=== PATIENT | female | born 1950 | race Caucasian/White ===

== ENCOUNTER 2022-11-28 10:07 | Outpatient (OUT) | payer MEDICARE, SELFPAY ==
--- NOTE | 2022-11-28 10:19 | US_ITS ---
The [address] [address] Patient Name: MAXINE MONTANO MRN: [id number] date: 1950 Sex: F Assigned Patient Location: Current Patient Location: Accession/Order Number: [id number] Exam Date: 11/28/2022 10:40 Report Date: 11/28/2022 11:40 At the request of: SHARLENE VAIL Procedure: US abdomen complete EXAM: US abdomen complete HISTORY: Abdominal Pain, Nausea COMPARISON: None. TECHNIQUE: Real-time complete abdomen ultrasound. Findings: The visualized portions of the aorta and IVC are unremarkable. Evaluation of the pancreas is limited due to overlying bowel gas. The visualized portions are unremarkable. Echogenic and coarsened hepatic parenchymal echotexture. Small geographic regions of hypoechogenicity adjacent to the gallbladder fossa. The main portal vein is patent and demonstrates hepatopedal flow. The gallbladder is fluid-filled and unremarkable without evidence of stones, wall thickening or pericholecystic fluid. No biliary ductal dilatation. The common bile duct measures 0.2 cm. The right and left kidneys measure 10.7 and 10.2 cm. Good corticomedullary differentiation bilaterally. No renal stones or collecting system dilatation. No focal mass or perinephric fluid collection. The spleen is nonenlarged measuring 9.9 cm and unremarkable. No free abdominal fluid. US/US abdomen complete IMPRESSION: 1. Fatty infiltration of the liver with regions of focal fatty sparing adjacent to the gallbladder fossa. Electronically authenticated by: ROYER RALPH Date: 11/28/2022 11:40
== END 2022-11-28 10:08 | disposition home or self-care (01) ==
LOC: US 10:13
PROVIDERS: PCP Nurse Practitioner; Visit Provider Nurse Practitioner
DX: R10.32 Left lower quadrant pain (principal); R11.2 Nausea with vomiting, unspecified; K76.0 Fatty (change of) liver, not elsewhere classified
CPT/HCPCS: 76700

== ENCOUNTER 2023-06-15 00:55 | Emergency (ER) | payer MEDICARE, SELFPAY ==
[2023-06-15] VITALS (39 sets, daily range): BP systolic 94–165; BP diastolic 60–100; PULSE 71–76; RESP 16–18; TEMP 36.6; O2SAT 90–96
--- NOTE | 2023-06-15 01:35 | ED.ABDPAIN1 ---
HPI - Abdominal Pain General Chief Complaint: Abdominal Pain Stated Complaint: abd pain Time Seen by Provider: 06/15/23 01:30 Source: patient Mode of arrival: Wheelchair Limitations: no limitations History of Present Illness HPI narrative: presents complaining of abdominal pain and nausea. LBM 8pm. pain started around 10:30AM. emesis x 4. Past abdominal hernia repair x 2 and past bowel obstruction . surgery at [facility] in [place]. Related Data Home Medications Medication Instructions Recorded Confirmed levothyroxine 100 mcg tablet mcg 06/15/23 Allergies Allergy/AdvReac Type Severity Reaction Status Date / Time codeine Allergy Verified 06/15/23 01:06 eszopiclone [From Lunesta] Allergy Verified 06/15/23 01:06 zolpidem [From Ambien] Allergy Verified 06/15/23 01:06 Review of Systems ROS Status of ROS 10 or more systems reviewed and unremarkable except as noted in history and below PFSH PFSH Social History Smoking status: Never smoker Exam Constitutional Vital Signs, click to edit/add: Last Vital Signs Temp 97.8 F 06/15/23 01:02 Pulse 71 06/15/23 04:32 Resp 16 06/15/23 04:32 BP 157/81 H 06/15/23 04:32 Pulse Ox 96 06/15/23 04:32 O2 Del Method Room Air 06/15/23 04:32 Common normals: no apparent distress, average body habitus, oriented x3, no limitations, healthy appearing, alert and well nourished [facility] Common normals: normocephalic and head/scalp atraumatic Eye Common normals: PERRL, EOMs intact bilaterally and conjunctivae normal Respiratory Common normals: normal respiratory effort, no retractions, no use of accessory muscles and clear to auscultation bilaterally Cardio Common normals: regular rate, regular rhythm, S1 normal heart sound and S2 normal heart sound GI Other: mild LLQ tenderness. No guarding or rebound Extremity Common normals: normal to inspection and full ROM Neuro Common normals: oriented x3, CN's II-XII intact bilaterally, moves all extremities, no focal motor deficits and no sensory deficits noted Psych Appearance: grossly normal Course Vital Signs Vital signs: Vital Signs Temperature 97.8 F 06/15/23 01:02 Pulse Rate 76 06/15/23 01:02 Respiratory Rate 18 02/23/24 01:02 Blood Pressure 165/67 H 06/15/23 01:02 Pulse Oximetry 96 06/15/23 01:02 Oxygen Delivery Method Room Air 06/15/23 01:02 Temperature 97.8 F 06/15/23 01:02 Pulse Rate 71 06/15/23 04:32 Respiratory Rate 16 06/15/23 04:32 Blood Pressure 157/81 H 06/15/23 04:32 Pulse Oximetry 96 06/15/23 04:32 Oxygen Delivery Method Room Air 06/15/23 04:32 MDM - Abdominal Pain MDM Narrative Medical decision making narrative: patient presents with acute onset of abdominal pain and emesis x 4. Started around 10PM. LBM normal around 8pm. Prior abdominal hernia repair x 2 and also past bowel obstruction about 10 years ago requiring placement of colostomy bag . States bag was reversed around 10 years ago also. No problem until now. Exam with mild tenderness. Pain had improved by the time she arrived here. has not required any pain medication. Nausea controlled with one dose of zofran. CT with findings of suspected low grade SBO. Discussed with surveillance monitor Surgeon Dr Mayo. Dr Mayo felt the patient should receive care at a larger facility[facility] Lab Data Labs: Lab Results 06/15/23 06/15/23 06/15/23 Range/Units 01:15 04:20 05:19 WBC 11.0 (4.0-11.0) 10^3/uL RBC 4.88 (4.20-5.40) 10^6/uL Hgb 14.3 (12.0-16.0) g/dL Hct 42.7 (36.0-48.0) % MCV 87.5 (81.0-99.0) fL MCH 29.3 (26.7-34.0) pg MCHC 33.5 (29.9-35.2) g/dL RDW 12.3 (11.0-15.0) % Plt Count 286 (150-450) 10^3/uL MPV 9.8 (9.5-13.5) fL Neut % (Auto) 75.6 H (43.0-75.0) % Lymph % (Auto) 16.8 L (20.5-60.0) % Smith % (Auto) 5.8 (1.7-12.0) % Eos % (Auto) 0.7 L (0.9-7.0) % Baso % (Auto) 0.5 (0.2-2.0) % Neut # (Auto) 8.3 H (1.4-6.5) 10^3/uL Lymph # (Auto) 1.9 (1.2-3.8) 10^3/uL Smith # (Auto) 0.6 (0.3-0.8) 10^3/uL Eos # (Auto) 0.1 (0.0-0.7) 10^3/uL Baso # (Auto) 0.1 (0.0-0.1) 10^3/uL Abs Immat Gran (auto) 0.07 H (0.00-0.03) 10^3/uL Imm/Tot Granulo (auto) 0.6 H (0.0-0.5) % Sodium 144 (136-145) mmol/L Potassium 3.7 (3.5-5.1) mmol/L Chloride 103 (98-107) mmol/L Carbon Dioxide 28.7 (21.0-32.0) mmol/L Anion Gap 16.0 BUN 14.0 (7.0-18.0) mg/dL Creatinine 0.88 (0.55-1.02) mg/dL Est GFR ( Amer) >60 (>=60) Est GFR (Non-Af Amer) >60 (>=60) BUN/Creatinine Ratio 15.9 Glucose 150 H (74-106) mg/dL Lactate 3.1 H* 3.5 H* (0.4-2.0) mmol/L Calcium 9.5 (8.5-10.1) mg/dL Total Bilirubin 0.3 (0.2-1.0) mg/dL AST 21 (15-37) U/L ALT 37 (14-59) U/L Alkaline Phosphatase 84 (46-116) U/L Troponin I High Sens 5.4 (4.0-51.3) pg/mL Total Protein 8.2 (6.4-8.2) g/dL Albumin 4.1 (3.4-5.0) g/dL Globulin 4.1 g/dL Albumin/Globulin Ratio 1.0 Lipase 56.0 (16.0-77.0) U/L Urine Color Lt. yellow (YELLOW) Urine Clarity Clear (CLEAR) Urine pH 7.0 (5.0-9.0) Ur Specific [place] 1.010 (1.005-1.025) Urine Protein Negative (NEG/TRACE) mg/dL Urine Glucose (UA) Negative (NEGATIVE) mg/dL Urine Ketones Negative (NEGATIVE) mg/dL Urine Occult Blood Negative (NEGATIVE) Urine Nitrite Negative (NEGATIVE) Urine Bilirubin Negative (NEGATIVE) Urine Urobilinogen 0.2 (0.2-1.0) EU/dL Ur Leukocyte Esterase Negative (NEGATIVE) Imaging Data Abdominal x-ray: Radiologist's impression: ITS Impressions Abdomen/Pelvis CT 06/15/23 01:36 IMPRESSION: Bowel gas pattern favoring fairly low-grade partial small bowel obstruction with a suspected point of transition in the left lower quadrant. Mild surrounding free fluid is reactive. No free air is seen. Additional nonacute findings are described above. Electronically authenticated by: BÁRBARA SHARMA Date: 06/15/2023 02:57 Discharge Plan Discharge Chief Complaint: Abdominal Pain Clinical Impression: Small bowel obstruction Patient Disposition: [facility] Discharge Location: [facility]
--- NOTE | 2023-06-15 01:36 | CT_ITS ---
The [facility] [address] [place], [place] [address] Patient Name: MAXINE MONTANO MRN: [id number] date: 1950 Sex: F Assigned Patient Location: ER Current Patient Location: .MAIN Accession/Order Number: [id number] Exam Date: 06/15/2023 02:16 Report Date: 06/15/2023 02:57 At the request of: ELMA COLEMAN Procedure: CT abdomen pelvis w con EXAM: CT abdomen pelvis w con HISTORY: abdominal pain . Prior appendectomy, hysterectomy and hernia repair. COMPARISON: Abdominal ultrasound, 11/28/2022. TECHNIQUE: IV contrast enhanced CT imaging the abdomen and pelvis was performed using 100 mL of Omnipaque 300 intravenous contrast. Sagittal and coronal reconstructions are provided. Dose reduction techniques were achieved by using automated exposure control and/or adjustment of mA and/or kV according to patient size and/or use of iterative reconstruction technique. FINDINGS: CT ABDOMEN: There is mild dependent atelectasis in the posterior lower lobes. The lung bases are otherwise clear. The imaged heart is unremarkable. The liver is enlarged but otherwise unremarkable. The gallbladder, pancreas, spleen, adrenal glands, and left kidney are unremarkable. Small right renal cortical cysts are noted. The right kidney is otherwise unremarkable. There are fairly mild aortic calcifications without aneurysm or dissection. The IVC appears normal. There is a small hiatal hernia. The stomach is otherwise normal. There are multiple fluid-filled mildly distended lower abdominal and pelvic small bowel loops with a suggested point of transition in the left lower quadrant. Mild surrounding is enteric fluid and fat stranding are present. There is no pneumatosis or free air. The distal small bowel is decompressed and unremarkable. CT PELVIS: Prior appendectomy, hysterectomy and partial sigmoidectomy are noted. There is mild colonic diverticulosis. The urinary bladder appears unremarkable. There is rectus diastasis with anterior bulging of the midline anterior abdominal wall. No loculated fluid, free air or soft tissue gas is seen in the abdomen or pelvis. A mild lumbar levoscoliosis is noted. There is advanced degenerative disc disease at L5-S1 with bilateral neural foraminal stenosis, left greater than right. No acute osseous abnormality or suspicious bony lesion is seen. CT/CT abdomen pelvis w con IMPRESSION: Bowel gas pattern favoring fairly low-grade partial small bowel obstruction with a suspected point of transition in the left lower quadrant. Mild surrounding free fluid is reactive. No free air is seen. Additional nonacute findings are described above. Electronically authenticated by: BÁRBARA SHARMA Date: 06/15/2023 02:57
[2023-06-15 01:49] LABS: Basophils Absolute Auto 0.1 10^3/uL (0.0-0.1); Basophils Percent Auto 0.5 % (0.2-2.0); Eosinophils Absolute Auto 0.1 10^3/uL (0.0-0.7); Eosinophils Percent Auto 0.7 % (0.9-7.0); Hematocrit 42.7 % (36.0-48.0); Hemoglobin 14.3 g/dL (12.0-16.0); Immature Granulocytes Abs Auto 0.07 10^3/uL (0.00-0.03); Immature Granulocytes Pct Auto 0.6 % (0.0-0.5); Lymphocytes Absolute Auto 1.9 10^3/uL (1.2-3.8); Lymphocytes Percent Auto 16.8 % (20.5-60.0); Mean Corpuscular HGB Conc 33.5 g/dL (29.9-35.2); Mean Corpuscular Hemoglobin 29.3 pg (26.7-34.0); Mean Corpuscular Volume 87.5 fL (81.0-99.0); Mean Platelet Volume 9.8 fL (9.5-13.5); Monocytes Absolute Auto 0.6 10^3/uL (0.3-0.8); Monocytes Percent Auto 5.8 % (1.7-12.0); Neutrophils Absolute Auto 8.3 10^3/uL (1.4-6.5); Neutrophils Percent Auto 75.6 % (43.0-75.0); Platelet Count 286 10^3/uL (150-450); Red Blood Count 4.88 10^6/uL (4.20-5.40); Red Cell Distribution Width 12.3 % (11.0-15.0)
[2023-06-15 02:00] LABS: Alanine Aminotransferase 37 U/L (14-59); Albumin Level 4.1 g/dL (3.4-5.0); Alkaline Phosphatase 84 U/L (46-116); Aspartate Amino Transferase 21 U/L (15-37); BUN Creatinine Ratio 15.9; Bilirubin Total 0.3 mg/dL (0.2-1.0); Calcium 9.5 mg/dL (8.5-10.1); Carbon Dioxide 28.7 mmol/L (21.0-32.0); Chloride 103 mmol/L (98-107); Estimated GFR (African America >60 (>=60); Estimated GFR (Non-African Ame >60 (>=60); Globulin 4.1 g/dL; Glucose 150 mg/dL (74-106); Potassium 3.7 mmol/L (3.5-5.1); Sodium 144 mmol/L (136-145); Total Protein 8.2 g/dL (6.4-8.2)
[2023-06-15] MEDS: 0.9 % SODIUM CHLORIDE 1,000 ML 999 ML IV (02:00)
[2023-06-15] MEDS: ONDANSETRON PF 4 MG/2 ML VIAL IV ×3 (02:00→10:52)
[2023-06-15 02:03] LABS: Troponin I High Sensitivity 5.4 pg/mL (4.0-51.3)
[2023-06-15 02:10] LABS: Lactate/Lactic Acid 3.1 mmol/L (0.4-2.0)
[2023-06-15 04:36] LABS: Bilirubin Urine NEGATIVE (NEGATIVE); Blood Urine NEGATIVE (NEGATIVE); Clarity Urine CLEAR (CLEAR); Color Urine LT. YELLOW (YELLOW); Glucose Urine UA NEGATIVE (NEGATIVE); Ketones Urine NEGATIVE (NEGATIVE); Leukocyte Esterase Urine NEGATIVE (NEGATIVE); Nitrite Urine NEGATIVE (NEGATIVE); Protein Urine NEGATIVE (NEG/TRACE); Urobilinogen Urine 0.2 EU/dL (0.2-1.0)
[2023-06-15 04:42] LABS: Urine Microscopic Indicated NO
[2023-06-15] MEDS: FENTANYL CITRATE/PF 100 MCG/2 ML VIAL 50 MCG IV (05:25)
[2023-06-15 05:49] LABS: Lactate/Lactic Acid 3.5 mmol/L (0.4-2.0)
[2023-06-15] MEDS: HYDROMORPHONE HCL 1 MG/ML CARTRIDGE 0.5 MG IVP (06:35)
--- NOTE | 2023-06-15 06:48 | XR_ITS ---
The [address] [address] Patient Name: MAXINE MONTANO MRN: [id number] date: 1950 Sex: F Assigned Patient Location: ER Current Patient Location: ER Accession/Order Number: [id number] Exam Date: 06/15/2023 06:57 Report Date: 06/15/2023 07:15 At the request of: ELMA COLEMAN Procedure: XR abdomen 1V EXAM: XR abdomen 1V HISTORY: Nasogastric tube placement. COMPARISON: CT abdomen/pelvis dated 06/15/2023. TECHNIQUE: AP erect portable view of the upper abdomen for evaluation of the esophageal tube placement. FINDINGS: The esophageal tube extends into the gastric fundus with the proximal sidehole near the GE junction. Consider advancing the esophageal tube. Please refer to the antecedent CT examination of the abdomen and pelvis for more detailed evaluation of the abdomen and pelvis. XR/XR abdomen 1V IMPRESSION: The esophageal tube extends into the gastric fundus with the proximal sidehole near the GE junction. Consider advancing the esophageal tube. Electronically authenticated by: ALEJANDRA KHAN Date: 06/15/2023 07:15
[2023-06-15] MEDS: 0.9 % SODIUM CHLORIDE 1,000 ML 75 ML IV (07:46)
[2023-06-15 08:53] LABS: Lactate/Lactic Acid 3.7 mmol/L (0.4-2.0)
[2023-06-15] MEDS: LACTATED RINGER'S SOLUTION 1,000 ML 1000 ML IV (09:25)
[2023-06-15] MEDS: HYDROMORPHONE HCL 0.5 MG/0.5 ML SYRINGE IV (10:52)
== END 2023-06-15 11:15 | disposition short-term general hospital (02) ==
PROVIDERS: Emergency Provider Internal Medicine; PCP Nurse Practitioner
DX: K56.600 Partial intestinal obstruction, unspecified as to cause (principal); Z90.710 Acquired absence of both cervix and uterus; Z90.49 Acquired absence of other specified parts of digestive tract
CPT/HCPCS: 36415; 74018; 74177; 80053; 81003; 83605; 83690; 84484; 85025; 96361; 96374; 96375; 96376; 99285; J1170; J2405; J3010; Q9967

== ENCOUNTER 2023-08-08 09:35 | Outpatient (OUT) | payer MEDICARE, SELFPAY ==
--- NOTE | 2023-08-08 09:41 | MM_ITS ---
Patient Name: MAXINE MONTANO MR#: [id number] : 1950 Exam Date: 08/08/2023 Ordering Doctor: SHARLENE VAIL . RADIOLOGY REPORT PROCEDURE: MM TOMOSYNTHESIS SCREENING BI COMPARISON: MG MAMM SCREEN ALFIE W CAD, 05/10/2017. MG MAMM SCREEN ALFIE W CAD, 04/18/2019. INDICATIONS: screening Calculator Name NCI Breast Cancer Risk Assessment Tool 5 Year Breast Cancer Risk 4.30% Lifetime Breast Cancer Risk 11.00% Personal Breast Cancer No Personal Ovarian Cancer No Treatments None Family Cancers Mother with breast cancer at age ~40; Grandmother-maternal with breast cancer at age ~82. LOCATION: [facility] BREAST COMPOSITION: There are scattered areas of fibroglandular density. FINDINGS: DIAGNOSTIC CATEGORY 2--BENIGN FINDING. NO CHANGE FROM COMPARISON. Extensive right and moderate left linear and microcalcifications, progressed from the prior exam likely representing secretory calcifications. Scattered benign-appearing lymph nodes are present. RIGHT BREAST: No significant suspicious finding. Stable area of focal asymmetry upper outer quadrant LEFT BREAST: No significant suspicious finding. RECOMMENDATIONS: ROUTINE MAMMOGRAM AND CLINICAL EVALUATION IN 12 MONTHS. PLEASE NOTE: A NORMAL MAMMOGRAM DOES NOT EXCLUDE THE POSSIBILITY OF BREAST CANCER. A CLINICALLY SUSPICIOUS PALPABLE LUMP SHOULD BE BIOPSIED. Dictated by: Fox Francisco MD on 08/08/2023 at 12:14 Approved by: Fox Francisco MD on 08/08/2023 at 12:16
== END 2023-08-08 09:36 | disposition home or self-care (01) ==
LOC: MAMMO 09:36
PROVIDERS: PCP Nurse Practitioner; Visit Provider Nurse Practitioner
DX: Z12.31 Encounter for screening mammogram for malignant neoplasm of breast (principal); Z80.3 Family history of malignant neoplasm of breast
CPT/HCPCS: 77063; 77067

== ENCOUNTER 2023-12-06 12:19 | Outpatient (OUT) | payer MEDICARE, SELFPAY ==
--- NOTE | 2023-12-06 | XR_ITS ---
The [place] [id number] Patient Name: MAXINE MONTANO MRN: [id number] date: 1950 Sex: F Assigned Patient Location: [facility] Current Patient Location: [facility] Accession/Order Number: [id number] Exam Date: 12/06/2023 12:40 Report Date: 12/10/2023 08:22 At the request of: SHARLENE VAIL Procedure: XR ribs LT min 3V w CXR1V EXAMINATION: XR ribs LT min 3V w CXR1V HISTORY: low back pain COMPARISON: No relevant comparison available. FINDINGS: LUNGS: No significant pulmonary parenchymal abnormalities. PLEURA: No pneumothorax, effusion, or pleural thickening. MEDIASTINUM: No visible mass or adenopathy. CARDIAC: No cardiomegaly or cardiac silhouette abnormality. RIBS: Contour deformity left posterior 10th rib OTHER: Negative. XR/XR ribs LT min 3V w CXR1V IMPRESSION: Clear lungs Age indeterminate fracture left posterior 10th rib Electronically authenticated by: MELODIE TORRES Date: 12/10/2023 08:22
--- NOTE | 2023-12-06 | XR_ITS ---
[address] [address] Patient Name: MAXINE MONTANO MRN: [id number] date: 1950 Sex: F Assigned Patient Location: [facility] Current Patient Location: Accession/Order Number: [id number] Exam Date: 12/06/2023 12:40 Report Date: 12/09/2023 16:23 At the request of: SHARLENE VAIL Procedure: XR lumbar spine min 4V EXAM: XR lumbar spine min 4V HISTORY: Low back pain/Fall COMPARISON: None. FINDINGS/IMPRESSION: 1. No acute fracture or dislocation. 2. Moderate disc degeneration at L5-S1 disc space. Moderate facet joint arthropathy of the lumbar spine. 3. Overlying bowel gas pattern is nonspecific and nonobstructive. 4. Vertebral body height is preserved. 5. Mild to moderate degeneration of the sacroiliac joints. 6. Mild degeneration of the bilateral hip joints. Electronically authenticated by: TRUPTI LIEBERMAN Date: 12/09/2023 16:23
--- OUTSIDE RECORDS SUMMARY | 2023-12-06 12:44 | XMS_ITS | CCD ---
Author Organization [facility] CliniSyny Care Team Providers Care Bilingual Call Center Representative Name Role Phone MARIAMA RUFFIN Admitting Unavailable MARIAMA RUFFIN Attending Unavailable CEDRIC VINCENT Referring Unavailable VINCENT, CEDRIC Primary Care Unavailable VINCENT, DR CEDRIC Cedeno Primary Care Unavailable VINCENT, DR CEDRIC Cedeno Admitting Unavailable VINCENT, DR CEDRIC Cedeno Attending Unavailable VINCENT, DR CEDRIC Cedeno Consulting Unavailable VINCENT, DR CEDRIC Cedeno Consulting Unavailable VINCENT, DR CEDRIC Cedeno Primary Care Unavailable VINCENT, DR CEDRIC Cedeno Admitting Unavailable VINCENT, DR CEDRIC Cedeno Attending Unavailable VANCE, DR MELODIE Sloan Consulting Unavailable CEDRIC VINCENT Primary Care Physician Sharlene Shah Primary Care Physician JENAE GARNICA Attending Unavailable GENNASHARLENE MARCIAL Referring Unavailable PETITTRAMSEY Carreno Attending Unavailable CHARLESCLARA FELIX Admitting Unavailable ELMA COLEMAN Referring Unavailable DAVINA PINO Attending Unavailable MARIAMA RUFFIN Attending Unavailable MARIAMA RUFFIN Attending Unavailable DAVINA PINO Referring Unavailable MARIAMA RUFFIN Referring Unavailable RUFFIN, MARIAMA Referring Unavailable TRENTON STACK Attending Unavailavila e Sharlene Shah Attending Unavailable Kera Retana Attending Unavailable Kera Retana Attending Unavailable Kera Retana Attending Unavailable Kera Retana Attending Unavailable AMERICA CRAIN Attending UnavailKera Nunes Attending Unavailable Barbara Mabry Attending Unavailable MabryBarbara harris GNorma Referring Unavailable GennaSharlene Admitting Unavailable GennaSharlene Attending Unavailable GennaSharlene marcial Attending Unavailable GennaSharlene marcial Admitting Unavailable GennaSharlene Referring Unavailable Mabry Basealex GNorma Attending Unavailable Mabry Basem GNorma Admitting Unavailable MabryBarbara Attending Unavailable MabryBarbara Referring Unavailable Genna, Sharlene Joyner Attending Unavailable Genna, Sharlene Joyner Attending Unavailable Genna, Sharlene Joyner Attending Unavailable Genna, Sharlene Joyner Attending Unavailable Genna, Sharlene Joyner Attending Unavailable Allergies Allergy Classification Reported Allergen(s) Allergy Type Date of Onset Reaction(s) Facility (13 sources) Codeine; Translations: [CODEINE] Drug Allergy 3 Unknown (qualifier value) [facility] Repository (12 sources) Eszopiclone; Translations: [LUNESTA] Drug Allergy 7 Dream, function (observable entity) [facility] Repository (12 sources) zolpidem; Translations: [AMBIEN] Drug Allergy 7 Violent acts towards others (finding) [facility] Repository (1 source) Eszopiclone; Translations: [ESZOPICLONE] Drug Allergy 4 [facility] Repository (1 source) zolpidem; Translations: [ZOLPIDEM] Drug Allergy 4 [facility] Repository Medications Current Medications Medication Drug Class(es) Dates Sig (Normalized) Sig (Original) acetaminophen 500 mg / diphenhydrAMINE hydrochloride 25 mg oral tablet (7 sources) Histamine-1 Receptor Antagonist Start: 10-02-2022 take 1 tablet by mouth once daily at bedtime Tylenol Extra Strength PM oral tablet 1 tab(s), Oral, Once a day (at bedtime), Refill(s) 0 Start Date: 10/02/22 Status: Ordered ALPRAZolam 0.25 mg oral tablet (4 sources) Benzodiazepine Start: 04-09-2023 take 1 tablet by mouth three times daily as needed for anxiety Xanax 0.25 mg Tab 0.25 mg = 1 tab(s), Oral, TID, PRN Anxiety, # 15 tab(s), Refills(s) 0, Pharmacy: [id number], 157.5, cm, 04/09/23 10:17:00 EST, Height/Length Dosing, 81.3, kg, 04/09/23 10:17:00 EST, Weight Dosing Start Date: 04/09/23 Status: Ordered amoxicillin 875 mg / clavulanate 125 mg oral tablet (1 source) Penicillin-class Antibacterial Start: 07-23-2023 End: 07-30-2023 take 1 tablet by mouth every twelve hours Augmentin 875 mg oral tablet = 1 tab(s), Oral, q12hr, X 7 day(s), # 14 tab(s), Refills(s) 0, Pharmacy: [facility]/pharmacy #[id number], 157, cm, 07/23/23 12:52:00 EDT, Height/Length Dosing, 82.9, kg, 07/23/23 12:52:00 EDT, Weight Dosing Start Date: 07/23/23 Stop Date: 07/30/23 Status: Ordered Ascorbic Acid (9 sources) Vitamin C Start: 08-25-2022 Vitamin C Daily, Refills(s) 0 Start Date: 08/25/22 Status: Ordered Aspirin (9 sources) Platelet Aggregation Inhibitor, Nonsteroidal Anti-inflammatory Drug Start: 08-25-2022 aspirin 81 mg, Daily Start Date: 08/25/22 Status: Ordered Start: 08-25-2022 aspirin Start Date: 08/25/22 Status: Ordered Chondroitin Sulfates / Glucosamine (8 sources) Start: 10-02-2022 take 1 capsule by mouth once daily Chondroitin-Glucosamine 1 cap(s), Oral, Daily, Refill(s) 0 Start Date: 10/02/22 Status: Ordered estradiol 0.1 mg/ml vaginal cream (9 sources) Estrogen Start: 09-12-2022 Estrace 0.1 mg/g Cream See Instructions, 42.5 gm, Refill(s) 6, Apply pea-sized amount around the opening of the urethra and vagina 3 times per week at night for one month then 2 times per week after for maintenance., [facility], 158, cm, 09/12/22 10:10:00 EDT, Height/Length Dosing, 82.9, kg, 09/12/22 10:10:00 EDT, Weight Dosing Start Date: 09/12/22 Status: Ordered Start: 08-25-2022 Estrace 0.1 mg /g Cream See Instructions, 42.5 gm, Refill(s) 6, Apply pea-sized amount around the opening of the urethra and surrounding tissue 3 times per week at night for one month then 2 times per week after for maintenance., [facility], 158, cm, 08/25/22 11:11... Start Date: 08/25/22 Status: Ordered Fish Oils (11 sources) Start: 02-21-2023 Fish Oil Oral, Refill(s) 0 Start Date: 02/21/23 Status: Ordered Start: 08-25-2022 take 1000 mg by mouth once dianelys ly Fish Oil 1,000 mg, Oral, Daily Start Date: 08/25/22 Status: Ordered Start: 08-25-2022 Fish Oil Oral Start Date: 08/25/22 Status: Ordered levothyroxine sodium 0.1 mg oral tablet (9 sources) l-Thyroxine Start: 07-10-2023 take 1 tablet by mouth once daily levothyroxine 100 mcg (0.1 mg) Tab 100 mcg = 1 tab(s), Oral, Daily, # 90 tab(s), Refills(s) 1, Pharmacy: [facility]/pharmacy #[id number], 157, cm, 05/23/23 10:42:00 EST, Height/Length Dosing, 77.5, kg, 05/23/23 10:42:00 EST, Weight Dosing Start Date: 07/10/23 Status: Ordered Start: 10-02-2022 take 1 tablet by malgorzata once daily levothyroxine 100 mcg (0.1 mg) Tab 100 mcg = 1 tab(s), Oral, Daily, Refills(s) 0 Start Date: 10/02/22 Status: Ordered Start: 08-25-2022 levothyroxine Daily Start Date: 08/25/22 Status: Ordered loratadine 10 mg oral tablet (8 sources) Start: 10-02-2022 take 1 tablet by mouth once daily loratadine 10 mg Tab 10 mg = 1 tab(s), Oral, Daily, Refills(s) 0 Start Date: 10/02/22 Status: Ordered Misc Medication (4 sources) Start: 12-05-2022 Misc Medicatio n calcium 500 mg, Daily Start Date: 12/05/22 Status: Ordered Prevagen (4 sources) Start: 12-05-2022 take 50 ug by mouth once daily Prevagen 50 mcg, Oral, Daily, Refills(s) 0 Start Date: 12/05/22 Status: Ordered Problems Active Problems Problem Classification Problem Date Documented Date Episodic/Chronic Abdominal pain (8 sources) Abdominal pain 11-22-2022 Episodic Anal and rectal conditions (2 sources) Rectal prolapse; Translations: [Rectal prolapse] Onset: 10-31-2023 Episodic Anxiety disorders (5 sources) Anxiety 04-09-2023 Chronic Chronic obstructive pulmonary disease and bronchiectasis (5 sources) Bronchitis 04-09-2023 Episodic Coma; stupor; and brain damage (5 sources) Daytime somnolence 04-09-2023 Episodic Deficiency and other anemia (9 sources) Anemia 08-25-2022 Episodic Diverticulosis and diverticulitis (8 sources) Diverticulitis 11-22-2022 Chronic Genitourinary symptoms and ill-defined conditions (20 sources) Sensation as if bladder still full; Translations: [Feeling of incomplete bladder emptying] Onset: 08-25-2022 Episodic Malaise and fatigue (4 sources) Other fatigue; Translations: [OTHER FATIGUE] Onset: 08-16-2021 Episodic Menopausal disorders (11 sources) Atrophic vaginitis; Translations: [Postmenopausal atrophic vaginitis] Onset: 08-25-2022 Chronic Other connective tissue disease (4 sources) Cramp in lower limb 07-23-2023 Episodic Other connective tissue disease (2 sources) Other specified disorders of muscle; Translations: [Other specified disorders of muscle] Onset: 10-31-2023 Episodic Other diseases of bladder and urethra (9 sources) Urethral stricture; Translations: [Other urethral stricture, female] Onset: 11-28-2023 09-12-2022 Episodic Other diseases of bladder and urethra (2 sources) Male urethral stricture; Translations: [Unspecified urethral stricture, male, unspecified site] Onset: 02-21-2023 Episodic Other lower respiratory disease (5 sources) Snoring 04-09-2023 Episodic Other lower respiratory disease (4 sources) Cough 05-14-2023 Episodic Other non-traumatic joint disorders (4 sources) Pain in right ankle and joints of right foot; Translations: [PAIN IN RIGHT ANKLE] Onset: 10-19-2021 Episodic Other skin disorders (5 sources) Changes in skin texture 04-09-2023 Episodic Other upper respiratory infections (5 sources) Sinusitis 04-09-2023 Chronic Other upper respiratory infections (4 sources) Posterior rhinorrhea 07-10-2023 Episodic Otitis media and related conditions (8 sources) Finding of fluid behind tympanic membrane; Translations: [Otitis media of right ear] 05-14-2023 Episodic Residual codes; unclassified (1 source) Obstructive sleep apnea syndrome; Translations: [Obstructive sleep apnea (adult) (pediatric)] Onset: 08-17-2023 Chronic Thyroid disorders (1 source) Hypothyroidism, unspecified; Translations: [HYPOTHYROIDISM UNSPECIFIED] Onset: 08-18-2021 Chronic Unclassified (9 sources) Finding of sensation of bladder 08-25-2022 Urinary tract infections (14 sources) Urinary tract infectious disease; Translations: [Urinary tract infection, site not specified] Onset: 02-21-2023 Episodic Past or Other Problems Problem Classification Problem Date Documented Da te Episodic/Chronic Intestinal obstruction without hernia (2 sources) Partial intestinal obstruction, unspecified as to cause; Translations: [Partial intestinal obstruction, unspecified as to cause] Onset: 06-15-2023 Episodic Results Test Name Value Interpretation Reference Range Facil ity Ambulatory Visit Summaryon 0 11-28-2023 Ambulatory Visit Summary Ambulatory Visit Summary FELISHA MONTANO :1950 Visit Date:11/28/2023 Ambulatory Visit Instructions Your Diagnosis Feeling of incomplete bladder emptying Urinary urgency Other urethral stricture, female Your Care Team Attending Physician - Kera Retana MD Primary Care Physician - Sharlene Correa This Is Your Medications List Contact prescribing physician if questions or concerns ascorbic acid (Vitamin C) aspirin chondroitin-glucosam ine (Chondroitin-Glucosa mine) estradiol topical (Estrace 0.1 mg/g Cream) levothyroxine (levothyroxine 100 mcg (0.1 mg) Tab) loratadine (loratadine 10 mg Tab) omega-3 polyunsaturated fatty acids (Fish Oil) Procedures Performed Cystoscopy (09/12/2022), Appendectomy, Colonoscopy, Hernia, Hysterectomy. Discharge Vitals Heart Rate (Peripheral) 79 Respiratory Rate 16 Blood Pressure 132/78 Height 157 cm Height 62 in Weight 82 kg Weight 180.4 lb BMI 33.27 What to do next Scheduled Follow-Up Appointments Sunday 9:30 AM EDT Where: [address] [address]- You Need to Schedule the Following Appointments Follow Up with Mazin PRYOR, Kera Smith, MELINDA, [facility] When: Comments: 6 mos (no labs) Where: [address] [place] [address] [phone] Medications What How Much When Instructions Unchanged ascorbic acid (Vitamin C) Every day Contact prescribing physician if questions or concerns Unchanged aspirin 81 Milligram Every day Contact prescribing physician if questions or concerns Unchanged chondroitin-glucosam ine (Chondroitin-Glucosa mine) 1 Capsules By Mouth Every day Contact prescribing physician if questions or concerns Unchanged estradiol topical (Estrace 0.1 mg/ g Cream) See instructions Apply pea-sized amount around the opening of the urethra and vagina 3 times per week at night for one month then 2 times per week after for maintenance. Contact prescribing physician if questions or concerns Unchanged levothyroxine (levothyroxine 100 mcg (0.1 mg) Tab) 1 Tablets By Mouth Every day Contact prescribing physician if questions or concerns Unchanged loratadine (loratadine 10 mg Tab) 1 Tablets By Mouth Every day Contact prescribing physician if questions or concerns Unchanged omega-3 polyunsaturated fatty acids (Fish Oil) By Mouth Contact prescribing physician if questions or concerns Allergies Ambien (Violent acts towards others) Lunesta (Dreams) codeine (Unknown) Problems Ongoing - Any problem that you are currently receiving treatment for. Abdominal pain Anemia Bronchitis Cough Daytime sleepiness Diverticulitis Dysuria Feeling of incomplete bladder emptying Fluid level behind tympanic membrane of both ears Hematuria Leg cramps Other urethral stricture, female Purulent postnasal drainage Right otitis media Sinusitis Situational anxiety Skin texture changes Snoring Urinary urgency UTI (urinary tract infection) UTI due to Klebsiella species Vaginal atrophy Patient Survey You may receive a survey via text or e-mail asking about your office visit. Please share your experience with us by completing your survey. We appreciate your feedback and thank you for choosing us for your care. Education Materials Urethral Stricture Urethral stricture is narrowing of the tube (urethra) that carries urine from the bladder out of the body. The urethra can become narrow due to scar tissue from an injury or infection. This can make it difficult to pass urine. In women, the urethra opens above the vaginal opening. In men, the urethra opens at the tip of the penis, and the urethra is much longer than it is in women. Because of the length of the male urethra, urethral stricture is much more common in men. This condition is treated with surgery. What are the causes? In both men and women, common causes of urethral stricture include: ? Urinary tract infection (UTI). ? Sexually transmitted infection (STI). ? Use of a tube placed into the urethra to drain urine from the bladder (urinary catheter). ? Urinary tract surgery. In men, common causes of urethral stricture include: ? A severe injury to the pelvis. ? Prostate surgery. ? Injury to the penis. In many cases, the cause of urethral stricture is not known. What increases the risk? You are more likely to develop this condition if you: ? Are male. Men who have had prostate surgery are at risk of developing this condition. ? Use a urinary catheter. ? Have had urinary tract surgery. What are the signs or symptoms? The main symptom of this condition is difficulty passing urine. This may cause decreased urine flow, dribbling, or spraying of urine. Other symptom of this condition may include: ? Frequent UTIs. ? Blood in the urine. ? Pain when urinating. ? Swelli (more content not included)... [facility] Urology Office/Clinic Noteon 11-28-2023 Urology Office/Clinic Note Urology Office/Clinic Note Chief Complaint 3m HPI Staff 3m DX: Feeling of Incomplete Bladder Emptying, Urgency, Urethral Stricture & UTI Estrace Cream 0.1mg/g every 4 days Did test + for Covid 12 days ago. Denies current sx. Feels empty after voiding. Urgency depends on if she is constipated. Hx of rectal prolapse. Is scheduled with Dr jenn [place] for pelvic floor evaluation later this month. Denies UTI since last encounter. Content with current urinary sx. No concerns at this time. History of Present Illness Tests reviewed: reviewed UA I have reviewed the previous health record information and history for this patient from Dr. Retana and BECKY Gary. I have reviewed and verified the staff HPI to be accurate for this encounter. Review of Systems PHQ Score Initial Depression Screen Score: 0 SCORE ROS - Provider Constitutional: denies weight loss, denies hot flashes. Eyes: denies eye problems. Gastrointestinal: denies nausea, denies vomiting. Cardiovascular: denies chest pain or angina. Integumentary: no dryness Musculoskeletal: denies musculoskeletal symptoms. ENMT: denies otolaryngeal symptoms. Respiratory: no shortness of breath. Heme/Lymph: denies easy bleeding tendency, denies easy bruising tendency. Psychiatric: no confusion, no anxiety. Genitourinary: See HPI. Physical Exam Vitals & Measurements HR: 79(Peripheral) RR: 16 BP: 132/78 HT: 62 in HT: 157 cm WT: 82 kg WT: 180.4 lb BMI: 33.27 General Appearance: alert , no acute distress, well nourished, well developed female. Assessment/Plan Had two abd hernia in 6 mos s/p surgical repair. Hx of rectal prolapse. 1. Feeling of incomplete bladder emptying (R39.14: Feeling of incomplete bladder emptying) CT AP wo con 01/30/[address] report- Kidneys unremarkable. Moderately distended bladder. Hx of hysterectomy ~20 yrs ago due to prolapse. Pt unsure if her bladder was dropping as well. Thinks she had bladder sling placed. Pt had Uros many years ago, was unable to void after filling bladder, endorses shy bladder. Did not have any tx or follow-up after that she knows of. S/p Cysto/UD 09/12/22 to 20 Fr due to sling [1] PVR (cc): 02/21/23 - 143 05/23/23 - 354 08/21/23 - 0 (voided prior to appt) Previously declined CIC/catheter. Pt has been voiding q2hrs during the day. Also using estrogen cream q4d. Reports she now feels she empties after voiding. Doing PFPT at home, feels this has helped some. -Cont timed voids, PFPT at home, estrogen cream -Has PFPT scheduled with a provider in [place] -Bowel regimen -Notify us if sx return, develop UTIs or incontinence 2. Urinary urgency (R39.15: Urgency of urination) BBS 8 (13). Urgency varies with constipation. Does not feel urinary sxs are bothersome otherwise. Again advised pt to increase water and fiber intake to manage BMs. -Cont timed voids, double voids, PFPT at home, estrogen cream -Has PFPT scheduled with a provider in [place] -Bowel regimen 3. Other urethral stricture, female (N35.82: Other urethral stricture, female) S/p Cysto/UD 09/12/22 to 20 Fr due to sling [2] Monson dilation helped, feels empty and stream is good. UA today negative for blood and infection. Denies infections since last encounter. -notify us if sx return Follow-up With When Contact Information Mazin PRYOR, Kera Smith, URL, [facility] [address], [place] [address] [phone] Additional Instructions: 6 mos (no labs) Patient Education Urethral Stricture I, Betsy Fields, personally scribed for Dr. Retana on 11/28/2023 09:16:15. . Documentation recorded by the scribe, Betsy Fields, accurately reflects the services(s) I performed and decisions made by me. Authenticated by Dr. Retana on 11/28/2023 09:26:18. Problem List/Past Medical History Ongoing Abdominal pain Anemia Bronchitis Cough Daytime sleepiness Diverticulitis Dysuria Feeling of incomplete bladder emptying Fluid level behind tympanic membrane of both ears Hematuria Leg cramps Other urethral stricture, female Purulent postnasal drainage Right otitis media Sinusitis Situational anxiety Skin texture changes Snoring Urinary urgency UTI (urinary tract infection) UTI due to Klebsiella species Vaginal atrophy Historical No qualifying data Procedure/Surgical History Cystoscopy (09/12/2022), Appendectomy, Colonoscopy, Hernia, Hysterectomy. Medications aspirin, 81 mg, Daily Chondroitin-Glucosam ine, 1 cap(s), Oral, Daily Estrace 0.1 mg/g Cream, See Instructions, 6 refills Fish Oil, Oral levothyroxine 100 mcg (0.1 mg) Tab, 100 mcg= 1 tab(s), Oral, Daily, 1 refills loratadine 10 mg Tab, 10 mg= 1 tab(s), Oral, Daily Vitamin C, Daily Allergies Ambien (Violent acts towards others) Lunesta (Dreams) codeine (Unknown) Social History Alcohol Wine, 1-2 times per year, Household alcohol concerns: No., 12/05/2022 Tobacco Never (less than 100 in (more content not included)... [facility] Comment on above: Result Comment: Elec tronically Signed By: Mazin PYROR, Kera Smith\.br\Date and Time Signed: 11/28/23 09:26 EDT\.br\Electronically Co-Signed By: Betsy Fields\.br\Date and Time Co-Signed: 11/28/23 09:16 EDT Ambulatory Visit Summaryon 0 11-16-2023 Ambulatory Visit Summary Ambulatory Visit Summary FELISHA MONTANO :1950 Visit Date:11/16/2023 Ambulatory Visit Instructions Your Diagnosis COVID-19 virus infection Cough Body aches Your Care Team Attending Physician - SUMAN STACK CNP Primary Care Physician - Sharlene Correa This Is Your Medications List acetaminophen-diphen hydrAMINE (Tylenol Extra Strength PM oral tablet) alprazolam (Xanax 0.25 mg Tab) ascorbic acid (Vitamin C) aspirin chondroitin-glucosam ine (Chondroitin-Glucosa mine) estradiol topical (Estrace 0.1 mg/g Cream) levothyroxine (levothyroxine 100 mcg (0.1 mg) Tab) loratadine (loratadine 10 mg Tab) nirmatrelvir-ritonav ir (Paxlovid 150 mg-100 mg oral tablet) omega-3 polyunsaturated fatty acids (Fish Oil) Procedures Performed Cystoscopy (09/12/2022), Appendectomy, Colonoscopy, Hernia, Hysterectomy. Discharge Vitals Temperature (Temporal Artery) 36.7 ?C Heart Rate (Peripheral) 78 Respiratory Rate 20 Blood Pressure 122/82 Height 157.0 cm Height 62 in Weight 92.1 kg Weight 202.62 lb BMI 37.36 What to do next Scheduled Follow-Up Appointments Sunday 9:30 AM EDT With: Where: [facility] [address] [address]- Sunday 9:00 AM EDT With: Mazin PRYOR, Kera Smith Where: [facility] [address] [place] [address]- Medications What How Much When Why Instructions New nirmatrelvir-ritonav ir (Paxlovid 150 mg-100 mg oral tablet) See instructions COVID-19 virus infection Cough Body aches 3 Tablets twice daily for 5 days Pickup at [facility]/pharmacy #[id number] Unchanged acetaminophen-diphen hydrAMINE (Tylenol Extra Strength PM oral tablet) 1 Tablets By Mouth Once a day (at bedtime) Unchanged alprazolam (Xanax 0.25 mg Tab) 1 Tablets By Mouth 3 times a day as needed for Anxiety Situational anxiety Sinusitis Bronchitis Daytime sleepiness Snoring Non-smoker BMI 32.0-32.9,adult Unchanged ascorbic acid (Vitamin C) Every day Unchanged aspirin 81 Milligram Every day Unchanged chondroitin-glucosam ine (Chondroitin-Glucosa mine) 1 Capsules By Mouth Every day Unchanged estradiol topical (Estrace 0.1 mg/ g Cream) See instructions Apply pea-sized amount around the opening of the urethra and vagina 3 times per week at night for one month then 2 times per week after for maintenance. Unchanged levothyroxine (levothyroxine 100 mcg (0.1 mg) Tab) 1 Tablets By Mouth Every day Unchanged loratadine (loratadine 10 mg Tab) 1 Tablets By Mouth Every day Unchanged omega-3 polyunsaturated fatty acids (Fish Oil) By Mouth Pharmacy Information [facility]/pharmacy #[id number]: [address], [place] [phone] Allergies Ambien (Violent acts towards others) Lunesta (Dreams) codeine (Unknown) Problems Ongoing - Any problem that you are currently receiving treatment for. Abdominal pain Anemia Bronchitis Cough Daytime sleepiness Diverticulitis Dysuria Feeling of incomplete bladder emptying Fluid level behind tympanic membrane of both ears Hematuria Leg cramps Purulent postnasal drainage Right otitis media Sinusitis Situational anxiety Skin texture changes Snoring Urethral stricture Urinary urgency UTI (urinary tract infection) UTI due to Klebsiella species Vaginal atrophy Patient Survey You may receive a survey via text or e-mail asking about your office visit. Please share your experience with us by completing your survey. We appreciate your feedback and thank you for choosing us for your care. [facility] Family Medicine Office/Clini c Noteon 11-16-2023 Family Medicine Office/Clinic Note Family Medicine Office/Clinic Note HPI Staff Felisha is a 73 year old female presenting with cough sore throat, dizziness, body aches, fatigue. ( COVID test NEG done yesterday (11/15/23) C/O: cough, sore throat, dizziness, body aches Duration: _ Started on 11/13/23 Body aches: yes Chills: no Fatigue: yes Cough: yes Sore throat: yes Fever: yes Headache: yes Nasal congestion: yes Loss of taste: yes Loss of smell: yes Eye itching/watering: no Sneezing: yes SOB: no Known Exposure: no Took Mucinex- Did help a little bit last dose was last night at 10 p.m.today Tested COVID- Positive IO today I have reviewed and verified the staff HPI to be accurate for this encounter. History of Present Illness 73 year old patient of Clara Shah CNP presents today for evaluation of fatigue, dizziness, cough, sore throat, and body aches since Sunday. She reports she did a COVID test on Sunday that was negative. She reports she took some OTC Mucinex that helped some but not much. Review of Systems PHQ Score Initial Depression Screen Score: 0 SCORE Constitutional: no fever, no chills, no sweats, no weakness; body aches Skin: no Jaundice, no rash, no lesions, nopetechiae ENMT: no ear pain, mild sore throat, mild congestion, no hoarseness Respiratory: no shortness of breath, mild cough, no orthopnea, no wheezing Cardiovascular: no chest pain, no palpitations, no edema Gastrointestinal: no nausea, no vomiting, no diarrhea, no GI bleeding Musculoskeletal: no back pain, no trauma Neurologic: no headache, no dizziness, no numbness, no weakness Psychiatric: no sleeping problems, no irritability, no mood swings/depression. Additional ROS info: Except as noted in the above Review of Systems and in the History of Present Illness all other systems have been reviewed and are negative or noncontributory. Physical Exam Vitals & Measurements T: 36.7 ?C(Temporal Artery) HR: 78(Peripheral) RR: 20 BP: 122/82 SpO2: 97% HT: 62 in HT: 157.0 cm WT: 92.1 kg WT: 202.62 lb BMI: 37.36 General: alert, no acute distress ENMT: TM's clear, oral mucosa moist, yes mild pharyngeal erythema or exudate Cardiovascular: regular rate and rhythm, normal peripheral perfusion Respiratory: Lungs CTA, respirations non labored Extremities: no deformity, no trauma Neurological: oriented x 4, LOC appropriate for age speech normal Assessment/Plan 1. COVID-19 virus infection (U07.1: COVID-19) COVID positive today in the office Encouraged to increase fluids OTC acetaminophen for discomfort or fever f/u as needed Ordered: nirmatrelvir-ritonav ir, See Instructions, Oral, BID, 30 tab(s), Refill(s) 0, 3 Tablets twice daily for 5 days, [id number], 157, cm, 11/16/23 10:07:00 EDT, Height/Length Dosing, 92.1, kg, 11/16/23 10:07:00 EDT, Weight Dosing Rapid COVID POC 53978 2. Cough (R05.9: Cough, unspecified) COVID positive today in the office Encouraged to increase fluids OTC acetaminophen for discomfort or fever f/u as needed Ordered: nirmatrelvir-ritonav ir, See Instructions, Oral, BID, 30 tab(s), Refill(s) 0, 3 Tablets twice daily for 5 days, [id number], 157, cm, 11/16/23 10:07:00 EDT, Height/Length Dosing, 92.1, kg, 11/16/23 10:07:00 EDT, Weight Dosing Rapid COVID POC 90892 3. Body aches (R52: Pain, unspecified) COVID positive today in the office Encouraged to increase fluids OTC acetaminophen for discomfort or fever f/u as needed Ordered: nirmatrelvir-ritonav ir, See Instructions, Oral, BID, 30 tab(s), Refill(s) 0, 3 Tablets twice daily for 5 days, [id number], 157, cm, 11/16/23 10:07:00 EDT, Height/Length Dosing, 92.1, kg, 11/16/23 10:07:00 EDT, Weight Dosing Rapid COVID POC 11318 Follow-up No qualifying data available Patient Education COVID-19 Problem List/Past Medical History Ongoing Abdominal pain Anemia Bronchitis Cough Daytime sleepiness Diverticulitis Dysuria Feeling of incomplete bladder emptying Fluid level behind tympanic membrane of both ears Hematuria Leg cramps Purulent postnasal drainage Right otitis media Sinusitis Situational anxiety Skin texture changes Snoring Urethral stricture Urinary urgency UTI (urinary tract infection) UTI due to Klebsiella species Vaginal atrophy Historical No qualifying data Procedure/Surgical History Cystoscopy (09/12/2022), Appendectomy, Colonoscopy, Hernia, Hysterectomy. Medications aspirin, 81 mg, Daily Chondroitin-Glucosam ine, 1 cap(s), Oral, Daily Estrace 0.1 mg/g Cream, See Instructions, 6 refills Fish Oil, Oral levothyroxine 100 mcg (0.1 mg) Tab, 100 mcg= 1 tab(s), Oral, Daily, 1 refills loratadine 10 mg Tab, 10 mg= 1 tab(s), Oral, Daily Paxlovid 150 mg-100 mg oral tablet, See Instructions, Oral, BID Tylenol Extra Strength PM oral tablet, 1 tab(s), Oral, Once a day (at bedtime) Vitamin C, Daily Xanax 0.25 mg Tab, 0.25 mg= 1 tab(s), Oral, TID, PRN Allergies Ambien (Violent acts toward (more content not included)... [facility] Comment on above: Result Comment: Elec tronically Signed By: SUMAN STACK CNP\.br\Date and Time Signed: 11/16/23 11:33 EDT Office Visiton 10-31-2023 Follow-up visit [id number] Felisha Montano 1950 F Date Provider Department [facility] 10/[facility] [address] Family History Problem Relation Age of Onset Breast cancer Mother Ulcers Father Family Status - Relation Status Age at Mother Father Level of Service:01255 DC OFFICE/OUTPATIENT NEW LOW MDM 30 MINUTES Reason for Visit and Comments: Follow-up [580783] - Felisha is here today for follow up: Rectal Prolapse, S/P CT Normal [facility] Screenson 08-24-2023 Screens [id number] #1.00TIFF [facility] Prescriptions/Work Noteson 0 08-23-2023 Prescriptions/Work Notes [id number] 6#1.00TIFF [facility] Ambulatory Visit Summaryon 0 08-21-2023 Ambulatory Visit Summary FELISHA MONTANO :1950 Visit Date:08/21/2023 Ambulatory Visit Instructions Your Diagnosis Feeling of incomplete bladder emptying Urinary urgency Urethral stricture UTI (urinary tract infection) Your Care Team Attending Physician - YOLI CRAIN PA-C Primary Care Physician - Sharlene Correa This Is Your Medications List acetaminophen-diphen hydrAMINE (Tylenol Extra Strength PM oral tablet) alprazolam (Xanax 0.25 mg Tab) ascorbic acid (Vitamin C) aspirin chondroitin-glucosam ine (Chondroitin-Glucosa mine) estradiol topical (Estrace 0.1 mg/g Cream) levothyroxine (levothyroxine 100 mcg (0.1 mg) Tab) loratadine (loratadine 10 mg Tab) omega-3 polyunsaturated fatty acids (Fish Oil) Procedures Performed Cystoscopy (09/12/2022), Appendectomy, Colonoscopy, Hernia, Hysterectomy. Discharge Vitals Temperature (Temporal Artery) 36.8 ?C Heart Rate (Peripheral) 63 Respiratory Rate 19 Blood Pressure 129/66 Height 157 cm Height 62 in Weight 77.5 kg Weight 170.5 lb BMI 31.44 What to do next Scheduled Follow-Up Appointments Sunday 9:30 AM EDT With: Where: [facility] Normal [address] [place] [address] \.br\ Medications\.br\ What How Much When Why Instructions\.br\ Unchanged acetaminophen-diphen hydrAMINE (Tylenol Extra Strength PM oral tablet) 1 Tablets By Mouth Once a day (at bedtime)\.br\ Unchanged alprazolam (Xanax 0.25 mg Tab) 1 Tablets By Mouth 3 times a day as needed for Anxiety Situational anxiety Sinusitis Bronchitis Daytime sleepiness Snoring Non-smoker BMI 32.0-32.9,adult\.br\ Unchanged ascorbic acid (Vitamin C) Every day\.br\ Unchanged aspirin 81 Milligram Every day\.br\ Unchanged chondroitin-glucosam ine (Chondroitin-Glucosa mine) 1 Capsules By Mouth Every day\.br\ Unchanged estradiol topical (Estrace 0.1 mg/ g Cream) See instructions Apply pea-sized amount around the opening of the urethra and vagina 3 times per week at night for one month then 2 times per week after for maintenance. \.br\ Unchanged levothyroxine (levothyroxine 100 mcg (0.1 mg) Tab) 1 Tablets By Mouth Every day\.br\ Unchanged loratadine (loratadine 10 mg Tab) 1 Tablets By Mouth Every day\.br\ Unchanged omega-3 polyunsaturated fatty acids (Fish Oil) By Mouth\.br\ Allergies\.br\ Ambien (Violent acts towards others)\.br\ Lunesta (Dreams)\.br\ codeine (Unknown)\.br\ Problems\.br\ Ongoing - Any problem that you are currently receiving treatment for.\.br\ Abdominal pain\.br\ Anemia\.br\ Bronchitis\.br\ Cough\.br\ Daytime sleepiness\.br\ Diverticulitis\.br\ Dysuria\.br\ Feeling of incomplete bladder emptying\.br\ Fluid level behind tympanic membrane of both ears\.br\ Hematuria\.br\ Leg cramps\.br\ Purulent postnasal drainage\.br\ Right otitis media\.br\ Sinusitis\.br\ Situational anxiety\.br\ Skin texture changes\.br\ Snoring\.br\ Urethral stricture\.br\ Urinary urgency\.br\ UTI (urinary tract infection)\.br\ UTI due to Klebsiella species\.br\ Vaginal atrophy\.br\ Patient Survey\.br\ You may receive a survey via text or e-mail asking about your office visit. Please share your experience with us by completing your survey. We appreciate your feedback and thank you for choosing us for your care.\.br\ Education Materials\.br\ Antibiotic Medicine, Adult\.br\ \.br\ Antibiotic medicines are used to treat infections caused by bacteria, such as strep throat and urinary tract infection (UTI). Antibiotic medicines will not work for colds, the flu (influenza), or other illnesses caused by viruses. These medicines work by killing the bacteria that are making you sick. Antibiotics can also have serious side effects. It is important that you take antibiotic medicines safely and only when needed.\.br\ When do I need to take antibiotics?\.br\ You may need antibiotics for:\.br\ ? \.br\ UTI.\.br\ ? \.br\ Strep throat.\.br\ ? \.br\ Bacterial sinusitis.\.br\ ? \.br\ Meningitis. This infection affects the spinal cord and brain.\.br\ ? \.br\ Serious lung infection.\.br\ You may start antibiotics while your health care provider waits for your results from any tests for possible infection. Tests may include a culture of your throat, urine, blood, or mucus. Your health care provider may change or stop your antibiotic depending on your test results.\.br\ When are antibiotics not needed?\.br\ You do not need antibiotics for most common illnesses. These illnesses may be caused by a virus, not by bacteria. You do not need antibiotics for:\.br\ ? \.br\ The common cold.\.br\ ? \.br\ Influenza.\.br\ ? \.br\ Sore throat.\.br\ ? \.br\ Discolored mucus.\.br\ ? \.br\ Bronchitis.\.br\ Antibiotics are not always needed for all infections caused by bacteria. Many of these infections clear up without antibiotic treatment. Do not ask for or take antibiotics when they are not necessary.\.br\ How long should I take my antibiotic?\.br\ You must take the entire prescription. Continue to take your antibiotic for as long as told by your health care provider. Do not stop taking it even if you start to feel better. If you stop taking it too soon:\.br\ ? \.br\ You may start to feel sick again.\.br\ ? \.br\ Your infection may become harder to treat.\.br\ Each course of antibiotics needs a different amount of time to work. Some antibiotic courses last only a few days. Some last about a week to 10 days. In some cases, you may need to take antibiotics for a few weeks to completely treat your infection.\.br\ What if I miss a dose?\.br\ Try not to miss any doses of medicine. If you miss a dose, call your health care provider or pharmacist for advice. Sometimes it is okay to take the missed dose as soon as possible. Do not take double or extra doses.\.br\ What are the risks of taking antibiotics?\.br\ Antibiotics can cause:\.br\ ? \.br\ Allergic reactions.\.br\ ? \.br\ Nausea.\.br\ ? \.br\ Yeast infections.\.br\ ? \.br\ Liver problems.\.br\ Antibiotics can also cause an infection called Clostridioides difficile (C. difficile or C. diff), which causes severe diarrhea. This infection happens when the antibiotics kill the healthy bacteria in your intestines. This allows C. diff to grow. C. diff needs to be treated right away. Let your health care provider know if:\.br\ ? \.br\ You develop diarrhea while taking an antibiotic.\.br\ ? \.br\ You develop diarrhea after you stop taking an antibiotic. C. diff infection can start weeks after stopping the antibiotic.\.br\ Taking an antibiotic also puts you at risk for getting sick in the future with bacteria that do not respond to medicine (antibiotic-resistan t infection). Antibiotics can cause bacteria to change so that if the antibiotic is taken again, the medicine cannot kill the bacteria. These infections can be more serious and, in some cases, life-threatening.\.b r\ Do antibiotics affect control?\.br\ control pills may not work while you are on antibiotics. If you are taking control pills, continue taking them as usual and use a second form of control, such as a condom, to avoid unwanted . Continue using the second form of control until your health care provider says you can stop.\.br\ What else should I know about taking antibiotics?\.br\ \.br\ It is important for you to take antibiotics exactly as told. Make sure to:\.br\ ? \.br\ Take the correct amount of medicine at the same time each day.\.br\ ? \.br\ Ask your health care provider:\.br\ ? \.br\ How long to wait between doses.\.br\ ? \.br\ If your antibiotic should be taken with food.\.br\ ? \.br\ If there are any foods, drinks, or medicines that you should avoid while taking your antibiotics.\.br\ ? \.br\ If there are any side effects you should be aware of.\.br\ ? \.br\ Use only the antibiotics prescribed for you by your health care provider. Do not use antibiotics prescribed for someone else.\.br\ ? \.br\ Drink a large glass of water when taking your antibiotics. Drink enough fluid to keep your urine pale yellow.\.br\ ? \.br\ Ask your pharmacist for a syringe, cup, or spoon that properly measures your antibiotics.\.br\ ? \.br\ Throw away any leftover medicine.\.br\ Follow these instructions at home:\.br\ ? \.br\ Take qfxb-ron-uoxrutf and prescription medicines as told by your health care provider.\.br\ ? \.br\ Return to your normal activities as told by your health care provider. Ask your health care provider what activities are safe for you.\.br\ ? \.br\ Keep all follow-up visits as told by your health care provider. This is important.\.br\ Contact a healt [facility] Patient Educationon 08-21-19 Patient Education Caregiving Antibiotic Medicine, Adult Antibiotic medicines are used to treat infections caused by bacteria, such as strep throat and urinary tract infection (UTI). Antibiotic medicines will not work for colds, the flu (influenza), or other illnesses caused by viruses. These medicines work by killing the bacteria that are making you sick. Antibiotics can also have serious side effects. It is important that you take antibiotic medicines safely and only when needed. When do I need to take antibiotics? You may need antibiotics for: ? UTI. ? Strep throat. ? Bacterial sinusitis. ? Meningitis. This infection affects the spinal cord and brain. ? Serious lung infection. You may start antibiotics while your health care provider waits for your results from any tests for possible infection. Tests may include a culture of your throat, urine, blood, or mucus. Your health care provider may change or stop your antibiotic depending on your test results. When are antibiotics not needed? You do not need antibiotics for most common illnesses. These illnesses may be caused by a virus, not by bacteria. You do not need antibiotics for: ? The common cold. ? Influenza. ? Sore throat. ? Discolored mucus. ? Bronchitis. Antibiotics are not always needed for all infections caused by bacteria. Many of these infections clear up without antibiotic treatment. Do not ask for or take antibiotics when they are not necessary. How long should I take my antibiotic? You must take the entire prescription. Continue to take your antibiotic for as long as told by your health care provider. Do not stop taking it even if you start to feel better. If you stop taking it too soon: ? You may start to feel sick again. ? Your infection may become harder to treat. Each course of antibiotics needs a different amount of time to work. Some antibiotic courses last only a few days. Some last about a week to 10 days. In some cases, you may need to take antibiotics for a few weeks to completely treat your infection. What if I miss a dose? Try not to miss any doses of medicine. If you miss a dose, call your health care provider or pharmacist for advice. Sometimes it is okay to take the missed dose as soon as possible. Do not take double or extra doses. What are the risks of taking antibiotics? Antibiotics can cause: ? Allergic reactions. ? Nausea. ? Yeast infections. ? Liver problems. Antibiotics can also cause an infection called Clostridioides difficile (C. difficile or C. diff), which causes severe diarrhea. This infection happens when the antibiotics kill the healthy bacteria in your intestines. This allows C. diff to grow. C. diff needs to be treated right away. Let your health care provider know if: ? You develop diarrhea while taking an antibiotic. ? You develop diarrhea after you stop taking an antibiotic. C. diff infection can start weeks after stopping the antibiotic. Taking an antibiotic also puts you at risk for getting sick in the future with bacteria that do not respond to medicine (antibiotic-resistan t infection). Antibiotics can cause bacteria to change so that if the antibiotic is taken again, the medicine cannot kill the bacteria. These infections can be more serious and, in some cases, life-threatening. Do antibiotics affect control? control pills may not work while you are on antibiotics. If you are taking control pills, continue taking them as usual and use a second form of control, such as a condom, to avoid unwanted . Continue using the second form of control until your health care provider says you can stop. What else should I know about taking antibiotics? It is important for you to take antibiotics exactly as told. Make sure to: ? Take the correct amount of medicine at the same time each day. ? Ask your health care provider: ? How long to wait between doses. ? If your antibiotic should be taken with food. ? If there are any foods, drinks, or medicines that you should avoid while taking your antibiotics. ? If there are any side effects you should be aware of. ? Use only the antibiotics prescribed for you by your health care provider. Do not use antibiotics prescribed for someone else. ? Drink a large glass of water when taking your antibiotics. Drink enough fluid to keep your urine pale yellow. ? Ask your pharmacist for a syringe, cup, or spoon that properly measures your antibiotics. ? Throw away any leftover medicine. Follow these instructions at home: ? Take nqto-uyt-tpgutze and prescription medicines as told by your health care provider. ? Return to your normal activities as told by your health care provider. Ask your health care provider what activities are safe for you. ? Keep all follow-up visits as told by your health care provider. This is important. Contact a health care provider if: ? Your symptoms get worse. (more content not included)... [facility] Patient Eval Forms Officeon 08-21-2023 Patient Eval Forms Office [id number] 5#1.00TIFF [facility] Urology Office/Clinic Noteon 08-21-2023 Urology Office/Clinic Note Chief Complaint 2 month with PVR HPI Staff KML pt. 3m PVR. DX: Feeling of Incomplete Emptying, Urgency, Urethral Stricture & UTI *Estrace Cream 0.1mg/g every 4 days. [facility] ER 06/15/23 CC: abdominal pain CT ap w 06/15/23 Ab XR 06/15/23 DX: SBO Pt was transferred to [facility] DC'd home 06/17/23 w/new Dx of Diverticulitis Dysuria: no Incomplete bladder emptying: occasionally, PVR 0mL Hematuria: no Frequency: 2-3 hours Urgency: Pt. states if she waits to long Nocturia: occasionally 1x Stream: most of the time good stream Post void dripping: no Wearing pads/ Depends: no Urge incontinence: occasionally Stress incontinence: no Incontinence without Sensory Awareness: no Abdominal pain: no Flank pain: no Review of Systems PHQ Score Initial Depression Screen Score: 0 SCORE no fever, chills, malaise, myalgia. no rash/lesions. no chest pain, palpitations, or SOB. no abdominal pain, nausea, vomiting. no unilateral calf swelling, redness, pain Physical Exam Vitals & Measurements T: 36.8 ?C(Temporal Artery) HR: 63(Peripheral) RR: 19 BP: 129/66 HT: 62 in HT: 157 cm WT: 77.5 kg WT: 170.5 lb BMI: 31.44 General: nontoxic, NAD Mouth: moist mucosa Lungs: normal respiratory effort Cardio: regular rate, good distal perfusion Abdomen: nondistended, no suprapubic distention or tenderness, no CVA tenderness Neurologic: Grossly normal Skin: No rashes or suspicious lesions Assessment/Plan Had two abd hernia in 6 mos s/p surgical repair. Hx of rectal prolapse. 1. Feeling of incomplete bladder emptying (R39.14: Feeling of incomplete bladder emptying) CT AP wo con 01/30/[address] report- Kidneys unremarkable. Moderately distended bladder. Hx of hysterectomy 20 yrs ago due to prolapse. Pt unsure if her bladder was dropping as well. Thinks she had bladder sling placed. Pt had Uros many years ago, was unable to void after filling bladder, endorses shy bladder. Did not have any tx or follow-up after that she knows of. S/p Cysto/UD 09/12/22 to 20 Fr due to sling 05/23/23: PVR 354 (143cc) Occasionally will get up in the middle of the night due to urge to void, slow stream and small amounts. Sometimes will occur during the day as well. Denies visible blood in urine. Voiding q3-4hrs, does admit to needing to do timed voids. Discussed bladder pathophysiology. Advised pt that she is not emptying well and should start to do the timed voids again. Counseled pt on the risks of not voiding often including UTIs, bladder atony and renal failure. She declines CIC/cath. -Timed voids. Dbl voids. Estrace. Behavior mods. F/u 1-2 mos w PVR. Reconsider CIC vs UD if PVR remains elevated at f/u TODAY: pt unable to void. emptied at home before arrival. PVR 0ml. has been compliant w timed voiding and dbl void maneuvers. using estrogen cream as instructed. Ordered: 13736 Measure Post Void residual urine and/or bladder capacity by US- non-imaging Body Mass Index (BMI) documented 3008F Complex E&M Add on G2211 Current tobacco non-user 1036F Depression Screening Negative 3352F E&M of Est. Patient Low 20-29 Min 17829 Medication list documented in medical record 1159F Most recent diastolic blood pressure <80 mm Hg 3078F Patient screen for fall risk: no falls in last year or 1 fall with no injury in last year 1101F Review of all meds by a prescribing practitioner or clinical pharmacist documented in EHR 1160F Systolic BP <130 mm Hg (Most Recent) 3074F 2. Urinary urgency (R39.15: Urgency of urination) 05/23/23: BBS 14. Will not give OAB meds at this time given incomplete bladder emptying. -Timed voiding, PFPT at home. Bowel regimen. See #1. TODAY: reports not too bothersome. rare UUI. does not feel sx warrant tx. BBSQ 13 good control. bowel habits much better w fiber. Ordered: Complex E&M Add on G2211 E&M of Est. Patient Low 20-29 Min 56471 3. Urethral stricture (N35.919: Unspecified urethral stricture, male, unspecified site) S/p Cysto/UD 09/12/22 to 20 Fr due to sling Pt states that she has noticed a lot of improvement in her urinary stream since starting the Estrace cream. Denies weak stream consistently, only when holds urine for too long. -Pt to notify us if having consistently weak stream again for potential repeat dilation TODAY: denies weak stream. does not think time for another UD. Ordered: Complex E&M Add on G2211 E&M of Est. Patient Low 20-29 Min 82486 4. UTI (urinary tract infection) (N39.0: Urinary tract infection, site not specified) PCP 10/02/22 c/o pain and burning with urinating. Was given Macrobid & Pyridium. UA showed blood, C&S >100,000 cfu/ml Staphylococcus haemolyticus 100 cfu/ml Mixed skin contaminants 10/23/22 pt had called her PCP stating she finished scripts and was still having pain and burning, was given a second round of abx. Abdominal US 11/28/22 - no stones or hydro -Cranberry pills, probiotics, D mannose. Estrace cream. Timed voids, see #1. TODAY: not taking OTC preventives. is usi (more content not included)... [facility] Comment on above: Result Comment: Elec tronically Signed By: YOLI CRAIN PA-C\Date and Time Signed: 08/21/23 15:19 EDT Consent for Treatmenton 07-23 Consent for Treatment [id number] #1.00TIFF Normal [facility] Sleep Office/Clinic Noteon 0 08-17-2023 Sleep Office/Clinic Note History of Present Illness Here to establish care for underlying obstructive sleep apnea. The patient reports that she was told by her that she snores loudly at night and awakens herself up while asleep feeling choked and gasping for air. She has significant fatigue and daytime sleepiness Given the above the patient underwent a sleep study and is here to discuss results and guide further management. She reports that her weight has been relatively stable. Review of Systems Constitutional: no fever, no chills, no sweats, no weakness Skin: no Jaundice, no rash, no lesions, no petechiae ENT: no ear pain, no sore throat, no congestion, no hoarseness Respiratory: Denies shortness of breath, cough or wheezing Cardiovascular: no chest pain, no palpitations, no edema Gastrointestinal: no nausea, no vomiting, no diarrhea, no GI bleeding Genitourinary: no dysuria, no hematuria, no discharge, no pain Musculoskeletal: no back pain, no trauma Neurologic: no headache, no dizziness, no numbness, no weakness Psychiatric: no irritability, no mood swings/depression. Heme/Lymph: no bleeding tendency, no bruising tendency, no petechiae, no swollen nodes Allergy/Immunologic: no seasonal allergies, no food allergies, no recurrent infections, no impaired immunity Additional ROS info: Except as noted in the above Review of Systems and in the History of Present Illness all other systems have been reviewed and are negative or noncontributory. Physical Exam General: Awake, alert, in no acute distress Skin: warm, dry Head: no trauma, normocephalic. Prolonged soft palate Neck: Trachea midline, no adenopathy, no tenderness Eye: normal conjunctiva, sclera clear ENMT: TM's clear, oral mucosa moist, no pharyngeal erythema or exudate Cardiovascular: regular rate and rhythm, normal peripheral perfusion Respiratory: Good breath sounds to both lung vyas without wheezing or crackles. Gastrointestinal: soft, non distended, no tenderness, no guarding. Back: No tenderness, Normal ROM, Normal alignment. Extremities: no deformity, no trauma Neurological: oriented x 4, LOC appropriate for age, CN II-XII intact, motor strength equal & normal bilaterally, sensation equal & normal bilaterally, speech normal Psychiatric: cooperative, affect appropriate for age, normal judgement, normal psychiatric thoughts. Assessment/Plan 1. QUINN (obstructive sleep apnea) (G47.33: Obstructive sleep apnea (adult) (pediatric)) The patient's sleep study was reviewed and results were discussed with the patient in details. Evidence of moderate underlying obstructive sleep apnea with an apnea hypotony index of 16.7/hour with mild oxygen desaturation noted. The etiology of obstructive sleep apnea and methods of treatment were discussed with the patient in details. She is agreeable to treatment. I will arrange for a CPAP machine with a pressure of 10 cm via mask of her choice with heated humidity and see her back after 6 to 8 weeks with a download from her machine to reevaluate her treatment plan. She will call me back in the meantime if any issues. Follow-up With When Contact Information Raghavendra PRYOR, Barbara Agarwal, PUL, ANNA Within [address] [place] [address] [facility] [place] [address]- Additional Instructions: Problem List/Past Medical History Ongoing Abdominal pain Anemia Bronchitis Cough Daytime sleepiness Diverticulitis Dysuria Feeling of incomplete bladder emptying Fluid level behind tympanic membrane of both ears Hematuria Leg cramps Purulent postnasal drainage Right otitis media Sinusitis Situational anxiety Skin texture changes Snoring Urethral stricture Urinary urgency UTI (urinary tract infection) UTI due to Klebsiella species Vaginal atrophy Historical No qualifying data Procedure/Surgical History Cystoscopy (09/12/2022), Appendectomy, Colonoscopy, Hernia, Hysterectomy. Medications aspirin, 81 mg, Daily Chondroitin-Glucosam ine, 1 cap(s), Oral, Daily Estrace 0.1 mg/g Cream, See Instructions, 6 refills Fish Oil, Oral levothyroxine 100 mcg (0.1 mg) Tab, 100 mcg= 1 tab(s), Oral, Daily, 1 refills loratadine 10 mg Tab, 10 mg= 1 tab(s), Oral, Daily Tylenol Extra Strength PM oral tablet, 1 tab(s), Oral, Once a day (at bedtime) Vitamin C, Daily Xanax 0.25 mg Tab, 0.25 mg= 1 tab(s), Oral, TID, PRN Allergies Ambien (Violent acts towards others) Lunesta (Dreams) codeine (Unknown) Social History Alcohol Wine, 1-2 times per year, Household alcohol concerns: No., 12/05/2022 Tobacco Never (less than 100 in lifetime) Tobacco Use:. Never Smokeless Tobacco Use:. Household tobacco concerns: No. Yes, 07/23/2023 Family History Arthritis: Mother. High blood pressure: Mother. Multiple sclerosis: Father. Primary malignant neoplasm of female breast: Mother. Immunizations Vaccine Date Status Comments zoster vaccine, inactivated 02/16/2023 Recorded diphtheria/pertussis , ac (more content not included)... Normal [facility] Comment on above: Result Comment: Elec tronically Signed By: Raghavendra PRYOR, Barbara Agarwal\.br\Date and Time Signed: 08/17/23 12:20 EDT Outside Mammographyon 2023 Outside Mammography [id number] #1.00TIFF [facility] Follow-Upon 08-07-2023 Follow-Up [id number] Felisha Montano 1950 F Date Provider Department Center 08/07/2023 [facility] SURG [address] Family History Problem Relation Age of Onset Breast cancer Mother Ulcers Father Family Status - Relation Status Age at Mother Father Level of Service:64739 DC OFFICE/OUTPATIENT ESTABLISHED LOW MDM 20 MIN Reason for Visit and Comments: Hospital Follow-up [832] - Felisha is here today for a hospital follow up for small bowel obstruction. Normal [facility] Reminderson 07-25-2023 Reminders - From: Sharlene Correa To: [facility] - Clinical; Sent: 2023 08:17:42 EDT Show up: 2023 08:17:00 EDT Subject: Ambulatory Reminder Due Date/Time: 07/25/2023 08:16:00 EDT electrolytes are normal not sure why she is getting leg cramps Results: Date Result Name Value Ref Range 07/23/2023 13:30 Glucose Lvl 107 mg/dL (55 - 199) 07/23/2023 13:30 BUN 13 mg/dL (5 - 21) 07/23/2023 13:30 Creatinine 0.7 mg/dL (0.5 - 1.3) 07/23/2023 13:30 eGFR 92 mL/min/1.73 m2 (>=59 - ) 07/23/2023 13:30 BUN/Creat Ratio 19 (10 - 20) 07/23/2023 13:30 Sodium Lvl 136 mmol/L (135 - 145) 07/23/2023 13:30 Potassium Lvl 4.1 mmol/L (3.5 - 5.3) 07/23/2023 13:30 Chloride 103 mmol/L (101 - 111) 07/23/2023 13:30 CO2 26 mmol/L (21 - 31) 07/23/2023 13:30 AGAP 11 mEq/L (6 - 16) 07/23/2023 13:30 Calcium Lvl 9.6 mg/dL (8.9 - 11.1) please notify patient of message below, also let her know Sharlene advised she should try some magnesium OTC to see if that may help. Patient informed of lab results and instructions. Patient voiced understanding. Normal [facility] Ambulatory Visit Summaryon 0 07-23-2023 Ambulatory Visit Summary FELISHA MONTANO :1950 Visit Date:07/23/2023 Ambulatory Visit Instructions Your Diagnosis Right otitis media Leg cramps Fluid level behind tympanic membrane of both ears BMI 33.0-33.9,adult Non-smoker Your Care Team Attending Physician - Sharlene Correa Primary Care Physician - Sharlene Correa This Is Your Medications List acetaminophen-diphen hydrAMINE (Tylenol Extra Strength PM oral tablet) alprazolam (Xanax 0.25 mg Tab) amoxicillin-clavulan ate (Augmentin 875 mg oral tablet) ascorbic acid (Vitamin C) aspirin chondroitin-glucosam ine (Chondroitin-Glucosa mine) estradiol topical (Estrace 0.1 mg/g Cream) levothyroxine (levothyroxine 100 mcg (0.1 mg) Tab) loratadine (loratadine 10 mg Tab) omega-3 polyunsaturated fatty acids (Fish Oil) Procedures Performed Cystoscopy (09/12/2022), Appendectomy, Colonoscopy, Hernia, Hysterectomy. Discharge Vitals Heart Rate (Peripheral) 64 Respiratory Rate 18 Blood Pressure 122/80 Height 157.0 cm Height 62 in Weight 82.9 kg Weight 182.38 lb BMI 33.63 What to do next Scheduled Follow-Up Appointments Sunday 2:20 PM EDT With: PARAS CROSS, YOLI Cedeno Where: [facility] [id number] \.br\ Medications\.br\ What How Much When Why Instructions\.br\ New amoxicillin-clavulan ate (Augmentin 875 mg oral tablet) 1 Tablets By Mouth Every 12 hours Right otitis media Leg cramps Fluid level behind tympanic membrane of both ears BMI 33.0-33.9,adult Non-smoker Duration: 7 Days Pickup at [facility]/pharmacy #[id number]\.br\ Unchanged acetaminophen-diphen hydrAMINE (Tylenol Extra Strength PM oral tablet) 1 Tablets By Mouth Once a day (at bedtime)\.br\ Unchanged alprazolam (Xanax 0.25 mg Tab) 1 Tablets By Mouth 3 times a day as needed for Anxiety Situational anxiety Sinusitis Bronchitis Daytime sleepiness Snoring Non-smoker BMI 32.0-32.9,adult\.br\ Unchanged ascorbic acid (Vitamin C) Every day\.br\ Unchanged aspirin 81 Milligram Every day\.br\ Unchanged chondroitin-glucosam ine (Chondroitin-Glucosa mine) 1 Capsules By Mouth Every day\.br\ Unchanged estradiol topical (Estrace 0.1 mg/ g Cream) See instructions Apply pea-sized amount around the opening of the urethra and vagina 3 times per week at night for one month then 2 times per week after for maintenance. \.br\ Unchanged levothyroxine (levothyroxine 100 mcg (0.1 mg) Tab) 1 Tablets By Mouth Every day\.br\ Unchanged loratadine (loratadine 10 mg Tab) 1 Tablets By Mouth Every day\.br\ Unchanged omega-3 polyunsaturated fatty acids (Fish Oil) By Mouth\.br\ Pharmacy Information\.br\ [id number]: [address], [place] [id number] [phone]\.br\ Allergies\.br\ Ambien (Violent acts towards others)\.br\ Lunesta (Dreams)\.br\ codeine (Unknown)\.br\ Problems\.br\ Ongoing - Any problem that you are currently receiving treatment for.\.br\ Abdominal pain\.br\ Anemia\.br\ Bronchitis\.br\ Cough\.br\ Daytime sleepiness\.br\ Diverticulitis\.br\ Dysuria\.br\ Feeling of incomplete bladder emptying\.br\ Fluid level behind tympanic membrane of both ears\.br\ Hematuria\.br\ Leg cramps\.br\ Purulent postnasal drainage\.br\ Right otitis media\.br\ Sinusitis\.br\ Situational anxiety\.br\ Skin texture changes\.br\ Snoring\.br\ Urethral stricture\.br\ Urinary urgency\.br\ UTI (urinary tract infection)\.br\ UTI due to Klebsiella species\.br\ Vaginal atrophy\.br\ Patient Survey\.br\ You may receive a survey via text or e-mail asking about your office visit. Please share your experience with us by completing your survey. We appreciate your feedback and thank you for choosing us for your care.\.br\ \.br\ [facility] BMPon 07-23-2023 Anion gap [Moles/Vol] 11 mmol/L Normal 6-16 [facility] Comment on above: Performed By: #### 1 [id number] ####[facility] [address] [place] [address] Calcium [Mass/Vol] 9.6 mg/dL Normal 8.9-11.1 [facility] Comment on above: Performed By: #### 1 [id number] ####[facility] [address] [place] [address] Chloride [Moles/Vol] 103 mmol/L Normal 101-111 [facility] Comment on above: Performed By: #### 1 [id number], [id number] ####[facility] [address] [place] [address] CO2 [Moles/Vol] 26 mmol/L Normal 21-31 [facility] Comment on above: Performed By: #### 1 [id number], [id number] ####[facility] [address] [place] [address] Creatinine [Mass/Vol] 0.7 mg/dL Normal 0.5-1.3 [facility] Comment on above: Performed By: #### 1 [id number], [id number] ####[facility] [address] [place] [address] Glucose [Mass/Vol] 107 mg/dL Normal 55-199 [facility] Comment on above: Performed By: #### 1 [id number], [id number] ####[facility] [address] [place] [address] Potassium [Moles/Vol] 4.1 mmol/L Normal 3.5-5.3 [facility] Comment on above: Performed By: #### 1 [id number], [id number] ####[facility] [address] [place] [address] Sodium [Moles/Vol] 136 mmol/L Normal 135-145 [facility] Comment on above: Performed By: #### 1 [id number], [id number] ####[facility] [address] [place] [address] Urea nitrogen [Mass/Vol] 13 mg/dL Normal 5-21 [facility] Comment on above: Performed By: #### 1 [id number], [id number] ####[facility] [address] [place] [address] Urea nitrogen/Creatinin e [Mass ratio] 19 No Units Normal 10-20 [facility] Comment on above: Performed By: #### 1 [id number], [id number] ####[facility] [address] [place] [address] CHEMISTRYOrdered By: SYSTEM SYSTEM on 04-01-2024 Anion gap [Moles/Vol] 11 mmol/L Normal 6 - 16 mEq/L Remisol Chem Calcium [Mass/Vol] 9.6 mg/dL Normal 8.9 - 11.1 mg/dL Rem[facility] Chloride [Moles/Vol] 103 mmol/L Normal 101 - 111 mmol/L Rem[facility] CO2 [Moles/Vol] 26 mmol/L Normal 21 - 31 mmol/L Remis ol Chem Creatinine [Mass/Vol] 0.7 mg/dL Normal 0.5 - 1.3 mg/dL Remisol Chem eGFR 92 mL/min/1.73 m2 Normal >=59mL/min/1.73 m2 Remisol Chem Glucose [Mass/Vol] 107 mg/dL Normal 55 - 199 mg/dL Re misol Chem Potassium [Moles/Vol] 4.1 mmol/L Normal 3.5 - 5.3 mmol/L Rem[facility] Sodium [Moles/Vol] 136 mmol/L Normal 135 - 145 mmol/L Rem[facility] Urea nitrogen [Mass/Vol] 13 mg/dL Normal 5 - 21 mg/dL Rem[facility] Chem Urea nitrogen/Creatinin e [Mass ratio] 19 mg/mg Normal 10 - 20 [facility] Consenton 07-23-2023 Consent [id number] #1.00TIFF Normal [facility] Family Medicine Office/Clini c Noteon 07-23-2023 Family Medicine Office/Clinic Note HPI Staff Felisha is a 72 year old female presenting for acute visit DARYL: 07/10/23 started Medrol dose pack, fluid behind tympanic membrane bilateral ears Pt states after taking the Medrol dose pack she felt better then 3 days ago starting feeling bad again having headaches/dizziness , lost voice, non productive cough, nasal drainage, denies fevers, bilateral ears feel plugged 4 days ago started having intermittent barbra horses to left knee going up left thigh. pt has increased her water intake History of Present Illness pt presents today for cough, nasal congestion and losing her voice. having headaches and dizziness as well Review of Systems PHQ Score Initial Depression Screen Score: 0 SCORE Physical Exam Vitals & Measurements HR: 64(Peripheral) RR: 18 BP: 122/80 SpO2: 93% HT: 62 in HT: 157.0 cm WT: 82.9 kg WT: 182.38 lb BMI: 33.63 General: alert, no acute distress ENMT: oral mucosa moist, yes pharyngeal erythema or exudate, SHELDON TM full of fluid, right TM and canal red Cardiovascular: regular rate and rhythm, normal peripheral perfusion Respiratory: Lungs CTA, respirations non labored Extremities: no deformity, no trauma Neurological: oriented x 4, LOC appropriate for age, CN II-XII intact, motor strength equal & normal bilaterally, speech normal Assessment/Plan 1. Right otitis media (H66.91: Otitis media, unspecified, right ear) right TM and canal are red. both TM are full of clear fluid Ordered: amoxicillin-clavulan ate, = 1 tab(s), Oral, q12hr, X 7 day(s), # 14 tab(s), Refills(s) 0, [id number], 157, cm, 07/23/23 12:52:00 EDT, Height/Length Dosing, 82.9, kg, 07/23/23 12:52:00 EDT, Weight Dosing Basic Metabolic Panel 2. Leg cramps (R25.2: Cramp and spasm) left leg getting barbra horse. will check electrolytes. no redness or swelling noted on exam Ordered: amoxicillin-clavulan ate, = 1 tab(s), Oral, q12hr, X 7 day(s), # 14 tab(s), Refills(s) 0, Pharmacy: [facility] #[id number], 157, cm, 07/23/23 12:52:00 EDT, Height/Length Dosing, 82.9, kg, 07/23/23 12:52:00 EDT, Weight Dosing Basic Metabolic Panel 3. Fluid level behind tympanic membrane of both ears (H65.93: Unspecified nonsuppurative otitis media, bilateral) SHELDON TM full of clear fluid. will give kenalog in office today. pt encouraged to take daily allergy medication for 2 weeks. or to get sudafed OTC. Ordered: amoxicillin-clavulan ate, = 1 tab(s), Oral, q12hr, X 7 day(s), # 14 tab(s), Refills(s) 0, Pharmacy: [id number], 157, cm, 07/23/23 12:52:00 EDT, Height/Length Dosing, 82.9, kg, 07/23/23 12:52:00 EDT, Weight Dosing 4. BMI 33.0-33.9,adult (Z68.33: Body mass index [BMI] 33.0-33.9, adult) BMI education complete Ordered: amoxicillin-clavulan ate, = 1 tab(s), Oral, q12hr, X 7 day(s), # 14 tab(s), Refills(s) 0, [id number], cm, 07/23/23 12:52:00 EDT, Height/Length Dosing, 82.9, kg, 07/23/23 12:52:00 EDT, Weight Dosing Basic Metabolic Panel 5. Non-smoker (Z78.9: Other specified health status) continue not smoking Ordered: amoxicillin-clavulan ate, = 1 tab(s), Oral, q12hr, X 7 day(s), # 14 tab(s), Refills(s) 0, [id number] 157, cm, 07/23/23 12:52:00 EDT, Height/Length Dosing, 82.9, kg, 07/23/23 12:52:00 EDT, Weight Dosing Basic Metabolic Panel Orders: ciprofloxacin, 500 mg = 1 tab(s), Oral, BID, start at first sign of flare up, # 14 tab(s), Refills(s) 0, Pharmacy: [facility]/pharmacy #[id number], 157, cm, 07/10/23 10:49:00 EDT, Height/Length Dosing, 82.4, kg, 07/10/23 10:49:00 EDT, Weight Dosing methylPREDNISolone, = 1 packet(s), Oral, Once, as directed on package labeling, # 21 tab(s), Refills(s) 0, Pharmacy: [facility]/pharmacy #[id number], 157, cm, 07/10/23 10:49:00 EDT, Height/Length Dosing, 82.4, kg, 07/10/23 10:49:00 EDT, Weight Dosing Follow-up No qualifying data available Problem List/Past Medical History Ongoing Abdominal pain Anemia Bronchitis Cough Daytime sleepiness Diverticulitis Dysuria Feeling of incomplete bladder emptying Fluid level behind tympanic membrane of both ears Hematuria Leg cramps Purulent postnasal drainage Right otitis media Sinusitis Situational anxiety Skin texture changes Snoring Urethral stricture Urinary urgency UTI (urinary tract infection) UTI due to Klebsiella species Vaginal atrophy Historical No qualifying data Procedure/Surgical History Cystoscopy (09/12/2022), Appendectomy, Colonoscopy, Hernia, Hysterectomy. Medications aspirin, 81 mg, Daily Augmentin 875 mg oral tablet, 1 tab(s), Oral, q12hr Chondroitin-Glucosam ine, 1 cap(s), Oral, Daily Estrace 0.1 mg/g Cream, See Instructions, 6 refills Fish Oil, Oral levothyroxine 100 mcg (0.1 mg) Tab, 100 mcg= 1 tab(s), Oral, Daily, 1 refills loratadine 10 mg Tab, 10 mg= 1 tab(s), Oral, Daily Tylenol Extra Strength PM oral tablet, 1 tab(s), Oral, Once a day (at bedtime) Vitamin C, Daily Xanax 0.25 mg Tab, 0.25 mg= 1 tab(s), Oral, TID, PRN Allergies Ambien (Viol (more content not included)... Normal [facility] Comment on above: Result Comment: Elec tronically Signed By: Sharlene Correa\.br\Date and Time Signed: 07/23/23 13:17 EDT eGFRon 07-23-2023 eGFR 92 mL/min/1.73 m2 Normal >=59 [facility] Comment on above: Order Comment: Order added by Discern Expert. Performed By: #### 1 [id number], [id number] ####[facility] [address] [place] [address] Ambulatory Visit Summaryon 0 07-10-2023 Ambulatory Visit Summary FELISHA MONTANO :1950 Visit Date:07/10/2023 Ambulatory Visit Instructions Your Diagnosis Diverticulitis Purulent postnasal drainage Fluid level behind tympanic membrane of both ears BMI 33.0-33.9,adult Non-smoker Your Care Team Attending Physician - Sharlene Correa Primary Care Physician - Sharlene Correa This Is Your Medications List acetaminophen-diphen hydrAMINE (Tylenol Extra Strength PM oral tablet) alprazolam (Xanax 0.25 mg Tab) ascorbic acid (Vitamin C) aspirin chondroitin-glucosam ine (Chondroitin-Glucosa mine) estradiol topical (Estrace 0.1 mg/g Cream) levothyroxine (levothyroxine 100 mcg (0.1 mg) Tab) loratadine (loratadine 10 mg Tab) omega-3 polyunsaturated fatty acids (Fish Oil) Procedures Performed Cystoscopy (09/12/2022), Appendectomy, Colonoscopy, Hernia, Hysterectomy. Discharge Vitals Temperature (Tympanic) 36.5 ?C Heart Rate (Peripheral) 88 Respiratory Rate 18 Blood Pressure 138/76 Height 157.0 cm Height 62 in Weight 82.4 kg Weight 181.28 lb BMI 33.43 What to do next Scheduled Follow-Up Appointments Sunday 2:20 PM EDT With: YOLI CRAIN PA-C Where: [facility] [place] [id number] \.br\ Medications\.br\ What How Much When Why Instructions\.br\ Unchanged acetaminophen-diphen hydrAMINE (Tylenol Extra Strength PM oral tablet) 1 Tablets By Mouth Once a day (at bedtime)\.br\ Unchanged alprazolam (Xanax 0.25 mg Tab) 1 Tablets By Mouth 3 times a day as needed for Anxiety Situational anxiety Sinusitis Bronchitis Daytime sleepiness Snoring Non-smoker BMI 32.0-32.9,adult\.br\ Unchanged ascorbic acid (Vitamin C) Every day\.br\ Unchanged aspirin 81 Milligram Every day\.br\ Unchanged chondroitin-glucosam ine (Chondroitin-Glucosa mine) 1 Capsules By Mouth Every day\.br\ Unchanged estradiol topical (Estrace 0.1 mg/ g Cream) See instructions Apply pea-sized amount around the opening of the urethra and vagina 3 times per week at night for one month then 2 times per week after for maintenance. \.br\ Unchanged levothyroxine (levothyroxine 100 mcg (0.1 mg) Tab) 1 Tablets By Mouth Every day\.br\ Unchanged loratadine (loratadine 10 mg Tab) 1 Tablets By Mouth Every day\.br\ Unchanged omega-3 polyunsaturated fatty acids (Fish Oil) By Mouth\.br\ Allergies\.br\ Ambien (Violent acts towards others)\.br\ Lunesta (Dreams)\.br\ codeine (Unknown)\.br\ Problems\.br\ Ongoing - Any problem that you are currently receiving treatment for.\.br\ Abdominal pain\.br\ Anemia\.br\ Bronchitis\.br\ Cough\.br\ Daytime sleepiness\.br\ Diverticulitis\.br\ Dysuria\.br\ Feeling of incomplete bladder emptying\.br\ Fluid level behind tympanic membrane of both ears\.br\ Hematuria\.br\ Purulent postnasal drainage\.br\ Sinusitis\.br\ Situational anxiety\.br\ Skin texture changes\.br\ Snoring\.br\ Urethral stricture\.br\ Urinary urgency\.br\ UTI (urinary tract infection)\.br\ UTI due to Klebsiella species\.br\ Vaginal atrophy\.br\ Patient Survey\.br\ You may receive a survey via text or e-mail asking about your office visit. Please share your experience with us by completing your survey. We appreciate your feedback and thank you for choosing us for your care.\.br\ \.br\ [facility] Auth for Release of Medical Recordson 07-10-2023 Auth for Release of Medical Records [id number] #1.00TIFF Normal [facility] Family Medicine Office/Clini c Noteon 07-10-2023 Family Medicine Office/Clinic Note HPI Staff Felisha is a 72 year old female presenting to TCM follow up TCM: Hospital: [facility]( records requested 07/10/23) Admission date: 06/28/23 Discharge date: 07/01/23 Symptoms the patient presented with: abdominal pain LLQ, nausea, emesis Dx: Diverticulitis lower bowel Current concerns: Pt states she feel good now Pt states she did was up today with headache top of head and behind her eyes, slightly congested. hasn't taken anything OTC, Denies body aches/fever/chills/s ore throat History of Present Illness pt presents today for TCM follow up. Was shipped to [facility] for diverticulitis Review of Systems PHQ Score Initial Depression Screen Score: 0 SCORE Physical Exam Vitals & Measurements T: 36.5 ?C(Tympanic) HR: 88(Peripheral) RR: 18 BP: 138/76 SpO2: 97% HT: 62 in HT: 157.0 cm WT: 82.4 kg WT: 181.28 lb BMI: 33.43 General: alert, no acute distress ENMT: oral mucosa moist, no pharyngeal erythema or exudate Cardiovascular: regular rate and rhythm, normal peripheral perfusion Respiratory: Lungs CTA, respirations non labored Extremities: no deformity, no trauma Neurological: oriented x 4, LOC appropriate for age, CN II-XII intact, motor strength equal & normal bilaterally, speech normal Assessment/Plan 1. Diverticulitis (K57.92: Diverticulitis of intestine, part unspecified, without perforation or abscess without bleeding) pt was shipped to [facility] for what they thought was bowel obstruction but it was diverticulitis. pt was given IV antibiotics. was discharge. pt is feeling much better now. doses of cipro and flagyl sent to pharmacy [facility] to have on hand for when she starts to feel another flare up starting. she has multiple follow up appointments in [facility]. but she is unable to find her paaperwork. she is going to call main number to see if they can tell her when and where her appointments are. RTC as needed Ordered: [facility] 14 day disch [id number] 2. Fluid level behind tympanic membrane of both ears (H65.93: Unspecified nonsuppurative otitis media, bilateral) SHELDON TM full of clear fluid. pt has post nasal drainage and tickle in throat. will order medrol dose pack 3. BMI 33.0-33.9,adult (Z68.33: Body mass index [BMI] 33.0-33.9, adult) BMI education complete 4. Non-smoker (Z78.9: Other specified health status) continue not smoking Orders: ciprofloxacin, 500 mg = 1 tab(s), Oral, BID, start at first sign of flare up, # 14 tab(s), Refills(s) 0, Pharmacy: [facility]/pharmacy #[id number], 157, cm, 07/10/23 10:49:00 EDT, Height/Length Dosing, 82.4, kg, 07/10/23 10:49:00 EDT, Weight Dosing levothyroxine, 100 mcg = 1 tab(s), Oral, Daily, # 90 tab(s), Refills(s) 1, [id number], cm, 05/23/23 10:42:00 EST, Height/Length Dosing, 77.5, kg, 05/23/23 10:42:00 EST, Weight Dosing methylPREDNISolone, = 1 packet(s), Oral, Once, as directed on package labeling, # 21 tab(s), Refills(s) 0, [id number] 157, cm, 07/10/23 10:49:00 EDT, Height/Length Dosing, 82.4, kg, 07/10/23 10:49:00 EDT, Weight Dosing metronidazole, 500 mg = 1 tab(s), Oral, q8hr, take at first sign of flare up, X 7 day(s), # 21 tab(s), Refills(s) 0, [id number] 157, cm, 07/10/23 10:49:00 EDT, Height/Length Dosing, 82.4, kg, 07/10/23 10:49:00 EDT, Weight Dosing Follow-up No qualifying data available Problem List/Past Medical History Ongoing Abdominal pain Anemia Bronchitis Cough Daytime sleepiness Diverticulitis Dysuria Feeling of incomplete bladder emptying Fluid level behind tympanic membrane of both ears Hematuria Purulent postnasal drainage Sinusitis Situational anxiety Skin texture changes Snoring Urethral stricture Urinary urgency UTI (urinary tract infection) UTI due to Klebsiella species Vaginal atrophy Historical No qualifying data Procedure/Surgical History Cystoscopy (09/12/2022), Appendectomy, Colonoscopy, Hernia, Hysterectomy. Medications aspirin, 81 mg, Daily Chondroitin-Glucosam ine, 1 cap(s), Oral, Daily ciprofloxacin 500 mg Tab, 500 mg= 1 tab(s), Oral, BID Estrace 0.1 mg/g Cream, See Instructions, 6 refills Fish Oil, Oral levothyroxine 100 mcg (0.1 mg) Tab, 100 mcg= 1 tab(s), Oral, Daily, 1 refills loratadine 10 mg Tab, 10 mg= 1 tab(s), Oral, Daily methylPREDNISolone 4 mg tab dosepak, 1 packet(s), Oral, Once MetroNIDAZOLE 500 mg Tab, 500 mg= 1 tab(s), Oral, q8hr Tylenol Extra Strength PM oral tablet, 1 tab(s), Oral, Once a day (at bedtime) Vitamin C, Daily Xanax 0.25 mg Tab, 0.25 mg= 1 tab(s), Oral, TID, PRN Allergies Ambien (Violent acts towards others) Lunesta (Dreams) codeine (Unknown) Social History Alcohol Wine, 1-2 times per year, Household alcohol concerns: No., 12/05/2022 Tobacco Never (less than 100 in lifetime) Tobacco Use:. Never Smokeless Tobacco Use:. Household tobacco concerns: No. Yes, 07/10/2023 Family History Arthritis: Mother. High blood pressure: Mother. Multiple sclerosis: Father. Primary malignant (more content not included)... [facility] Comment on above: Result Comment: Elec tronically Signed By: Sharlene Correa\.br\Date and Time Signed: 07/10/23 12:13 EDT Outside [facility] Correspo ndenceon 07-10-2023 Outside [facility] Correspondence [id number] #1.00TIFF [facility] ED Note-Physicianon 06-19-19 ED Note-Physician [id number] #1.00TIFF [facility] RAD - CT Reporton 06-19-2023 RAD - CT Report [id number] #1.00TIFF [facility] RAD - MISCon 06-19-2023 RAD - MISC [id number] #1.00TIFF [facility] 36on 06-18-2023 36 Called and LMOM encouraging patient to call and make a HFU appt with Dr. Ruffin. [id number] [facility] 36 Per Anna Patino RN via [employer] chat Patient is discharging home today after small bowel obstruction. Needs hospital follow up in 1-2 weeks w/General kendra [facility] BASIC METABOLIC PANELon 05-25 Anion gap [Moles/Vol] 8 mmol/L Normal 7-20 [facility] Comment on above: Performed By: #### L [id number] #### [facility] ([facility]) [address] [place] [address] Calcium [Mass/Vol] 8.6 mg/dL Normal 8.6-10.3 [facility] Comment on above: Performed By: #### L [id number] #### [facility] ([facility]) [address] [place] [address] Chloride [Moles/Vol] 105 mmol/L Normal 98-107 [facility] Comment on above: Performed By: #### L [id number] #### [facility] ([facility]) [address] [place] [address] CO2 [Moles/Vol] 28 mmol/L Normal 21-31 [facility] Comment on above: Performed By: #### L [id number] #### [facility] ([facility]) [address] [place] [address] Creatinine [Mass/Vol] 0.72 mg/dL Normal 0.60-1.20 [facility] Comment on above: Performed By: #### L [id number] #### [facility] ([facility]) [address] [place] [address] GLOMERULAR FILTRATION RATE ML/MIN/1.73 SQ M.PREDICTED 89.3 mL/min/1.73m*2 Normal >60.0 [facility] Comment on above: Result Comment: The [facility]???s estimated glomerular filtration rate (eGFR) will no longer include consideration of race in its calculation. The National Kidney Foundation???s eGFR Task Force developed new recommendations for the estimation of the glomerular filtration rate in the [place] They recommend immediate implementation of the new equation refit without the race variable in all laboratories because the calculation does not include race. In addition to not including race in the calculation and reporting, it included diversity in its development, and has acceptable performance characteristics and potential consequences that do not disproportionately affect any one group of individuals. Performed By: #### L [id number] #### [facility] ([facility]) [address] [place], [place] [address] Glucose [Mass/Vol] 97 mg/dL Normal 70-100 [facility] Comment on above: Performed By: #### L [id number] #### [facility] ([facility]) [address] [place] [address] Potassium [Moles/Vol] 3.4 mmol/L Low 3.5-5.1 [facility] Comment on above: Performed By: #### L [id number] #### [facility] ([facility]) [address] [place] [address] Sodium [Moles/Vol] 138 mmol/L Normal 136-145 [facility] Comment on above: Performed By: #### L [id number] #### [facility] ([facility]) [address] [place] [address] Urea nitrogen [Mass/Vol] 7 mg/dL Normal 7-25 [facility] Comment on above: Performed By: #### L [id number] #### [facility] ([facility]) [address] [place] [address] UREA NITROGEN/CREATININ E (MASS RATIO) IN SER/PLAS 9.7 Normal [facility] Comment on above: Performed By: #### L [id number] #### [facility] ([facility]) [address] [place] [address] CBCon 06-17-2023 Erythrocyte distribution width (RBC) [Ratio] 12.3 % Normal 11.5-15.0 [facility] Comment on above: Performed By: #### L [id number] #### [facility] ([facility]) [address] [place] [address] ERYTHROCYTE MEAN CORPUSCULAR HEMOGLOBIN CONCENTRATION (G/DL) BY AUTOMATED 33.5 g/dL Normal 32.0-35.0 [facility] Comment on above: Performed By: #### L [id number] #### [facility] ([facility]) [address] [place] [address] Hematocrit (Bld) [Volume fraction] 35.8 % Low 36.0-48.0 [facility] Comment on above: Performed By: #### L [id number] #### [facility] ([facility]) [address] [place] [address] Hemoglobin (Bld) [Mass/Vol] 12.0 g/dL Normal 12.0-15.0 [facility] Comment on above: Performed By: #### L [id number] #### [facility] ([facility]) [address] [place] [address] MCH (RBC) [Entitic mass] 29.0 pg Normal 27.0-33.0 [facility] Comment on above: Performed By: #### L [id number] #### [facility] ([facility]) [address] [place] [address] MCV (RBC) [Entitic vol] 86.5 fL Normal 82.0-98.0 [facility] Comment on above: Performed By: #### L [id number] #### [facility] ([facility]) [address] [place] [address] PLATELETS (10*3/UL) IN BLOOD AUTOMATED COUNT 222 10*3/uL Normal 150-400 [facility] Comment on above: Performed By: #### L [id number] #### [facility] ([facility]) [address] [place] [address] RBC (Bld) [#/Vol] 4.14 10*6/uL Normal 3.80-5.00 [facility] Comment on above: Performed By: #### L [id number] #### [facility] ([facility]) [address] [place] [address] WBC (Bld) [#/Vol] 4.70 10*3/uL Normal 4.00-10.60 [facility] Comment on above: Performed By: #### L [id number] #### [facility] ([facility]) [address] [place] [address] DSon 06-17-2023 DS Admission Admitted 06/15/2023 for Small bowel obstruction Discharge Diagnosis Acute, uncomplicated diverticulitis Discharge Disposition Home or Self Care (01) Discharge Medications Your medication list START taking these medications Instructions Last Dose Given Next Dose Due amoxicillin-pot clavulanate 875-125 mg tablet Commonly known as: Augmentin Take 1 tablet by mouth in the morning and at bedtime for 19 doses. CONTINUE taking these medications Instructions Last Dose Given Next Dose Due ALPRAZolam 0.25 mg tablet Commonly known as: Xanax ASCORBIC ACID (VITAMIN C) ORAL aspirin 81 mg EC tablet coenzyme Q-10 100 mg capsule FISH OIL ORAL glucosamine-chondroi tin 500-400 mg tablet levothyroxine 100 mcg tablet Commonly known as: Synthroid, Levoxyl LUTEIN-ZEAXANTHIN ORAL Where to Get Your Medications You can get these medications from any pharmacy Bring a paper prescription for each of these medications amoxicillin-pot clavulanate 875-125 mg tablet Activity Normal activity as tolerated Diet Continue on the same type of diet and foods as you were eating before your admission. Drink plenty of water. Allergies Codeine Hospital Course 72 year old female presented to outside hospital with abdominal pain, nausea, and emesis. Reportedly imaging from outside hospital was concerning for partial small bowel obstruction. She was transferred to [facility] for higher level of care. Upon arrival a CT abdomen with oral and IV contrast did not reveal bowel obstruction but instead demonstrated acute uncomplicated descending colonic diverticulitis. Patient was managed with IV antibiotics and she steadily improved. Diet was advanced as tolerated and she had complete resolution of abdominal pain. She was deemed fit for discharge home on 06/17/23. Pertinent Physical Exam At Time of Discharge Physical Exam Constitutional: General: She is not in acute distress. HENT: Head: Normocephalic and atraumatic. Eyes: Extraocular Movements: Extraocular movements intact. Conjunctiva/sclera: Conjunctivae normal. Cardiovascular: Rate and Rhythm: Normal rate and regular rhythm. Pulses: Normal pulses. Pulmonary: Effort: Pulmonary effort is normal. No respiratory distress. Abdominal: General: Abdomen is flat. There is no distension. Palpations: Abdomen is soft. Tenderness: There is no abdominal tenderness. There is no guarding. Musculoskeletal: General: No deformity or signs of injury. Cervical back: Neck supple. No tenderness. Skin: General: Skin is dry. Capillary Refill: Capillary refill takes less than 2 seconds. Neurological: General: No focal deficit present. Mental Status: She is alert and oriented to person, place, and time. Psychiatric: Mood and Affect: Mood normal. Behavior: Behavior normal. Lab Results Labs Reviewed BASIC METABOLIC PANEL - Abnormal Result Value Sodium 138 Potassium 3.5 Chloride 104 CO2 29 BUN 9 Creatinine 0.65 Glucose 97 Calcium 8.3 (*) Anion Gap 9 eGFR 94.1 BUN/Creatinine Ratio 13.8 MAGNESIUM - Abnormal Magnesium 1.8 (*) CBC - Abnormal Auto WBC 4.70 RBC 4.14 Hemoglobin 12.0 Hematocrit 35.8 (*) MCV 86.5 MCH 29.0 MCHC 33.5 RDW 12.3 Platelets 222 BASIC METABOLIC PANEL - Abnormal Sodium 138 Potassium 3.4 (*) Chloride 105 CO2 28 BUN 7 Creatinine 0.72 Glucose 97 Calcium 8.6 Anion Gap 8 eGFR 89.3 BUN/Creatinine Ratio 9.7 LACTIC ACID WITH 4 HOUR REFLEX - Normal Lactate 1.4 CBC - Normal Auto WBC 7.17 RBC 4.54 Hemoglobin 13.2 Hematocrit 39.6 MCV 87.2 MCH 29.1 MCHC 33.3 RDW 12.9 Platelets 263 MAGNESIUM - Normal Magnesium 1.9 PHOSPHORUS - Normal Phosphorus 3.7 CBC - Normal Auto WBC 5.89 RBC 4.17 Hemoglobin 12.1 Hematocrit 36.5 MCV 87.5 MCH 29.0 MCHC 33.2 RDW 12.7 Platelets 238 PHOSPHORUS - Normal Phosphorus 3.6 MAGNESIUM - Normal Magnesium 1.9 PHOSPHORUS - Normal Phosphorus 3.8 COMPREHENSIVE METABOLIC PANEL Sodium 140 Potassium 3.8 Chloride 104 CO2 30 Anion Gap 10 BUN 13 Creatinine 0.75 BUN/Creatinine Ratio 17.3 Glucose 87 Calcium 8.8 AST 17 ALT (SGPT) 21 Alkaline Phosphatase 55 Total Protein 6.5 Albumin 4.1 Total Bilirubin 0.5 eGFR 85.1 Issues Requiring Follow-Up Planning of future colonoscopy Outpatient Follow-Up No future appointments. Test Results Pending At Discharge Normal [facility] MAGNESIUMon 06-17-2023 Magnesium [Mass/Vol] 1.9 mg/dL Normal 1.9-2.7 [facility] Comment on above: Performed By: #### L [id number] #### [facility] ([facility]) [address] [place] [address] PHOSPHORUSon 06-17-2023 Magnesium [Mass/Vol] 3.8 mg/dL Normal 2.5-5.0 [facility] Comment on above: Performed By: #### L [id number] #### [facility] ([facility]) [address] [place] [address] 30on 06-16-2023 30 Problem: Pain - Adult Goal: Verbalizes/displays adequate comfort level or baseline comfort level Outcome: Progressing Problem: Safety - Adult Goal: Free from fall injury Outcome: Progressing Problem: Discharge Planning Goal: Discharge to home or other facility with appropriate resources Outcome: Progressing Problem: Chronic Conditions and Co-morbidities Goal: Patient's chronic conditions and co-morbidity symptoms are monitored and maintained or improved Outcome: Progressing Problem: Neurosensory - Adult Goal: Achieves stable or improved neurological status Outcome: Progressing Flowsheets (Taken 06/16/20231929) Achieves stable or improved neurological status: Assess for and report changes in neurological status Goal: Achieves maximal functionality and self care Outcome: Progressing Problem: Respiratory - Adult Goal: Achieves optimal ventilation and oxygenation Outcome: Progressing Problem: Cardiovascular - Adult Goal: Maintains optimal cardiac output and hemodynamic stability Outcome: Progressing Goal: Absence of cardiac dysrhythmias or at baseline Outcome: Progressing Problem: Skin/Tissue Integrity - Adult Goal: Skin integrity remains intact Outcome: Progressing Goal: Oral mucous membranes remain intact Outcome: Progressing Problem: Musculoskeletal - Adult Goal: Return mobility to safest level of function Outcome: Progressing Flowsheets (Taken 06/16/20231929) Return mobility to safest level of function: Assess patient stability and activity tolerance for standing, transferring and ambulating with or without assistive devices Goal: Return ADL status to a safe level of function Outcome: Progressing Problem: Gastrointestinal - Adult Goal: Minimal or absence of nausea and vomiting Outcome: Progressing Goal: Maintains or returns to baseline bowel function Outcome: Progressing Goal: Maintains adequate nutritional intake Outcome: Progressing Problem: Genitourinary - Adult Goal: Absence of urinary retention Outcome: Progressing Problem: Infection - Adult Goal: Absence of infection at discharge Outcome: Progressing Goal: Absence of infection during hospitalization Outcome: Progressing Problem: Metabolic/Fluid and Electrolytes - Adult Goal: Electrolytes maintained within normal limits Outcome: Progressing Goal: Hemodynamic stability and optimal renal function maintained Outcome: Progressing Problem: Hematologic - Adult Goal: Maintains hematologic stability Outcome: Progressing Problem: Pain - Adult Goal: Verbalizes/displays adequate comfort level or baseline comfort level Outcome: Progressing Problem: Safety - Adult Goal: Free from fall injury Outcome: Progressing Problem: Discharge Planning Goal: Discharge to home or other facility with appropriate resources Outcome: Progressing Problem: Chronic Conditions and Co-morbidities Goal: Patient's chronic conditions and co-morbidity symptoms are monitored and maintained or improved Outcome: Progressing Problem: Neurosensory - Adult Goal: Achieves stable or improved neurological status Outcome: Progressing Flowsheets (Taken 06/16/20231929) Achieves stable or improved neurological status: Assess for and report changes in neurological status Goal: Achieves maximal functionality and self care Outcome: Progressing Problem: Respiratory - Adult Goal: Achieves optimal ventilation and oxygenation Outcome: Progressing Problem: Cardiovascular - Adult Goal: Maintains optimal cardiac output and hemodynamic stability Outcome: Progressing Goal: Absence of cardiac dysrhythmias or at baseline Outcome: Progressing Problem: Skin/Tissue Integrity - Adult Goal: Skin integrity remains intact Outcome: Progressing Goal: Oral mucous membranes remain intact Outcome: Progressing Problem: Musculoskeletal - Adult Goal: Return mobility to safest level of function Outcome: Progressing Flowsheets (Taken 06/16/20231929) Return mobility to safest level of function: Assess patient stability and activity tolerance for standing, transferring and ambulating with or without assistive devices Goal: Return ADL status to a safe level of function Outcome: Progressing Problem: Gastrointestinal - Adult Goal: Minimal or absence of nausea and vomiting Outcome: Progressing Goal: Maintains or returns to baseline bowel function Outcome: Progressing Goal: Maintains adequate nutritional intake Outcome: Progressing Problem: Genitourinary - Adult Goal: Absence of urinary retention Outcome: Progressing Problem: Infection - Adult Goal: Absence of infection at discharge Outcome: Progressing Goal: Absence of infection during hospitalization Outcome: Progressing Problem: Metabolic/Fluid and Electrolytes - Adult Goal: Electrolytes maintained within normal limits Outcome: Progressing Goal: Hemodynamic stability and optimal renal function maintained Outcome: Progressing Problem: H (more content not included)... Normal [facility] BASIC METABOLIC PANELon - Anion gap [Moles/Vol] 9 mmol/L Normal - [facility] Comment on above: Performed By: #### L [id number] #### [facility] ([facility]) [address] [place] [address] Calcium [Mass/Vol] 8.3 mg/dL Low 8.6-10.3 [facility] Comment on above: Performed By: #### L [id number] #### [facility] ([facility]) [address] [place] [address] Chloride [Moles/Vol] 104 mmol/L Normal 98-107 [facility] Comment on above: Performed By: #### L [id number] #### [facility] ([facility]) [address] [place] [address] CO2 [Moles/Vol] 29 mmol/L Normal 21-31 [facility] Comment on above: Performed By: #### L [id number] #### [facility] ([facility]) [address] [place] [address] Creatinine [Mass/Vol] 0.65 mg/dL Normal 0.60-1.20 [facility] Comment on above: Performed By: #### L [id number] #### [facility] ([facility]) [address] [place] [address] GLOMERULAR FILTRATION RATE ML/MIN/1.73 SQ M.PREDICTED 94.1 mL/min/1.73m*2 Normal >60.0 [facility] Comment on above: Result Comment: The [facility]???s estimated glomerular filtration rate (eGFR) will no longer include consideration of race in its calculation. The National Kidney Foundation???s eGFR Task Force developed new recommendations for the estimation of the glomerular filtration rate in the [place] They recommend immediate implementation of the new equation refit without the race variable in all laboratories because the calculation does not include race. In addition to not including race in the calculation and reporting, it included diversity in its development, and has acceptable performance characteristics and potential consequences that do not disproportionately affect any one group of individuals. Performed By: #### L [id number] #### [facility] ([facility]) [address] [place] [address] Glucose [Mass/Vol] 97 mg/dL Normal 70-100 [facility] Comment on above: Performed By: #### L [id number] #### [facility] ([facility]) [address] [place] [address] Potassium [Moles/Vol] 3.5 mmol/L Normal 3.5-5.1 [facility] Comment on above: Performed By: #### L [id number] #### [facility] ([facility]) [address] [place] [address] Sodium [Moles/Vol] 138 mmol/L Normal 136-145 [facility] Comment on above: Performed By: #### L [id number] #### [facility] ([facility]) [address] [place] [address] Urea nitrogen [Mass/Vol] 9 mg/dL Normal 7-25 [facility] Comment on above: Performed By: #### L [id number] #### [facility] ([facility]) [address] [place] [address] UREA NITROGEN/CREATININ E (MASS RATIO) IN SER/PLAS 13.8 Normal [facility] Comment on above: Performed By: #### L [id number] #### [facility] ([facility]) [address] [place] [address] CBCon 06-16-2023 Erythrocyte distribution width (RBC) [Ratio] 12.7 % Normal 11.5-15.0 [facility] Comment on above: Performed By: #### L [id number] #### [facility] ([facility]) [address] [place] [address] ERYTHROCYTE MEAN CORPUSCULAR HEMOGLOBIN CONCENTRATION (G/DL) BY AUTOMATED 33.2 g/dL Normal 32.0-35.0 [facility] Comment on above: Performed By: #### L [id number] #### [facility] ([facility]) [address] [place] [address] Hematocrit (Bld) [Volume fraction] 36.5 % Normal 36.0-48.0 [facility] Comment on above: Performed By: #### L [id number] #### [facility] ([facility]) [address] [place] [address] Hemoglobin (Bld) [Mass/Vol] 12.1 g/dL Normal 12.0-15.0 [facility] Comment on above: Performed By: #### L [id number] #### [facility] ([facility]) [address] [place] [address] MCH (RBC) [Entitic mass] 29.0 pg Normal 27.0-33.0 [facility] Comment on above: Performed By: #### L [id number] #### [facility] ([facility]) [address] [place] [address] MCV (RBC) [Entitic vol] 87.5 fL Normal 82.0-98.0 [facility] Comment on above: Performed By: #### L [id number] #### [facility] ([facility]) [address] [address] PLATELETS (10*3/UL) IN BLOOD AUTOMATED COUNT 238 10*3/uL Normal 150-400 [facility] Comment on above: Performed By: #### L [id number] #### [facility] ([facility]) [address] [place] [address] RBC (Bld) [#/Vol] 4.17 10*6/uL Normal 3.80-5.00 [facility] Comment on above: Performed By: #### L [id number] #### [facility] ([facility]) [address] [place] [address] WBC (Bld) [#/Vol] 5.89 10*3/uL Normal 4.00-10.60 [facility] Comment on above: Performed By: #### L [id number] #### [facility] ([facility]) [address] [facility] [place] [address] MAGNESIUMon 06-16-2023 Magnesium [Mass/Vol] 1.8 mg/dL Low 1.9-2.7 [facility] Comment on above: Performed By: #### L [id number] #### [facility] ([facility]) [address] [place] [address] NURSNOTEon 06-16-2023 NURSNOTE Pt is tolerating sips & ice chips at this time. RN updated GS. See new orders. Pt & family are aware. Normal [facility] PHOSPHORUSon 06-16-2023 Magnesium [Mass/Vol] 3.6 mg/dL Normal 2.5-5.0 [facility] Comment on above: Performed By: #### L [id number] #### [facility] ([facility]) [address] [place] [address] 30on 06-15-2023 30 The patient is Moderately Stable - Low risk of patient condition declining or worsening The patient's goals for the shift include The clinical goals for the shift include Problem: Pain - Adult Goal: Verbalizes/displays adequate comfort level or baseline comfort level Outcome: Not Progressing Problem: Safety - Adult Goal: Free from fall injury Outcome: Not Progressing Problem: Discharge Planning Goal: Discharge to home or other facility with appropriate resources Outcome: Not Progressing Problem: Chronic Conditions and Co-morbidities Goal: Patient's chronic conditions and co-morbidity symptoms are monitored and maintained or improved Outcome: Not Progressing Normal [facility] CBCon 06-15-2023 Erythrocyte distribution width (RBC) [Ratio] 12.9 % Normal 11.5-15.0 [facility] Comment on above: Performed By: #### L [id number] #### [facility] ([facility]) [address] [place] [address] ERYTHROCYTE MEAN CORPUSCULAR HEMOGLOBIN CONCENTRATION (G/DL) BY AUTOMATED 33.3 g/dL Normal 32.0-35.0 [facility] Comment on above: Performed By: #### L [id number] #### [facility] ([facility]) [address] [facility] [place] [address] Hematocrit (Bld) [Volume fraction] 39.6 % Normal 36.0-48.0 [facility] Comment on above: Performed By: #### L [id number] #### [facility] ([facility]) [address] [place] [address] Hemoglobin (Bld) [Mass/Vol] 13.2 g/dL Normal 12.0-15.0 [facility] Comment on above: Performed By: #### L [id number] #### [facility] ([facility]) [address] [place] [address] MCH (RBC) [Entitic mass] 29.1 pg Normal 27.0-33.0 [facility] Comment on above: Performed By: #### L [id number] #### [facility] ([facility]) [address] [address] MCV (RBC) [Entitic vol] 87.2 fL Normal 82.0-98.0 [facility] Comment on above: Performed By: #### L [id number] #### [facility] ([facility]) [address] [place] [address] PLATELETS (10*3/UL) IN BLOOD AUTOMATED COUNT 263 10*3/uL Normal 150-400 [facility] Comment on above: Performed By: #### L [id number] #### [facility] ([facility]) [address] [place] [address] RBC (Bld) [#/Vol] 4.54 10*6/uL Normal 3.80-5.00 [facility] Comment on above: Performed By: #### L [id number] #### [facility] ([facility]) [address] [place] [address] WBC (Bld) [#/Vol] 7.17 10*3/uL Normal 4.00-10.60 [facility] Comment on above: Performed By: #### L [id number] #### [facility] ([facility]) [address] [place] [address] COMPREHENSIVE METABOLIC PANE Migue 06-15-2023 Albumin [Mass/Vol] 4.1 g/dL Normal 3.5-5.7 [facility] Comment on above: Performed By: #### L [id number] #### [facility] ([facility]) [address] [place] [address] ALP [Catalytic activity/Vol] 55 U/L Normal 34-104 [facility] Comment on above: Performed By: #### L [id number] #### [facility] ([facility]) [address] [place] [address] ALT [Catalytic activity/Vol] 21 U/L Normal 7-52 [facility] Comment on above: Performed By: #### L [id number] #### [facility] ([facility]) [address] [place] [address] Anion gap [Moles/Vol] 10 mmol/L Normal 7-20 [facility] Comment on above: Performed By: #### L [id number] #### [facility] ([facility]) [address] [place] [address] AST [Catalytic activity/Vol] 17 U/L Normal 13-39 [facility] Comment on above: Performed By: #### L [id number] #### [facility] ([facility]) [address] [place] [address] Bilirubin [Mass/Vol] 0.5 mg/dL Normal 0.3-1.0 [facility] Comment on above: Performed By: #### L [id number] #### [facility] ([facility]) [address] [place] [address] Calcium [Mass/Vol] 8.8 mg/dL Normal 8.6-10.3 [facility] Comment on above: Performed By: #### L [id number] #### [facility] ([facility]) [address] [place] [address] Chloride [Moles/Vol] 104 mmol/L Normal 98-107 [facility] Comment on above: Performed By: #### L [id number] #### [facility] ([facility]) [address] [place] [address] CO2 [Moles/Vol] 30 mmol/L Normal 21-31 [facility] Comment on above: Performed By: #### L [id number] #### [facility] ([facility]) [address] [place] [address] Creatinine [Mass/Vol] 0.75 mg/dL Normal 0.60-1.20 [facility] Comment on above: Performed By: #### L [id number] #### [facility] ([facility]) [address] [place] [address] GLOMERULAR FILTRATION RATE ML/MIN/1.73 SQ M.PREDICTED 85.1 mL/min/1.73m*2 Normal >60.0 [facility] Comment on above: Result Comment: The [facility]???s estimated glomerular filtration rate (eGFR) will no longer include consideration of race in its calculation. The National Kidney Foundation???s eGFR Task Force developed new recommendations for the estimation of the glomerular filtration rate in the [place] They recommend immediate implementation of the new equation refit without the race variable in all laboratories because the calculation does not include race. In addition to not including race in the calculation and reporting, it included diversity in its development, and has acceptable performance characteristics and potential consequences that do not disproportionately affect any one group of individuals. Performed By: #### L [id number] #### [facility] ([facility]) [address] [place] [address] Glucose [Mass/Vol] 87 mg/dL Normal 70-100 [facility] Comment on above: Performed By: #### L [id number] #### [facility] ([facility]) [address] [place] [address] Potassium [Moles/Vol] 3.8 mmol/L Normal 3.5-5.1 [facility] Comment on above: Performed By: #### L [id number] #### [facility] ([facility]) [address] [place] [address] Protein [Mass/Vol] 6.5 g/dL Normal 6.0-8.3 [facility] Comment on above: Performed By: #### L [id number] #### [facility] ([facility]) [address] [place] [address] Sodium [Moles/Vol] 140 mmol/L Normal 136-145 [facility] Comment on above: Performed By: #### L [id number] #### [facility] ([facility]) [address] [place] [address] Urea nitrogen [Mass/Vol] 13 mg/dL Normal 7-25 [facility] Comment on above: Performed By: #### L [id number] #### [facility] ([facility]) [address] [place] [address] UREA NITROGEN/CREATININ E (MASS RATIO) IN SER/PLAS 17.3 Normal [facility] Comment on above: Performed By: #### L [id number] #### [facility] ([facility]) [address] [place] [address] CT ABDOMEN PELVIS W IV CONTR Nolvia 06-15-2023 CT ABDOMEN PELVIS W IV CONTRAST CT ABDOMEN PELVIS W IV CONTRAST 06/16/2023 12:07 AM CLINICAL INDICATIONS: Abdominal pain. Evaluate for SBO. TECHNIQUE: CT abdomen and pelvis with intravenous and oral contrast. Multiplanar reformats were performed. IV Contrast: 100 mL of Omnipaque 350 was injected intravenously. Oral Contrast: 50 mL of Omnipaque administered through the NG tube every 30 minutes over 2 to 3 hours. Protocol: Axial CT images from the lung bases to the pubic symphysis were performed following the uneventful administration of intravenous and oral contrast. All CT scans at this facility use dose modulation, iterative reconstruction, and/or weight based dosing when appropriate to reduce radiation dose to as low as reasonably achievable COMPARISON: 01/30/2019. FINDINGS: Lower chest: Bilateral lower lobe dependent atelectasis. No focal consolidation or pleural effusion. Hepatobiliary, pancreas, and spleen: Diffuse hepatic steatosis. Vicarious excretion of contrast in the gallbladder. No focally enhancing lesions are seen in the liver, spleen, or pancreas. Genitourinary and adrenal glands: The adrenal glands and kidneys are unremarkable. There is a subcentimeter cystic lesion in the right kidney, which is too small to characterize, but lacks aggressive features and therefore requires no follow-up. The uterus is absent. Retroperitoneum and vascular: The abdominal aorta is nonaneurysmal. The IVC is right-sided. No portal venous thrombosis. Chronic left ovarian vein thrombosis. Bowel and mesentery: The enteric tube tip is in the stomach. Oral contrast is seen throughout the small bowel and in the ascending colon. No distended bowel loops are seen. There is diffuse mesenteric edema in the mid abdomen as well as in the region of the distal descending colon. Diverticula and pericolic fat stranding are seen in the lower descending colon. Status post sigmoid colon resection, with left lower quadrant colocolic anastomosis. No free gas or free fluid. Soft tissues and bones: Mid lower abdominal wall diastases containing nondistended small bowel loops. Multilevel degenerative changes of the lumbar spine. IMPRESSION: *Findings of acute uncomplicated distal descending colon diverticulitis with mesenteric edema. No CT evidence of abscess or perforation. *No evidence of bowel obstruction. *Findings of prior sigmoid colon resection. Approved by:Bianca Álvarez 12:56 AM. I, Dalton Orourke,have reviewed the image(s) and agree with the findings in this report. Electronically signed: Dalton Orourke. [facility] Comment on above: Order Comment: Luis nt needs CT A/P with IV and PO contrast HPon 06-15-2023 HP Attestation signed by Davina Pino MD at 06/16/2023 8:48 AM I examined and discussed the patient with the resident. I agree with the above findings and plan of care. Davina Pino Time Spent 25min [facility] HISTORY AND PHYSICAL Reason for Consult: partial SBO History of Present Illness: Felisha Montano is a 72 y.o. female w/ PMH of arthritis, SBO, diverticulitis and umbilical hernia who presented as a transfer from OSH with concern for partial SBO on CT A/P. Patient states that she has had a 24 hr history of lower abdominal which is why she presented to OSH. She had significant nausea and multiple episodes emesis. Patient states that abdominal pain has been constant and does improve with pain medications. An NGT was placed with return of significant amount brown output. Her last BM was yesterday and she has not passed gas since then. She feels bloated and has minimal appetite. Denies fevers or chills. Labs unremarkable, afebrile and HDS. Abdominal surgical history is significant for YI, appendectomy, Hartmanns and subsequent reversal, rectal prolapse surgery and incisional hernia repair w/ mesh. Review of Systems All other systems reviewed and are negative. No past medical history on file. No past surgical history on file. Allergies Allergen Reactions Codeine Other Current Facility-Administere d Medications: acetaminophen (Tylenol) tablet 1,000 mg, 1,000 mg, oral, q6h PRN, Cristofer Cid MD, 1,000 mg at 06/15/23 1732 iohexol (OMNIPaque) 300 mg iodine/mL injection 30 mL, 30 mL, oral, Once in imaging, Davina Pino MD sodium chloride 0.9 % infusion, 100 mL/hr, intravenous, Continuous, Harjit Knowles MD, Last Rate: 100 mL/hr at 06/15/23 1648, 100 mL/hr at 06/15/23 1648 Insert peripheral IV, , , Once AND Saline lock IV, , , Once AND sodium chloride flush 10 mL, 10 mL, intravenous, q8h PRN, Harjit Knowles MD Social History Socioeconomic History Marital status: Spouse name: Not on file Number of children: Not on file Years of education: Not on file Highest education level: Not on file Occupational History Not on file Tobacco Use Smoking status: Not on file Smokeless tobacco: Not on file Substance and Sexual Activity Alcohol use: Not on file Drug use: Not on file Sexual activity: Not on file Other Topics Concern Not on file Social History Narrative Not on file Social Determinants of Health Financial Resource Strain: Not on file Food Insecurity: Not on file Transportation Needs: Not on file Physical Activity: Not on file Stress: Not on file Social Connections: Not on file Intimate Partner Violence: Unknown (06/15/2023) [place] [employer] [place] Fear of Current or Ex-Partner: Not on file Emotionally Abused: Not on file Physically Abused: Not on file Sexually Abused: Not on file Physically or Sexually Abused: Not on file Housing Stability: Not on file No family history on file. Physical Exam Constitutional: General: She is not in acute distress. HENT: Head: Normocephalic and atraumatic. Eyes: Conjunctiva/sclera: Conjunctivae normal. Cardiovascular: Rate and Rhythm: Normal rate. Pulmonary: Effort: No respiratory distress. Abdominal: General: There is distension. Tenderness: There is abdominal tenderness (lower abdomen, non-peritonitic). Musculoskeletal: General: Normal range of motion. Skin: General: Skin is warm and dry. Neurological: General: No focal deficit present. Mental Status: She is alert and oriented to person, place, and time. Psychiatric: Mood and Affect: Mood normal. Behavior: Behavior normal. Vital Signs: Blood pressure 152/68, pulse 71, temperature 36.7 ???C (98.1 ???F), temperature source Oral, resp. rate 18, height 1.574 m (5' 1.97 ), weight 77.1 kg (170 lb), SpO2 97 %. Admission Weight: Weight: 77.1 kg (170 lb) Labs: Lab Results Component Value Date WBC 7.17 06/15/2023 HGB 13.2 06/15/2023 HCT 39.6 06/15/2023 MCV 87.2 06/15/2023 PLT 263 06/15/2023 Lab Results Component Value Date CALCIUM 8.8 06/15/2023 NA 140 06/15/2023 K 3.8 06/15/2023 CO2 30 06/15/2023 CL 104 06/15/2023 BUN 13 06/15/2023 CREATININE 0.75 06/15/2023 No results found for: AMYLASE No results found for: LIPASE Lab Results Component Value Date ALT 21 06/15/2023 AST 17 06/15/2023 ALKPHOS 55 06/15/2023 No results found for: INR , PROTIME Imaging: CT abdomen pelvis wo IV contrast Narrative: [facility] Department of Radiology [address] [place] [address] Patient Name: FELISHA MONTANO : 1950 Sex: F Age: Race: White^White MRN: (more content not included)... Normal [facility] LACTIC ACID WITH 4 HOUR REFL EXon 06-15-2023 LACTATE (MMOL/L) IN SER/PLAS 1.4 mmol/L Normal 0.5-2.2 [facility] Comment on above: Performed By: #### L [id number] #### [facility] ([facility]) [address] [place] [address] MAGNESIUMon 06-15-2023 Magnesium [Mass/Vol] 1.9 mg/dL Normal 1.9-2.7 [facility] Comment on above: Performed By: #### L [id number] #### [facility] ([facility]) [address] [place] [address] PHOSPHORUSon 06-15-2023 Magnesium [Mass/Vol] 3.7 mg/dL Normal 2.5-5.0 [facility] Comment on above: Performed By: #### L [id number] #### [facility] ([facility]) [address] [place] [address] Screenson 05-29-2023 Screens [id number] #[id number] Normal [facility] Ambulatory Visit Summaryon 0 05-23-2023 Ambulatory Visit Summary FELISHA MONTANO :1950 Visit Date:05/23/2023 Ambulatory Visit Instructions Your Diagnosis Feeling of incomplete bladder emptying Urinary urgency Urethral stricture UTI (urinary tract infection) Your Care Team Attending Physician - Kera Retana MD Primary Care Physician - Sharlene Correa This Is Your Medications List estradiol topical (Estrace 0.1 mg/g Cream) Contact prescribing physician if questions or concerns acetaminophen-diphen hydrAMINE (Tylenol Extra Strength PM oral tablet) alprazolam (Xanax 0.25 mg Tab) ascorbic acid (Vitamin C) aspirin chondroitin-glucosam ine (Chondroitin-Glucosa mine) levothyroxine (levothyroxine 100 mcg (0.1 mg) Tab) loratadine (loratadine 10 mg Tab) omega-3 polyunsaturated fatty acids (Fish Oil) Procedures Performed Cystoscopy (09/12/2022), Appendectomy, Colonoscopy, Hernia, Hysterectomy. Discharge Vitals Heart Rate (Peripheral) 71 Respiratory Rate 16 Blood Pressure 123/71 Height 157 cm Height 62 in Weight 77.5 kg Weight 170.5 lb BMI 31.44 What to do next Scheduled Follow-Up Appointments Sunday 2:20 PM EDT With: YOLI CRAIN PA-C Where: [facility] [place] [id number] [place] [id number]- \.br\ You Need to Schedule the Following Appointments\.br\ Follow Up with YOLI CRAIN PA-C, URL When: In 2 months\.br\ Comments:\.br\ w/PVR\.br\ Where:\.br\ [address]br\ [place] [address]\.br\ Medications\.br\ What How Much When Why Instructions\.br\ Unchanged estradiol topical (Estrace 0.1 mg/ g Cream) See instructions Apply pea-sized amount around the opening of the urethra and vagina 3 times per week at night for one month then 2 times per week after for maintenance. \.br\ Unchanged acetaminophen-diphen hydrAMINE (Tylenol Extra Strength PM oral tablet) 1 Tablets By Mouth Once a day (at bedtime) Contact prescribing physician if questions or concerns \.br\ Unchanged alprazolam (Xanax 0.25 mg Tab) 1 Tablets By Mouth 3 times a day as needed for Anxiety Situational anxiety Sinusitis Bronchitis Daytime sleepiness Snoring Non-smoker BMI 32.0-32.9,adult Contact prescribing physician if questions or concerns \.br\ Unchanged ascorbic acid (Vitamin C) Every day Contact prescribing physician if questions or concerns \.br\ Unchanged aspirin 81 Milligram Every day Contact prescribing physician if questions or concerns \.br\ Unchanged chondroitin-glucosam ine (Chondroitin-Glucosa mine) 1 Capsules By Mouth Every day Contact prescribing physician if questions or concerns \.br\ Unchanged levothyroxine (levothyroxine 100 mcg (0.1 mg) Tab) 1 Tablets By Mouth Every day Contact prescribing physician if questions or concerns \.br\ Unchanged loratadine (loratadine 10 mg Tab) 1 Tablets By Mouth Every day Contact prescribing physician if questions or concerns \.br\ Unchanged omega-3 polyunsaturated fatty acids (Fish Oil) By Mouth Contact prescribing physician if questions or concerns \.br\ Allergies\.br\ Ambien (Violent acts towards others)\.br\ Lunesta (Dreams)\.br\ codeine (Unknown)\.br\ Problems\.br\ Ongoing - Any problem that you are currently receiving treatment for.\.br\ Abdominal pain\.br\ Anemia\.br\ Bronchitis\.br\ Cough\.br\ Daytime sleepiness\.br\ Diverticulitis\.br\ Dysuria\.br\ Feeling of incomplete bladder emptying\.br\ Fluid level behind tympanic membrane of both ears\.br\ Hematuria\.br\ Sinusitis\.br\ Situational anxiety\.br\ Skin texture changes\.br\ Snoring\.br\ Urethral stricture\.br\ Urinary urgency\.br\ UTI (urinary tract infection)\.br\ UTI due to Klebsiella species\.br\ Vaginal atrophy\.br\ Patient Survey\.br\ You may receive a survey via text or e-mail asking about your office visit. Please share your experience with us by completing your survey. We appreciate your feedback and thank you for choosing us for your care.\.br\ Education Materials\.br\ Urinary Tract Infection, Adult\.br\ \.br\ A urinary tract infection (UTI) is an infection of any part of the urinary tract. The urinary tract includes:\.br\ ? \.br\ The kidneys.\.br\ ? \.br\ The ureters.\.br\ ? \.br\ The bladder.\.br\ ? \.br\ The urethra.\.br\ These organs make, store, and get rid of pee (urine) in the body.\.br\ What are the causes?\.br\ This infection is caused by germs (bacteria) in your genital area. These germs grow and cause swelling (inflammation) of your urinary tract.\.br\ What increases the risk?\.br\ The following factors may make you more likely to develop this condition:\.br\ ? \.br\ Using a small, thin tube (catheter) to drain pee.\.br\ ? \.br\ Not being able to control when you pee or poop (incontinence).\.br\ ? \.br\ Being female. If you are female, these things can increase the risk:\.br\ ? \.br\ Using these methods to prevent :\.br\ ? \.br\ A medicine that kills sperm (spermicide).\.br\ ? \.br\ A device that blocks sperm (diaphragm).\.br\ ? \.br\ Having low levels of a female hormone (estrogen).\.br\ ? \.br\ Being .\.br\ You are more likely to develop this condition if:\.br\ ? \.br\ You have genes that add to your risk.\.br\ ? \.br\ You are sexually active.\.br\ ? \.br\ You take antibiotic medicines.\.br\ ? \.br\ You have trouble peeing because of:\.br\ ? \.br\ A prostate that is bigger than normal, if you are male.\.br\ ? \.br\ A blockage in the part of your body that drains pee from the bladder.\.br\ ? \.br\ A kidney stone.\.br\ ? \.br\ A nerve condition that affects your bladder.\.br\ ? \.br\ Not getting enough to drink.\.br\ ? \.br\ Not peeing often enough.\.br\ ? \.br\ You have other conditions, such as:\.br\ ? \.br\ Diabetes.\.br\ ? \.br\ A weak disease-fighting system (immune system).\.br\ ? \.br\ Sickle cell disease.\.br\ ? \.br\ Gout.\.br\ ? \.br\ Injury of the spine.\.br\ What are the signs or symptoms?\.br\ Symptoms of this condition include:\.br\ ? \.br\ Needing to pee right away.\.br\ ? \.br\ Peeing small amounts often.\.br\ ? \.br\ Pain or burning when peeing.\.br\ ? \.br\ Blood in the pee.\.br\ ? \.br\ Pee that smells bad or not like normal.\.br\ ? \.br\ Trouble peeing.\.br\ ? \.br\ Pee that is cloudy.\.br\ ? \.br\ Fluid coming from the vagina, if you are female.\.br\ ? \.br\ Pain in the belly or lower back.\.br\ Other symptoms include:\.br\ ? \.br\ Vomiting.\.br\ ? \.br\ Not feeling hungry.\.br\ ? \.br\ Feeling mixed up (confused). This may be the first symptom in older adults.\.br\ ? \.br\ Being tired and grouchy (irritable).\.br\ ? \.br\ A fever.\.br\ ? \.br\ Watery poop (diarrhea).\.br\ How is this treated?\.br\ ? \.br\ Taking antibiotic medicine.\.br\ ? \.br\ Taking other medicines.\.br\ ? \.br\ Drinking enough water.\.br\ In some cases, you may need to see a specialist.\.br\ Follow these instructions at home:\.br\ \.br\ Medicines\.br\ ? \.br\ Take [id number]-wserniq and prescription medicines only as told by your doctor.\.br\ ? \.br\ If you were prescribed an antibiotic medicine, take it as told by your doctor. Do not stop taking it even if you start to feel better.\.br\ General instructions\.br\ ? \.br\ Make sure you:\.br\ ? \.br\ Pee until your bladder is empty.\.br\ ? \.br\ Do not hold pee for a long time.\.br\ ? \.br\ Empty your bladder after sex.\.br\ ? \.br\ Wipe from front to back after peeing or pooping if you are a female. Use each tissue one time when you wipe.\.br\ ? \.br\ Drink enough fluid to keep your pee pale yellow.\.br\ ? \.br\ Keep all follow-up visits.\.br\ Contact a doctor if:\.br\ ? \.br\ You do not get better after 1?2 days.\.br\ ? \.br\ Your symptoms go away and then come back.\.br\ Get help right away if:\.br\ ? \.br\ You have very bad back pain.\.br\ ? \.br\ You have very bad pain in your lower belly.\.br\ ? \.br\ You have a fever.\.br\ ? \.br\ You have chills.\.br\ ? \.br\ You feeling like you will vomit or you vomit.\.br\ Summary\.br\ ? \.br\ A urinary tract infection (UTI) is an infection of any part of the urinary tract.\.br\ ? \.br\ This condition is caused by germs in your genital area.\.br\ ? \.br\ There are many risk factors for a UTI.\.br\ ? \.br\ Treatment includes antibiotic medicines.\.br\ [facility] Ambulatory Visit Summary FELISHA MONTANO :1950 Visit Date:05/23/2023 Ambulatory Visit Instructions Your Diagnosis Feeling of incomplete bladder emptying Urinary urgency Urethral stricture UTI (urinary tract infection) Your Care Team Attending Physician - Kera Retana MD Primary Care Physician - Sharlene Correa This Is Your Medications List estradiol topical (Estrace 0.1 mg/g Cream) Contact prescribing physician if questions or concerns acetaminophen-diphen hydrAMINE (Tylenol Extra Strength PM oral tablet) alprazolam (Xanax 0.25 mg Tab) ascorbic acid (Vitamin C) aspirin chondroitin-glucosam ine (Chondroitin-Glucosa mine) levothyroxine (levothyroxine 100 mcg (0.1 mg) Tab) loratadine (loratadine 10 mg Tab) omega-3 polyunsaturated fatty acids (Fish Oil) Procedures Performed Cystoscopy (09/12/2022), Appendectomy, Colonoscopy, Hernia, Hysterectomy. Discharge Vitals Heart Rate (Peripheral) 71 Respiratory Rate 16 Blood Pressure 123/71 Height 157 cm Height 62 in Weight 77.5 kg Weight 170.5 lb BMI 31.44 What to do next Scheduled Follow-Up Appointments Sunday 2:20 PM EDT With: YOLI CRAIN PA-C Where: [facility] [address] [place] [address]- \.br\ You Need to Schedule the Following Appointments\.br\ Follow Up with YOLI CRAIN PA-C, URL When: In 2 months\.br\ Comments:\.br\ w/PVR\.br\ Where:\.br\ [address]br\ [place] [address]\.br\ Medications\.br\ What How Much When Why Instructions\.br\ Unchanged estradiol topical (Estrace 0.1 mg/ g Cream) See instructions Apply pea-sized amount around the opening of the urethra and vagina 3 times per week at night for one month then 2 times per week after for maintenance. \.br\ Unchanged acetaminophen-diphen hydrAMINE (Tylenol Extra Strength PM oral tablet) 1 Tablets By Mouth Once a day (at bedtime) Contact prescribing physician if questions or concerns \.br\ Unchanged alprazolam (Xanax 0.25 mg Tab) 1 Tablets By Mouth 3 times a day as needed for Anxiety Situational anxiety Sinusitis Bronchitis Daytime sleepiness Snoring Non-smoker BMI 32.0-32.9,adult Contact prescribing physician if questions or concerns \.br\ Unchanged ascorbic acid (Vitamin C) Every day Contact prescribing physician if questions or concerns \.br\ Unchanged aspirin 81 Milligram Every day Contact prescribing physician if questions or concerns \.br\ Unchanged chondroitin-glucosam ine (Chondroitin-Glucosa mine) 1 Capsules By Mouth Every day Contact prescribing physician if questions or concerns \.br\ Unchanged levothyroxine (levothyroxine 100 mcg (0.1 mg) Tab) 1 Tablets By Mouth Every day Contact prescribing physician if questions or concerns \.br\ Unchanged loratadine (loratadine 10 mg Tab) 1 Tablets By Mouth Every day Contact prescribing physician if questions or concerns \.br\ Unchanged omega-3 polyunsaturated fatty acids (Fish Oil) By Mouth Contact prescribing physician if questions or concerns \.br\ Allergies\.br\ Ambien (Violent acts towards others)\.br\ Lunesta (Dreams)\.br\ codeine (Unknown)\.br\ Problems\.br\ Ongoing - Any problem that you are currently receiving treatment for.\.br\ Abdominal pain\.br\ Anemia\.br\ Bronchitis\.br\ Cough\.br\ Daytime sleepiness\.br\ Diverticulitis\.br\ Dysuria\.br\ Feeling of incomplete bladder emptying\.br\ Fluid level behind tympanic membrane of both ears\.br\ Hematuria\.br\ Sinusitis\.br\ Situational anxiety\.br\ Skin texture changes\.br\ Snoring\.br\ Urethral stricture\.br\ Urinary urgency\.br\ UTI (urinary tract infection)\.br\ UTI due to Klebsiella species\.br\ Vaginal atrophy\.br\ Patient Survey\.br\ You may receive a survey via text or e-mail asking about your office visit. Please share your experience with us by completing your survey. We appreciate your feedback and thank you for choosing us for your care.\.br\ Education Materials\.br\ Urinary Tract Infection, Adult\.br\ \.br\ A urinary tract infection (UTI) is an infection of any part of the urinary tract. The urinary tract includes:\.br\ ? \.br\ The kidneys.\.br\ ? \.br\ The ureters.\.br\ ? \.br\ The bladder.\.br\ ? \.br\ The urethra.\.br\ These organs make, store, and get rid of pee (urine) in the body.\.br\ What are the causes?\.br\ This infection is caused by germs (bacteria) in your genital area. These germs grow and cause swelling (inflammation) of your urinary tract.\.br\ What increases the risk?\.br\ The following factors may make you more likely to develop this condition:\.br\ ? \.br\ Using a small, thin tube (catheter) to drain pee.\.br\ ? \.br\ Not being able to control when you pee or poop (incontinence).\.br\ ? \.br\ Being female. If you are female, these things can increase the risk:\.br\ ? \.br\ Using these methods to prevent :\.br\ ? \.br\ A medicine that kills sperm (spermicide).\.br\ ? \.br\ A device that blocks sperm (diaphragm).\.br\ ? \.br\ Having low levels of a female hormone (estrogen).\.br\ ? \.br\ Being .\.br\ You are more likely to develop this condition if:\.br\ ? \.br\ You have genes that add to your risk.\.br\ ? \.br\ You are sexually active.\.br\ ? \.br\ You take antibiotic medicines.\.br\ ? \.br\ You have trouble peeing because of:\.br\ ? \.br\ A prostate that is bigger than normal, if you are male.\.br\ ? \.br\ A blockage in the part of your body that drains pee from the bladder.\.br\ ? \.br\ A kidney stone.\.br\ ? \.br\ A nerve condition that affects your bladder.\.br\ ? \.br\ Not getting enough to drink.\.br\ ? \.br\ Not peeing often enough.\.br\ ? \.br\ You have other conditions, such as:\.br\ ? \.br\ Diabetes.\.br\ ? \.br\ A weak disease-fighting system (immune system).\.br\ ? \.br\ Sickle cell disease.\.br\ ? \.br\ Gout.\.br\ ? \.br\ Injury of the spine.\.br\ What are the signs or symptoms?\.br\ Symptoms of this condition include:\.br\ ? \.br\ Needing to pee right away.\.br\ ? \.br\ Peeing small amounts often.\.br\ ? \.br\ Pain or burning when peeing.\.br\ ? \.br\ Blood in the pee.\.br\ ? \.br\ Pee that smells bad or not like normal.\.br\ ? \.br\ Trouble peeing.\.br\ ? \.br\ Pee that is cloudy.\.br\ ? \.br\ Fluid coming from the vagina, if you are female.\.br\ ? \.br\ Pain in the belly or lower back.\.br\ Other symptoms include:\.br\ ? \.br\ Vomiting.\.br\ ? \.br\ Not feeling hungry.\.br\ ? \.br\ Feeling mixed up (confused). This may be the first symptom in older adults.\.br\ ? \.br\ Being tired and grouchy (irritable).\.br\ ? \.br\ A fever.\.br\ ? \.br\ Watery poop (diarrhea).\.br\ How is this treated?\.br\ ? \.br\ Taking antibiotic medicine.\.br\ ? \.br\ Taking other medicines.\.br\ ? \.br\ Drinking enough water.\.br\ In some cases, you may need to see a specialist.\.br\ Follow these instructions at home:\.br\ \.br\ Medicines\.br\ ? \.br\ Take yauv-jly-hfslslg and prescription medicines only as told by your doctor.\.br\ ? \.br\ If you were prescribed an antibiotic medicine, take it as told by your doctor. Do not stop taking it even if you start to feel better.\.br\ General instructions\.br\ ? \.br\ Make sure you:\.br\ ? \.br\ Pee until your bladder is empty.\.br\ ? \.br\ Do not hold pee for a long time.\.br\ ? \.br\ Empty your bladder after sex.\.br\ ? \.br\ Wipe from front to back after peeing or pooping if you are a female. Use each tissue one time when you wipe.\.br\ ? \.br\ Drink enough fluid to keep your pee pale yellow.\.br\ ? \.br\ Keep all follow-up visits.\.br\ Contact a doctor if:\.br\ ? \.br\ You do not get better after 1?2 days.\.br\ ? \.br\ Your symptoms go away and then come back.\.br\ Get help right away if:\.br\ ? \.br\ You have very bad back pain.\.br\ ? \.br\ You have very bad pain in your lower belly.\.br\ ? \.br\ You have a fever.\.br\ ? \.br\ You have chills.\.br\ ? \.br\ You feeling like you will vomit or you vomit.\.br\ Summary\.br\ ? \.br\ A urinary tract infection (UTI) is an infection of any part of the urinary tract.\.br\ ? \.br\ This condition is caused by germs in your genital area.\.br\ ? \.br\ There are many risk factors for a UTI.\.br\ ? \.br\ Treatment includes antibiotic medicines.\.br\ [facility] 05-23-2023 Consent [id number] #1.00TIFF [facility] Patient Educationon 05-23-19 Patient Education Obstetrics and Gynecology Urinary Tract Infection, Adult A urinary tract infection (UTI) is an infection of any part of the urinary tract. The urinary tract includes: ? The kidneys. ? The ureters. ? The bladder. ? The urethra. These organs make, store, and get rid of pee (urine) in the body. What are the causes? This infection is caused by germs (bacteria) in your genital area. These germs grow and cause swelling (inflammation) of your urinary tract. What increases the risk? The following factors may make you more likely to develop this condition: ? Using a small, thin tube (catheter) to drain pee. ? Not being able to control when you pee or poop (incontinence). ? Being female. If you are female, these things can increase the risk: ? Using these methods to prevent : ? A medicine that kills sperm (spermicide). ? A device that blocks sperm (diaphragm). ? Having low levels of a female hormone (estrogen). ? Being . You are more likely to develop this condition if: ? You have genes that add to your risk. ? You are sexually active. ? You take antibiotic medicines. ? You have trouble peeing because of: ? A prostate that is bigger than normal, if you are male. ? A blockage in the part of your body that drains pee from the bladder. ? A kidney stone. ? A nerve condition that affects your bladder. ? Not getting enough to drink. ? Not peeing often enough. ? You have other conditions, such as: ? Diabetes. ? A weak disease-fighting system (immune system). ? Sickle cell disease. ? Gout. ? Injury of the spine. What are the signs or symptoms? Symptoms of this condition include: ? Needing to pee right away. ? Peeing small amounts often. ? Pain or burning when peeing. ? Blood in the pee. ? Pee that smells bad or not like normal. ? Trouble peeing. ? Pee that is cloudy. ? Fluid coming from the vagina, if you are female. ? Pain in the belly or lower back. Other symptoms include: ? Vomiting. ? Not feeling hungry. ? Feeling mixed up (confused). This may be the first symptom in older adults. ? Being tired and grouchy (irritable). ? A fever. ? Watery poop (diarrhea). How is this treated? ? Taking antibiotic medicine. ? Taking other medicines. ? Drinking enough water. In some cases, you may need to see a specialist. Follow these instructions at home: Medicines ? Take pquv-aku-xbdzyiv and prescription medicines only as told by your doctor. ? If you were prescribed an antibiotic medicine, take it as told by your doctor. Do not stop taking it even if you start to feel better. General instructions ? Make sure you: ? Pee until your bladder is empty. ? Do not hold pee for a long time. ? Empty your bladder after sex. ? Wipe from front to back after peeing or pooping if you are a female. Use each tissue one time when you wipe. ? Drink enough fluid to keep your pee pale yellow. ? Keep all follow-up visits. Contact a doctor if: ? You do not get better after 1?2 days. ? Your symptoms go away and then come back. Get help right away if: ? You have very bad back pain. ? You have very bad pain in your lower belly. ? You have a fever. ? You have chills. ? You feeling like you will vomit or you vomit. Summary ? A urinary tract infection (UTI) is an infection of any part of the urinary tract. ? This condition is caused by germs in your genital area. ? There are many risk factors for a UTI. ? Treatment includes antibiotic medicines. ? Drink enough fluid to keep your pee pale yellow. This information is not intended to replace advice given to you by your health care provider. Make sure you discuss any questions you have with your health care provider. Document Revised: 11/19/2020 Document Reviewed: 11/19/2020 [employer] Patient Education ? 2022 [employer] [facility] Patient Eval Forms Officeon 05-23-2023 Patient Eval Forms Office [id number] #1.00TIFF [facility] Patient Eval Forms Office [id number] #1.00TIFF [facility] Urology Office/Clinic Noteon 05-23-2023 Urology Office/Clinic Note Chief Complaint 3m PVR HPI Staff Pt is here for a 2 month F/U with PVR Previous DX; Feeling of incompletely emptying bladder, Urinary urgency, urethral stricture *Estrace Cream 2x/week. Occasionally will get up in the middle of the night due to urge to void, slow stream and small amounts. Sometimes will occur during the day as well. Occasional pain & burning. Denies visible blood in urine. Voiding q3-4hrs, does admit to needing to do timed voids. Leaks with coughing/sneezing & lifting heavy objects. Biggest concern is bladder worsening with age. Was told 15yrs ago that her bladder is tipped. History of Present Illness Tests reviewed: reviewed UA, external notes I have reviewed the previous health record information and history for this patient from and PCP I have reviewed and verified the staff HPI to be accurate for this encounter. There have been no associated fever, chills, flank pain, or blood in the urine. Denies any urinary infections since last encounter. Review of Systems PHQ Score Initial Depression Screen Score: 0 SCORE ROS - Provider Constitutional: denies weight loss, denies hot flashes. Eyes: denies eye problems. Gastrointestinal: denies nausea, denies vomiting. Cardiovascular: denies chest pain or angina. Integumentary: no dryness Musculoskeletal: denies musculoskeletal symptoms. ENMT: denies otolaryngeal symptoms. Respiratory: no shortness of breath. Heme/Lymph: denies easy bleeding tendency, denies easy bruising tendency. Psychiatric: no confusion, no anxiety. Genitourinary: See HPI. Physical Exam Vitals & Measurements HR: 71(Peripheral) RR: 16 BP: 123/71 HT: 62 in HT: 157 cm WT: 77.5 kg WT: 170.5 lb BMI: 31.44 General Appearance: alert , no acute distress, well nourished, well developed female. Genitourinary: bladder nonpalpable, no flank pain. Assessment/Plan Felisha is a 72 yo female initially referred by Cedric Vincent for bladder pains. Here for routine follow-up Had two abd hernia in 6 mos s/p surgical repair. Hx of rectal prolapse. BBS 14 1. Feeling of incomplete bladder emptying (R39.14: Feeling of incomplete bladder emptying) CT AP wo con 01/30/[address] report- Kidneys unremarkable. Moderately distended bladder. Hx of hysterectomy 20 yrs ago due to prolapse. Pt unsure if her bladder was dropping as well. Thinks she had bladder sling placed. Pt had UDS many years ago, was unable to void after filling bladder, endorses shy bladder. Did not have any tx or follow-up after that she knows of. S/p Cysto/UD 09/12/22 to 20 Fr due to sling PVR 354 (143cc) Occasionally will get up in the middle of the night due to urge to void, slow stream and small amounts. Sometimes will occur during the day as well. Denies visible blood in urine. Voiding q3-4hrs, does admit to needing to do timed voids. Discussed bladder pathophysiology. Advised pt that she is not emptying well and should start to do the timed voids again. Counseled pt on the risks of not voiding often including UTIs, bladder atony and renal failure. She declines CIC/cath. Follow up in 1-2 mos w/PVR w/SRINI. All questions/concerns were discussed. Pt to call the office if she encounters any issues prior. Pt acknowledges understanding. -Timed Voids x2 hours. Pt aware CIC will be impressed upon next visit if she continues to have elevated PVRs -Bladder Maneuvers. -Estrace cream per below -Behavioral modifications 2. Urinary urgency (R39.15: Urgency of urination) Will not give OAB meds at this time given incomplete bladder emptying. Pt states that she has some leaking, when she as to void, and feels she has to have a BM. Advised pt ot try to have regular BM's to help with her sxs. She declined CIC at this time. Leaks with coughing/sneezing & lifting heavy objects. -Timed voiding, PFPT at home -Bowel regimen -See #1 3. Urethral stricture (N35.919: Unspecified urethral stricture, male, unspecified site) S/p Cysto/UD 09/12/22 to 20 Fr due to sling Pt was to start Estrace cream 0.1 mg/g 2x/week. Pt states that she has noticed a lot of improvement in her sxs since starting the Estrace cream. Denies weak stream consistently, only when holds urine for too long. -Continue Estrace cream as above. Pt to call for refills. -Pt to notify us if having consistently weak stream again for potential repeat dilation 4. UTI (urinary tract infection) (N39.0: Urinary tract infection, site not specified) PCP 10/02/22 c/o pain and burning with urinating. Was given Macrobid & Pyridium. UA showed blood, C&S >100,000 cfu/ml Staphylococcus haemolyticus 100 cfu/ml Mixed skin contaminants On 10/23/22 pt had called her PCP stating she finished scripts and was still having pain and burning, was given a second round of abx. Abdominal US 11/28/22 - no stones or hydro UA today is negative for blood and infection. Occasional pain & burning. Pt denies any recent infections. Pt states that she has been having more routine BM's. Counseled pt on (more content not included)... [facility] Comment on above: Result Comment: Elec tronically Signed By: Kera Retana MD\.br\Date and Time Signed: 05/23/23 15:21 EST\.br\Electronically Co-Signed By: Sharon Fermin.br\Date and Time Co-Signed: 05/23/23 11:11 EST Consent for Treatmenton 04-25 Consent for Treatment [id number] #1.00TIFF [facility] Ambulatory Visit Summaryon 0 05-14-2023 Ambulatory Visit Summary FELISHA MONTANO :1950 Visit Date:05/14/2023 Ambulatory Visit Instructions Your Diagnosis BMI 32.0-32.9,adult Non-smoker Your Care Team Attending Physician - Sharlene Correa Primary Care Physician - Sharlene Correa This Is Your Medications List Non-Formulary Medication (Misc Medication) acetaminophen-diphen hydrAMINE (Tylenol Extra Strength PM oral tablet) alprazolam (Xanax 0.25 mg Tab) ascorbic acid (Vitamin C) aspirin azithromycin (azithromycin 250 mg Tab) cholecalciferol (Prevagen) chondroitin-glucosam ine (Chondroitin-Glucosa mine) estradiol topical (Estrace 0.1 mg/g Cream) levothyroxine (levothyroxine 100 mcg (0.1 mg) Tab) loratadine (loratadine 10 mg Tab) methylPREDNISolone (methylPREDNISolone 4 mg tab dosepak) omega-3 polyunsaturated fatty acids (Fish Oil) Procedures Performed Cystoscopy (09/12/2022), Appendectomy, Colonoscopy, Hernia, Hysterectomy. Discharge Vitals Temperature (Tympanic) 37.0 ?C Heart Rate (Peripheral) 80 Respiratory Rate 18 Blood Pressure 136/74 Height 157.5 cm Height 62 in Weight 83.3 kg Weight 183.26 lb BMI 33.58 What to do next Scheduled Follow-Up Appointments Sunday 8:15 PM EST With: Where: Sleep Lab Invalid Interpretation Code [address] [place] [address] [place] [address]- \.br\ Sunday 9:30 AM EDT \.br\ With:\.br\ Where: [facility] Family Medicine Office/Clini c Noteon 05-14-2023 Family Medicine Office/Clinic Note HPI Staff Felisha is a 72 year old presenting for acute sick visit Respiratory C/O: Onset: 1 week ago Body aches: no Chest congestion: no Chills: no Cough: yes Sputum production: yes green Sore throat: yes Ear complaints: yes itching Eye itching/watering: no Fever: no Headache: yes Nasal congestion: yes Nasal discharge: yes Poor appetite: yes Reduced activity: no Sinus pain/pressure: no Sneezing: yes Wheezing: no Ill contacts: no Remedies tried: Mucinex and Tylenol pt states she is suppose to do a sleep study tonight at [facility] and didn't know if she should re schedule since she isn't feeling good. unsteady dizziness History of Present Illness pt presents today with URI symptoms Review of Systems PHQ Score Initial Depression Screen Score: 0 SCORE ROS - Provider Constitutional: no fever, no chills, no sweats, no fatigue Respiratory: no shortness of breath, yes cough, no orthopnea, no wheezing. congsetion, sinus pain, ear pain, dizziness Cardiovascular: no chest pain, no palpitations, no edema. Neurologic: no headache, no dizziness, no numbness, no weakness. Physical Exam Vitals & Measurements T: 37.0 ?C(Tympanic) HR: 80(Peripheral) RR: 18 BP: 136/74 SpO2: 97% HT: 62 in HT: 157.5 cm WT: 83.3 kg WT: 183.26 lb BMI: 33.58 General: alert, no acute distress ENMT: oral mucosa moist, no pharyngeal erythema or exudate Cardiovascular: regular rate and rhythm, normal peripheral perfusion Respiratory: Lungs CTA, respirations non labored Extremities: no deformity, no trauma Neurological: oriented x 4, LOC appropriate for age, CN II-XII intact, motor strength equal & normal bilaterally, speech normal nasal congestion, sinus tenderness, SHELDON TM moderate amount clear fluid Assessment/Plan 1. Fluid level behind tympanic membrane of both ears (H65.93: Unspecified nonsuppurative otitis media, bilateral) SHELDON TM full of clear fluid. will send medrol dose pack and z pack. pt states this helped clear it up the last time she had it. 2. Sinusitis (J32.9: Chronic sinusitis, unspecified) sinus tenderness, nasal congestion and sinus pressure 3. Cough (R05.9: Cough, unspecified) c/o cough 4. Non-smoker (Z78.9: Other specified health status) continue not smoking 5. BMI 32.0-32.9,adult (Z68.32: Body mass index [BMI] 32.0-32.9, adult) BMI education complete Orders: azithromycin, = 1 packet(s), Oral, As Directed, as directed on package labeling, X 5 day(s), # 6 tab(s), Refills(s) 0, Pharmacy: [id number], 157.5, cm, 05/14/23 11:45:00 EST, Height/Length Dosing, 83.3, kg, 05/14/23 11:45:00 EST, Weight Dosing methylPREDNISolone, = 1 packet(s), Oral, Once, as directed on package labeling, # 21 tab(s), Refills(s) 0, Pharmacy: [id number], 157.5, cm, 05/14/23 11:45:00 EST, Height/Length Dosing, 83.3, kg, 05/14/23 11:45:00 EST, Weight Dosing Follow-up No qualifying data available Problem List/Past Medical History Ongoing Abdominal pain Anemia Bronchitis Cough Daytime sleepiness Diverticulitis Dysuria Feeling of incomplete bladder emptying Fluid level behind tympanic membrane of both ears Hematuria Sinusitis Situational anxiety Skin texture changes Snoring Urethral stricture Urinary urgency UTI (urinary tract infection) UTI due to Klebsiella species Vaginal atrophy Historical No qualifying data Procedure/Surgical History Cystoscopy (09/12/2022), Appendectomy, Colonoscopy, Hernia, Hysterectomy. Medications aspirin, 81 mg, Daily azithromycin 250 mg Tab, 1 packet(s), Oral, As Directed Chondroitin-Glucosam ine, 1 cap(s), Oral, Daily Estrace 0.1 mg/g Cream, See Instructions, 6 refills Fish Oil, Oral levothyroxine 100 mcg (0.1 mg) Tab, 100 mcg= 1 tab(s), Oral, Daily loratadine 10 mg Tab, 10 mg= 1 tab(s), Oral, Daily methylPREDNISolone 4 mg tab dosepak, 1 packet(s), Oral, Once Misc Medication, calcium 500 mg, Daily Prevagen, 50 mcg, Oral, Daily Tylenol Extra Strength PM oral tablet, 1 tab(s), Oral, Once a day (at bedtime) Vitamin C, Daily Xanax 0.25 mg Tab, 0.25 mg= 1 tab(s), Oral, TID, PRN Allergies Ambien (Violent acts towards others) Lunesta (Dreams) codeine (Unknown) Social History Alcohol Wine, 1-2 times per year, Household alcohol concerns: No., 12/05/2022 Tobacco Never (less than 100 in lifetime) Tobacco Use:. Never Smokeless Tobacco Use:. Household tobacco concerns: No., 05/14/2023 Family History Arthritis: Mother. High blood pressure: Mother. Multiple sclerosis: Father. Primary malignant neoplasm of female breast: Mother. Immunizations Vaccine Date Status Comments influenza virus vaccine, inactivated 01/04/2022 Recorded SARS-CoV-2 (COVID-19) [id number] 01/04/2022 Recorded SARS-CoV-2 (COVID-19) mRNA BNT-162b2 vax 03/24/2021 Recorded influenza virus vaccine, inactivated 03/14/2021 Recorded SARS-CoV-2 (COVID-19) mRNA BNT-162b2 vax 07/06/2020 Recorded 2022-08-25: [id number] SARS-CoV-2 (COV (more content not included)... [facility] Comment on above: Result Comment: Elec tronically Signed By: Sharlene Correa\.br\Date and Time Signed: 05/14/23 13:28 EST Physician Orderon 05-14-2023 Physician Order [id number] 33#1.00TIFF [facility] Sleep Studieson 05-09-2023 Sleep Studies [id number] #1.00TIFF [facility] Patient Eval Forms Officeon 05-02-2023 Patient Eval Forms Office [id number] 9#1.00TIFF [facility] Consenton 05-01-2023 Consent [id number] 4#1.00TIFF [facility] Consent for Treatmenton Consent for Treatment [id number] #1.00TIFF [facility] Physician Orderon 04-24-2023 Physician Order [id number] #1.00TIFF [facility] Family Medicine Office/Clini c Noteon 04-10-2023 Family Medicine Office/Clinic Note HPI Staff Felisha is 72 year old female presenting for acute visit Respiratory C/O: Onset: 1 week ago Body aches: yes Chest congestion: no Chills: no Cough: yes Sputum production: yes unknown Sore throat: yes Ear complaints: no full/muffled Eye itching/watering: no Fever: no Headache: yes Nasal congestion: yes Nasal discharge: yes Poor appetite: no Reduced activity: no Sinus pain/pressure: yes Sneezing: yes Wheezing: no Ill contacts: no Remedies tried: Mucinex Questions/Concerns: Skin changes large moles to back and then brown area to top left scalp. Would like referral to group sales representative. Pt lost recently and not doing well and would like to discuss medication. THIAGO: 6 PHQ-9: 8 Snoring: yes Witnessed Apnea: no Gasping at night: no Fatigue: yes Restless leg: yes HTN: Nocturnal Urination: once a night Would like to discuss referral for sleep study History of Present Illness pt presents today for upper respiratory symptoms, skin changes, situational anxiety Review of Systems PHQ Score Initial Depression Screen Score: 1 SCORE ROS - Provider Constitutional: no fever, no chills, no sweats, yes fatigue Respiratory: no shortness of breath, yes cough, no orthopnea, no wheezing. nasal congestion Cardiovascular: no chest pain, no palpitations, no edema. Neurologic: no headache, no dizziness, no numbness, no weakness. anxiety/depression due to of , day time sleepiness, snoring, gasping for air when sleeping Physical Exam Vitals & Measurements HR: 68(Peripheral) RR: 18 BP: 122/70 SpO2: 96% HT: 62 in HT: 157.5 cm WT: 81.3 kg WT: 178.86 lb BMI: 32.77 General: alert, no acute distress ENMT: oral mucosa moist, no pharyngeal erythema or exudate Cardiovascular: regular rate and rhythm, normal peripheral perfusion Respiratory: Lungs CTA, respirations non labored Extremities: no deformity, no trauma Neurological: oriented x 4, LOC appropriate for age, CN II-XII intact, motor strength equal & normal bilaterally, speech normal area on scalp dry flaky light brown in color, 3 moles on back are dark, rough and black in color Assessment/Plan 1. Situational anxiety (F41.8: Other specified anxiety disorders) pt just lost her and is really having a hard time. THIAGO and PQH-9 complete in office today. daughter will monitor symptoms. if she worsens they will call for daily medication to be phone in. Ordered: alprazolam, 0.25 mg = 1 tab(s), Oral, TID, PRN Anxiety, # 15 tab(s), Refills(s) 0, Pharmacy: [facility], 157.5, cm, 04/09/23 10:17:00 EST, Height/Length Dosing, 81.3, kg, 04/09/23 10:17:00 EST, Weight Dosing azithromycin, = 1 packet(s), Oral, As Directed, as directed on package labeling, X 5 day(s), # 6 tab(s), Refills(s) 0, Pharmacy: [facility], 157.5, cm, 04/09/23 10:17:00 EST, Height/Length Dosing, 81.3, kg, 04/09/23 10:17:00 EST, Weight Dosing methylPREDNISolone, = 1 packet(s), Oral, As Directed, as directed on package labeling, X 6 day(s), # 21 tab(s), Refills(s) 0, Pharmacy: [facility], 157.5, cm, 04/09/23 10:17:00 EST, Height/Length Dosing, 81.3, kg, 04/09/23 10:17:00 EST, Weight Dosing 2. Sinusitis (J32.9: Chronic sinusitis, unspecified) nasal congestion, sinus pressure headache Ordered: alprazolam, 0.25 mg = 1 tab(s), Oral, TID, PRN Anxiety, # 15 tab(s), Refills(s) 0, Pharmacy: [facility], 157.5, cm, 04/09/23 10:17:00 EST, Height/Length Dosing, 81.3, kg, 04/09/23 10:17:00 EST, Weight Dosing azithromycin, = 1 packet(s), Oral, As Directed, as directed on package labeling, X 5 day(s), # 6 tab(s), Refills(s) 0, Pharmacy: [facility], 157.5, cm, 04/09/23 10:17:00 EST, Height/Length Dosing, 81.3, kg, 04/09/23 10:17:00 EST, Weight Dosing methylPREDNISolone, = 1 packet(s), Oral, As Directed, as directed on package labeling, X 6 day(s), # 21 tab(s), Refills(s) 0, Pharmacy: [facility], 157.5, cm, 04/09/23 10:17:00 EST, Height/Length Dosing, 81.3, kg, 04/09/23 10:17:00 EST, Weight Dosing 3. Bronchitis (J40: Bronchitis, not specified as acute or chronic) severe cough. keeping her up at night Ordered: alprazolam, 0.25 mg = 1 tab(s), Oral, TID, PRN Anxiety, # 15 tab(s), Refills(s) 0, Pharmacy: [facility], 157.5, cm, 04/09/23 10:17:00 EST, Height/Length Dosing, 81.3, kg, 04/09/23 10:17:00 EST, Weight Dosing azithromycin, = 1 packet(s), Oral, As Directed, as directed on package labeling, X 5 day(s), # 6 tab(s), Refills(s) 0, Pharmacy: [facility], 157.5, cm, 04/09/23 10:17:00 EST, Height/Length Dosing, 81.3, kg, 04/09/23 10:17:00 EST, Weight Dosing methylPREDNISolone, = 1 packet(s), Oral, As Directed, as directed on package labeling, X 6 day(s), # 21 tab(s), Refills(s) 0, Pharmacy: [facility], 157.5, cm, 04/09/23 10:17:00 EST, Height/Length Dosing, 81.3, kg, 04/09/23 10:17:00 EST, Weight Dosing 4. Daytime sleepiness (R40.0: Somnolence) will order sleep apnea study Ordered: (more content not included)... [facility] Comment on above: Result Comment: Elec tronically Signed By: Sharlene Correa\.br\Date and Time Signed: 04/10/23 11:43 EST Ambulatory Visit Summaryon 1 06-10-2022 Ambulatory Visit Summary FELISHA MONTANO :1950 Visit Date:04/09/2023 Ambulatory Visit Instructions Your Diagnosis Situational anxiety Sinusitis Bronchitis Daytime sleepiness Skin texture changes Snoring Non-smoker BMI 32.0-32.9,adult Sinus pain Your Care Team Attending Physician - Sharlene Correa Primary Care Physician - Sharlene Correa This Is Your Medications List Non-Formulary Medication (Misc Medication) acetaminophen-diphen hydrAMINE (Tylenol Extra Strength PM oral tablet) alprazolam (Xanax 0.25 mg Tab) ascorbic acid (Vitamin C) aspirin azithromycin (azithromycin 250 mg Tab) cholecalciferol (Prevagen) chondroitin-glucosam ine (Chondroitin-Glucosa mine) estradiol topical (Estrace 0.1 mg/g Cream) levothyroxine (levothyroxine 100 mcg (0.1 mg) Tab) loratadine (loratadine 10 mg Tab) methylPREDNISolone (Medrol 4 mg Tab) omega-3 polyunsaturated fatty acids (Fish Oil) omega-3 polyunsaturated fatty acids (Fish Oil) Procedures Performed Cystoscopy (09/12/2022), Appendectomy, Colonoscopy, Hernia, Hysterectomy. Discharge Vitals Heart Rate (Peripheral) 68 Respiratory Rate 18 Blood Pressure 122/70 Height 157.5 cm Height 62 in Weight 81.3 kg Weight 178.86 lb BMI 32.77 What to do next Scheduled Follow-Up Appointments Sunday 10:00 AM EST With: Mazin PRYOR, Kera Smith Where: [facility] [address] [address]- \.br\ Someone Will Contact You Regarding These Appointments\.br\ [facility] [place] Ambulatory Referral, Service not offered at [facility], Dermatology, [facility] in [place], 04/09/23 10:42:00 EST, Skin texture changes\.br\ Medications\.br\ What How Much When Why Instructions\.br\ New alprazolam (Xanax 0.25 mg Tab) 1 Tablets By Mouth 3 times a day as needed for Anxiety Situational anxiety Sinusitis Bronchitis Daytime sleepiness Snoring Non-smoker BMI 32.0-32.9,adult Pickup at [facility]\.br\ New azithromycin (azithromycin 250 mg Tab) 1 Packets By Mouth As Directed Situational anxiety Sinusitis Bronchitis Daytime sleepiness Skin texture changes Snoring Non-smoker BMI 32.0-32.9,adult Duration: 5 Days as directed on package labeling Pickup at [facility]\.br\ New methylPREDNISolone (Medrol 4 mg Tab) 1 Packets By Mouth As Directed Situational anxiety Sinusitis Bronchitis Daytime sleepiness Skin texture changes Snoring Non-smoker BMI 32.0-32.9,adult Duration: 6 Days as directed on package labeling Pickup at [facility]\.br\ Unchanged acetaminophen-diphen hydrAMINE (Tylenol Extra Strength PM oral tablet) 1 Tablets By Mouth Once a day (at bedtime)\.br\ Unchanged ascorbic acid (Vitamin C) Every day\.br\ Unchanged aspirin 81 Milligram Every day\.br\ Unchanged cholecalciferol (Prevagen) 50 Microgram By Mouth Every day\.br\ Unchanged chondroitin-glucosam ine (Chondroitin-Glucosa mine) 1 Capsules By Mouth Every day\.br\ Unchanged estradiol topical (Estrace 0.1 mg/ g Cream) See instructions Apply pea-sized amount around the opening of the urethra and vagina 3 times per week at night for one month then 2 times per week after for maintenance. \.br\ Unchanged levothyroxine (levothyroxine 100 mcg (0.1 mg) Tab) 1 Tablets By Mouth Every day\.br\ Unchanged loratadine (loratadine 10 mg Tab) 1 Tablets By Mouth Every day\.br\ Unchanged Non-Formulary Medication (Misc Medication) calcium 500 mg Every day\.br\ Unchanged omega-3 polyunsaturated fatty acids (Fish Oil) 1,000 Milligram By Mouth Every day\.br\ Unchanged omega-3 polyunsaturated fatty acids (Fish Oil) By Mouth\.br\ Pharmacy Information\.br\ [facility]: [address], [place] [id number] [phone]\.br\ Allergies\.br\ Ambien (Violent acts towards others)\.br\ Lunesta (Dreams)\.br\ codeine (Unknown)\.br\ Problems\.br\ Ongoing - Any problem that you are currently receiving treatment for.\.br\ Abdominal pain\.br\ Anemia\.br\ Bronchitis\.br\ Daytime sleepiness\.br\ Diverticulitis\.br\ Dysuria\.br\ Feeling of incomplete bladder emptying\.br\ Hematuria\.br\ Sinusitis\.br\ Situational anxiety\.br\ Skin texture changes\.br\ Snoring\.br\ Urethral stricture\.br\ Urinary urgency\.br\ UTI (urinary tract infection)\.br\ UTI due to Klebsiella species\.br\ Vaginal atrophy\.br\ Patient Survey\.br\ You may receive a survey via text or e-mail asking about your office visit. Please share your experience with us by completing your survey. We appreciate your feedback and thank you for choosing us for your care.\.br\ \.br\ [facility] Physician Referralon 023 Physician Referral [id number] 9#1.00TIFF [facility] Ambulatory Visit Summaryon 1 04-23-2022 Ambulatory Visit Summary FELISHA MONTANO :1950 Visit Date:02/21/2023 Ambulatory Visit Instructions Your Diagnosis Feeling of incomplete bladder emptying Urinary urgency Urethral stricture UTI (urinary tract infection) Tests Performed Urnls Dip Stick Auto w/o Microscopy POC 37541 Your Care Team Attending Physician - Mazin PRYOR, Kera Smith Primary Care Physician - Sharlene Correa This Is Your Medications List Contact prescribing physician if questions or concerns Non-Formulary Medication (Misc Medication) acetaminophen-diphen hydrAMINE (Tylenol Extra Strength PM oral tablet) ascorbic acid (Vitamin C) aspirin cholecalciferol (Prevagen) chondroitin-glucosam ine (Chondroitin-Glucosa mine) estradiol topical (Estrace 0.1 mg/g Cream) levothyroxine (levothyroxine 100 mcg (0.1 mg) Tab) loratadine (loratadine 10 mg Tab) omega-3 polyunsaturated fatty acids (Fish Oil) omega-3 polyunsaturated fatty acids (Fish Oil) Procedures Performed Cystoscopy (09/12/2022), Appendectomy, Colonoscopy, Hernia, Hysterectomy. Discharge Vitals Heart Rate (Peripheral) 67 Respiratory Rate 16 Blood Pressure 130/65 Height 157.48 cm Height 62 in Weight 82.55 kg Weight 181.61 lb BMI 33.29 What to do next Scheduled Follow-Up Appointments Sunday 10:00 AM EST With: Mazin PRYOR, Kera Smith Where: [facility] [place] [id number] [place] [id number]- \.br\ You Need to Schedule the Following Appointments\.br\ Follow Up with Mazin PRYOR, Kera Smith, URL, URO When: In 3 months\.br\ Comments:\.br\ w/PVR\.br\ Where:\.br\ Medications\.br\ What How Much When Instructions\.br\ Unchanged acetaminophen-diphen hydrAMINE (Tylenol Extra Strength PM oral tablet) 1 Tablets By Mouth Once a day (at bedtime) Contact prescribing physician if questions or concerns \.br\ Unchanged ascorbic acid (Vitamin C) Every day Contact prescribing physician if questions or concerns \.br\ Unchanged aspirin 81 Milligram Every day Contact prescribing physician if questions or concerns \.br\ Unchanged cholecalciferol (Prevagen) 50 Microgram By Mouth Every day Contact prescribing physician if questions or concerns \.br\ Unchanged chondroitin-glucosam ine (Chondroitin-Glucosa mine) 1 Capsules By Mouth Every day Contact prescribing physician if questions or concerns \.br\ Unchanged estradiol topical (Estrace 0.1 mg/ g Cream) See instructions Apply pea-sized amount around the opening of the urethra and vagina 3 times per week at night for one month then 2 times per week after for maintenance. Contact prescribing physician if questions or concerns \.br\ Unchanged levothyroxine (levothyroxine 100 mcg (0.1 mg) Tab) 1 Tablets By Mouth Every day Contact prescribing physician if questions or concerns \.br\ Unchanged loratadine (loratadine 10 mg Tab) 1 Tablets By Mouth Every day Contact prescribing physician if questions or concerns \.br\ Unchanged Non-Formulary Medication (Misc Medication) calcium 500 mg Every day Contact prescribing physician if questions or concerns \.br\ Unchanged omega-3 polyunsaturated fatty acids (Fish Oil) 1,000 Milligram By Mouth Every day Contact prescribing physician if questions or concerns \.br\ Unchanged omega-3 polyunsaturated fatty acids (Fish Oil) By Mouth Contact prescribing physician if questions or concerns \.br\ Test Results\.br\ Urnls Dip Stick Auto w/o Microscopy POC 47822 (02/21/2023)\.br\ Bilirubin Urine Dipstick - Negative\.br\ Blood Urine Dipstick - Trace-intact\.br\ Glucose Urine Dipstick - Negative\.br\ Ketones Urine Dipstick - Negative\.br\ Leukocytes Urine Dipstick - Trace\.br\ Nitrite Urine Dipstick - Negative\.br\ Protein Urine Dipstick - Negative\.br\ Specific [place] Urine Dipstick - 1.020\.br\ Urine Appearance Urine Dipstick - Clear\.br\ Urine Color Urine Dipstick - Yellow\.br\ Urobilinogen Urine Dipstick - Normal 0.2-1 EU/dl\.br\ pH Urine Dipstick - 6\.br\ Allergies\.br\ Ambien (Violent acts towards others)\.br\ Lunesta (Dreams)\.br\ codeine (Unknown)\.br\ Problems\.br\ Ongoing - Any problem that you are currently receiving treatment for.\.br\ Abdominal pain\.br\ Anemia\.br\ Diverticulitis\.br\ Dysuria\.br\ Feeling of incomplete bladder emptying\.br\ Hematuria\.br\ Urethral stricture\.br\ Urinary urgency\.br\ UTI (urinary tract infection)\.br\ UTI due to Klebsiella species\.br\ Vaginal atrophy\.br\ Patient Survey\.br\ You may receive a survey via text or e-mail asking about your office visit. Please share your experience with us by completing your survey. We appreciate your feedback and thank you for choosing us for your care.\.br\ Education Materials\.br\ Urinary Tract Infection, Adult\.br\ \.br\ A urinary tract infection (UTI) is an infection of any part of the urinary tract. The urinary tract includes:\.br\ ? \.br\ The kidneys.\.br\ ? \.br\ The ureters.\.br\ ? \.br\ The bladder.\.br\ ? \.br\ The urethra.\.br\ These organs make, store, and get rid of pee (urine) in the body.\.br\ What are the causes?\.br\ This infection is caused by germs (bacteria) in your genital area. These germs grow and cause swelling (inflammation) of your urinary tract.\.br\ What increases the risk?\.br\ The following factors may make you more likely to develop this condition:\.br\ ? \.br\ Using a small, thin tube (catheter) to drain pee.\.br\ ? \.br\ Not being able to control when you pee or poop (incontinence).\.br\ ? \.br\ Being female. If you are female, these things can increase the risk:\.br\ ? \.br\ Using these methods to prevent :\.br\ ? \.br\ A medicine that kills sperm (spermicide).\.br\ ? \.br\ A device that blocks sperm (diaphragm).\.br\ ? \.br\ Having low levels of a female hormone (estrogen).\.br\ ? \.br\ Being .\.br\ You are more likely to develop this condition if:\.br\ ? \.br\ You have genes that add to your risk.\.br\ ? \.br\ You are sexually active.\.br\ ? \.br\ You take antibiotic medicines.\.br\ ? \.br\ You have trouble peeing because of:\.br\ ? \.br\ A prostate that is bigger than normal, if you are male.\.br\ ? \.br\ A blockage in the part of your body that drains pee from the bladder.\.br\ ? \.br\ A kidney stone.\.br\ ? \.br\ A nerve condition that affects your bladder.\.br\ ? \.br\ Not getting enough to drink.\.br\ ? \.br\ Not peeing often enough.\.br\ ? \.br\ You have other conditions, such as:\.br\ ? \.br\ Diabetes.\.br\ ? \.br\ A weak disease-fighting system (immune system).\.br\ ? \.br\ Sickle cell disease.\.br\ ? \.br\ Gout.\.br\ ? \.br\ Injury of the spine.\.br\ What are the signs or symptoms?\.br\ Symptoms of this condition include:\.br\ ? \.br\ Needing to pee right away.\.br\ ? \.br\ Peeing small amounts often.\.br\ ? \.br\ Pain or burning when peeing.\.br\ ? \.br\ Blood in the pee.\.br\ ? \.br\ Pee that smells bad or not like normal.\.br\ ? \.br\ Trouble peeing.\.br\ ? \.br\ Pee that is cloudy.\.br\ ? \.br\ Fluid coming from the vagina, if you are female.\.br\ ? \.br\ Pain in the belly or lower back.\.br\ Other symptoms include:\.br\ ? \.br\ Vomiting.\.br\ ? \.br\ Not feeling hungry.\.br\ ? \.br\ Feeling mixed up (confused). This may be the first symptom in older adults.\.br\ ? \.br\ Being tired and grouchy (irritable).\.br\ ? \.br\ A fever.\.br\ ? \.br\ Watery poop (diarrhea).\.br\ How is this treated?\.br\ ? \.br\ Taking antibiotic medicine.\.br\ ? \.br\ Taking other medicines.\.br\ ? \.br\ Drinking enough water.\.br\ In some cases, you may need to see a specialist.\.br\ Follow these instructions at home:\.br\ \.br\ Medicines\.br\ ? \.br\ Take alyc-xmn-gzzmdsh and prescription medicines only as told by your doctor.\.br\ ? \.br\ If you were prescribed an antibiotic medicine, take it as told by your doctor. Do not stop taking it even if you start to feel better.\.br\ General instructions\.br\ ? \.br\ Make sure you:\.br\ ? \.br\ Pee until your bladder is empty.\.br\ ? \.br\ Do not hold pee for a long time.\.br\ ? \.br\ Empty your bladder after sex.\.br\ ? \.br\ Wipe from front to back after peeing or pooping if you are a female. Use each tissue one time when you wipe.\.br\ ? \.br\ Drink enough fluid to keep your pee pale yellow.\.br\ ? \.br\ Keep all follow-up visits.\.br\ Contact a doctor if:\.br\ ? \.br\ You do not get better after 1?2 days.\.br\ ? \.br\ Your symptoms go away and then come back.\.br\ Get help right away if:\.br\ ? \.br\ You have very bad back pain.\ [facility] Patient Educationon 02-22-20 Patient Education Obstetrics and Gynecology Urinary Tract Infection, Adult A urinary tract infection (UTI) is an infection of any part of the urinary tract. The urinary tract includes: ? The kidneys. ? The ureters. ? The bladder. ? The urethra. These organs make, store, and get rid of pee (urine) in the body. What are the causes? This infection is caused by germs (bacteria) in your genital area. These germs grow and cause swelling (inflammation) of your urinary tract. What increases the risk? The following factors may make you more likely to develop this condition: ? Using a small, thin tube (catheter) to drain pee. ? Not being able to control when you pee or poop (incontinence). ? Being female. If you are female, these things can increase the risk: ? Using these methods to prevent : ? A medicine that kills sperm (spermicide). ? A device that blocks sperm (diaphragm). ? Having low levels of a female hormone (estrogen). ? Being . You are more likely to develop this condition if: ? You have genes that add to your risk. ? You are sexually active. ? You take antibiotic medicines. ? You have trouble peeing because of: ? A prostate that is bigger than normal, if you are male. ? A blockage in the part of your body that drains pee from the bladder. ? A kidney stone. ? A nerve condition that affects your bladder. ? Not getting enough to drink. ? Not peeing often enough. ? You have other conditions, such as: ? Diabetes. ? A weak disease-fighting system (immune system). ? Sickle cell disease. ? Gout. ? Injury of the spine. What are the signs or symptoms? Symptoms of this condition include: ? Needing to pee right away. ? Peeing small amounts often. ? Pain or burning when peeing. ? Blood in the pee. ? Pee that smells bad or not like normal. ? Trouble peeing. ? Pee that is cloudy. ? Fluid coming from the vagina, if you are female. ? Pain in the belly or lower back. Other symptoms include: ? Vomiting. ? Not feeling hungry. ? Feeling mixed up (confused). This may be the first symptom in older adults. ? Being tired and grouchy (irritable). ? A fever. ? Watery poop (diarrhea). How is this treated? ? Taking antibiotic medicine. ? Taking other medicines. ? Drinking enough water. In some cases, you may need to see a specialist. Follow these instructions at home: Medicines ? Take qucg-jyj-xoupdcz and prescription medicines only as told by your doctor. ? If you were prescribed an antibiotic medicine, take it as told by your doctor. Do not stop taking it even if you start to feel better. General instructions ? Make sure you: ? Pee until your bladder is empty. ? Do not hold pee for a long time. ? Empty your bladder after sex. ? Wipe from front to back after peeing or pooping if you are a female. Use each tissue one time when you wipe. ? Drink enough fluid to keep your pee pale yellow. ? Keep all follow-up visits. Contact a doctor if: ? You do not get better after 1?2 days. ? Your symptoms go away and then come back. Get help right away if: ? You have very bad back pain. ? You have very bad pain in your lower belly. ? You have a fever. ? You have chills. ? You feeling like you will vomit or you vomit. Summary ? A urinary tract infection (UTI) is an infection of any part of the urinary tract. ? This condition is caused by germs in your genital area. ? There are many risk factors for a UTI. ? Treatment includes antibiotic medicines. ? Drink enough fluid to keep your pee pale yellow. This information is not intended to replace advice given to you by your health care provider. Make sure you discuss any questions you have with your health care provider. Document Revised: 11/19/2020 Document Reviewed: 11/19/2020 [employer] Patient Education ? 2022 [employer] [facility] Retail - Clinical Noteon Retail - Clinical Note [id number] #1.00TIFF [facility] Screenson 02-21-2023 Screens [id number] #1.00TIFF [facility] Urology Office/Clinic Noteon 02-21-2023 Urology Office/Clinic Note Chief Complaint follow up HPI Staff S/P Cysto/UD 09/12/22 DX: Feeling of Incomplete Bladder Emptying, Urgency, Vaginal Atrophy & Urethral Stricture Started on Estrace Cream 3x/wk for 1 month then decreased to 2x/wk Pt did see her PCP 10/02/22 c/o pain and burning with urinating. Was given Macrobid & Pyridium. UA showed blood, C&S >100,000 cfu/ml Staphylococcus haemolyticus 100 cfu/ml Mixed skin contaminants On 10/23/22 pt had called her PCP stating she finished scripts and was still having pain and burning. Pt denies any infections since. Abdominal US 11/28/22 Painful urination: no Blood in urine: no urinary frequency: no urinary urgency: no incomplete emptying: yes, patient states intermittently nocturia: yes atleast 1x, ongoing for a long time. weak stream: no post void dribbling: no urinary incontinence: yes intermittently with coughing and sneezing History of Present Illness Tests reviewed: reviewed UA, external records I have reviewed the previous health record information and history for this patient from . I have reviewed and verified the staff HPI to be accurate for this encounter. There have been no associated fever, chills, flank pain, or blood in the urine. Review of Systems ROS - Provider Constitutional: denies weight loss, denies hot flashes. Eyes: denies eye problems. Gastrointestinal: denies nausea, denies vomiting. Cardiovascular: denies chest pain or angina. Integumentary: no dryness Musculoskeletal: denies musculoskeletal symptoms. ENMT: denies otolaryngeal symptoms. Respiratory: no shortness of breath. Heme/Lymph: denies easy bleeding tendency, denies easy bruising tendency. Psychiatric: no confusion, no anxiety. Genitourinary: See HPI. Physical Exam Vitals & Measurements HR: 67(Peripheral) RR: 16 BP: 130/65 HT: 62 in HT: 157.48 cm WT: 82.55 kg WT: 181.61 lb BMI: 33.29 General Appearance: alert , no acute distress, well nourished, well developed female. Genitourinary: bladder nonpalpable, no flank pain. Assessment/Plan Felisha is a 72 yo female initially referred by Cedric Vincent for bladder pains. Here for routine follow-up Had two abd hernia in 6 mos s/p surgical repair. Baseline does not have BMs everyday. Hx of rectal prolapse. 1. Feeling of incomplete bladder emptying (R39.14: Feeling of incomplete bladder emptying) CT AP wo con 01/30/[address] report- Kidneys unremarkable. Moderately distended bladder. Hx of hysterectomy 20 yrs ago due to prolapse. Pt unsure if her bladder was dropping as well. Thinks she had bladder sling placed. Pt had UDS many years ago, was unable to void after filling bladder, endorses shy bladder. Did not have any tx or follow-up after that she knows of. S/p Cysto/UD 09/12/22 to 20 Fr due to sling PVR 143 (278cc) Pt states that she tries not to wait to void longer than 1-2 hours. Pt states that she does bladder maneuvers. Pt states that she feels the UD helped her urinary sxs, does not know if her sxs are coming back. Advised pt to call our office if she feels like she is not emptying again and we can schedule another round of UD. -timed Voids -Bladder Maneuvers. -estrace cream per below 2. Urinary urgency (R39.15: Urgency of urination) Will not give OAB meds at this time given incomplete bladder emptying. Pt states that she has some leaking, when she as to void, and feels she has to have a BM. Advised pt ot try to have regular BM's to help with her sxs. She declined CIC at this time. -Timed voiding, PFPT at home -Bowel regimen 3. Urethral stricture (N35.919: Unspecified urethral stricture, male, unspecified site) See #1 Discussed risk of recurrence. Pt was to start Estrace cream 0.1 mg/g. Pt states that she has not used the cream due to the padilla, $125, did not call our office to tell us. Advise dpt that there are other options that we could try that might be cheaper. Pt states that she would like to try [facility]. Advise dpt to call our office if this cream is also too cost prohibitive. -Will send estrogen cream script to [facility]. 4. UTI (urinary tract infection) (N39.0: Urinary tract infection, site not specified) Pt did see her PCP 10/02/22 c/o pain and burning with urinating. Was given Macrobid & Pyridium. UA showed blood, C&S >100,000 cfu/ml Staphylococcus haemolyticus 100 cfu/ml Mixed skin contaminants On 10/23/22 pt had called her PCP stating she finished scripts and was still having pain and burning, was given a second round of abx. Pt denies any infections since. Abdominal US 11/28/22 - no stones or hydro UA today shows trace-intact blood and trace leuks. Pt states that she is no longer having sxs. Advised pt that she does not have any stones or hydro. Counseled pt on UTI preventive supplements. 10% of women over the age of 60 will have recurrent urinary tract infection - 2 or more urinary tract infection in 6 months or 3 or more per year. We discussed the presence of vaginal atrophy on physical examination. I explained (more content not included)... Normal [facility] Comment on above: Result Comment: Elec tronically Signed By: Kera Retana MD\.br\Date and Time Signed: 02/21/23 20:49 EDT\.br\Electronically Co-Signed By: Sharon Fermin\.br\Date and Time Co-Signed: 02/21/23 10:43 EDT .Interpretation:on HCV Ab IA Ql Comment Invalid Interpretation Code [facility] Comment on above: Result Comment: Not infected with HCV unless early or acute infection is suspected (which may be delayed in an immunocompromised individual), or other evidence exists to indicate HCV infection. Performed at: [address] [id number] PhD Nestor Estrada Performed By: #### 2 [id number], [id number], [id number], [id number], [id number], [id number] ####[facility] [address] [place] [address] HCV Antibody RFX to Quant PC David 12-07-2022 HCV IgG IA Ql Non-Reactive Invalid Interpretation Code Non Reactive [facility] Comment on above: Result Comment: Perf ormed at: [address] [id number] PhD Nestor Estrada Performed By: #### 2 [id number], [id number], [id number], [id number], [id number], [id number] ####[facility] [address] [place] [address] Ambulatory Visit Summaryon 0 12-05-2022 Ambulatory Visit Summary FELISHA MONTANO :1950 Visit Date:12/05/2022 Ambulatory Visit Instructions Your Diagnosis Annual visit for general adult medical examination without abnormal findings Screening for ischemic heart disease Fatigue Other problems related to lifestyle Abdominal pain Urinary urgency Ovarian failure Screening mammogram for breast cancer Class 1 obesity due to excess calories with body mass index (BMI) of 31.0 to 31.9 in adult Tests Performed BD Bone Density DEXA -- Results Pending -- MA Mamm Screen w/CAD if perf and 3D Sheldon -- Results Pending -- Please visit your patient portal for your results or contact your primary care physician. Your Care Team Attending Physician - Sharlene Correa Primary Care Physician - Sharlene Correa This Is Your Medications List Non-Formulary Medication (Misc Medication) acetaminophen-diphen hydrAMINE (Tylenol Extra Strength PM oral tablet) ascorbic acid (Vitamin C) aspirin cholecalciferol (Prevagen) chondroitin-glucosam ine (Chondroitin-Glucosa mine) estradiol topical (Estrace 0.1 mg/g Cream) levothyroxine (levothyroxine 100 mcg (0.1 mg) Tab) loratadine (loratadine 10 mg Tab) omega-3 polyunsaturated fatty acids (Fish Oil) Procedures Performed Cystoscopy (09/12/2022), Appendectomy, Colonoscopy, Hernia, Hysterectomy. Discharge Vitals Heart Rate (Peripheral) 66 Blood Pressure 112/74 Height 161 cm Height 63 in Weight 82 kg Weight 180.4 lb BMI 31.63 What to do next Scheduled Follow-Up Appointments Sunday 10:00 AM EDT With: Mazin PRYOR, Kera Smith Where: [facility] [id number] \.br\ Medications\.br\ What How Much When Instructions\.br\ Unchanged acetaminophen-diphen hydrAMINE (Tylenol Extra Strength PM oral tablet) 1 Tablets By Mouth Once a day (at bedtime)\.br\ Unchanged ascorbic acid (Vitamin C) Every day\.br\ Unchanged aspirin 81 Milligram Every day\.br\ Unchanged cholecalciferol (Prevagen) 50 Microgram By Mouth Every day\.br\ Unchanged chondroitin-glucosam ine (Chondroitin-Glucosa mine) 1 Capsules By Mouth Every day\.br\ Unchanged estradiol topical (Estrace 0.1 mg/ g Cream) See instructions Apply pea-sized amount around the opening of the urethra and vagina 3 times per week at night for one month then 2 times per week after for maintenance. \.br\ Unchanged levothyroxine (levothyroxine 100 mcg (0.1 mg) Tab) 1 Tablets By Mouth Every day\.br\ Unchanged loratadine (loratadine 10 mg Tab) 1 Tablets By Mouth Every day\.br\ Unchanged Non-Formulary Medication (Misc Medication) calcium 500 mg Every day\.br\ Unchanged omega-3 polyunsaturated fatty acids (Fish Oil) 1,000 Milligram By Mouth Every day\.br\ Allergies\.br\ Ambien (Violent acts towards others)\.br\ Lunesta (Dreams)\.br\ codeine (Unknown)\.br\ Problems\.br\ Ongoing - Any problem that you are currently receiving treatment for.\.br\ Abdominal pain\.br\ Anemia\.br\ Diverticulitis\.br\ Dysuria\.br\ Feeling of incomplete bladder emptying\.br\ Hematuria\.br\ Urethral stricture\.br\ Urinary urgency\.br\ Vaginal atrophy\.br\ Education Materials\.br\ Breast Self-Awareness\.br\ Breast self-awareness means being familiar with how your breasts look and feel. It involves checking your breasts regularly and telling your health care provider about any changes.\.br\ Practicing breast self-awareness helps to maintain breast health. Sometimes, changes are not harmful (are benign). Other times, a change in your breasts can be a sign of a serious medical problem. Being familiar with the look and feel of your breasts can help you catch a breast problem while it is still small and can be treated. You should do breast self-exams even if you have breast implants.\.br\ What you need:\.br\ ? \.br\ A mirror.\.br\ ? \.br\ A well-lit room.\.br\ ? \.br\ A pillow or other soft object.\.br\ How to do a breast self-exam\.br\ A breast self-exam is one way to learn what is normal for your breasts and whether your breasts are changing. To do a breast self-exam:\.br\ Look for changes\.br\ \.br\ 1. \.br\ Remove all the clothing above your waist.\.br\ 2. 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 \.br\ Put your hands down at your sides.\.br\ 4. \.br\ Compare your breasts in the mirror. Look for differences between them (asymmetry), such as:\.br\ ? \.br\ Differences in shape.\.br\ ? \.br\ Differences in size.\.br\ ? \.br\ Puckers, dips, and bumps in one breast and not the other.\.br\ 5. \.br\ Look at each breast for changes in the skin, such as:\.br\ ? \.br\ Redness.\.br\ ? \.br\ Scaly areas.\.br\ ? \.br\ Skin thickening.\.br\ ? \.br\ Dimpling.\.br\ ? \.br\ Open sores (ulcers).\.br\ 6. \.br\ Look for changes in your nipples, such as:\.br\ ? \.br\ Discharge.\.br\ ? \.br\ Bleeding.\.br\ ? \.br\ Dimpling.\.br\ ? \.br\ Redness.\.br\ ? \.br\ A nipple that looks pushed in (retracted), or that has changed position.\.br\ Feel for changes\.br\ Carefully feel your breasts for lumps and changes. It is best to do this self-exam while lying down. Follow these steps to feel each breast:\.br\ 1. \.br\ Place a pillow under the shoulder of one side of your body.\.br\ 2. \.br\ Place the arm of that side of your body behind your head.\.br\ 3. \.br\ Feel the breast of that side of your body using the hand of the opposite arm. To do this:\.br\ ? \.br\ Start in the nipple area and use the pads of your three middle fingers to make ?-inch (2 cm) overlapping circles.\.br\ ? \.br\ Use light, medium, and then firm pressure as you feel your breast, gently covering the entire breast area and armpit.\.br\ 4. \.br\ Continue the overlapping circles, moving downward over the breast until you feel your ribs below your breast.\.br\ 5. \.br\ Then, make circles with your fingers going upward until you reach your collarbone.\.br\ 6. \.br\ Next, make circles by moving outward across your breast and into your armpit area.\.br\ 7. \.br\ Squeeze the nipple. Check for discharge and lumps.\.br\ 8. \.br\ Repeat steps 1?7 to check your other breast.\.br\ 9. \.br\ Sit or fishing vessel deckhand the tub or shower.\.br\ 10. \.br\ With soapy water on your skin, feel each breast the same way you did when you were lying down.\.br\ Write down what you find\.br\ Writing down what you find can help you remember what to discuss with your health care provider. Write down:\.br\ ? \.br\ What is normal for each breast.\.br\ ? \.br\ Any changes that you find in each breast. These include:\.br\ ? \.br\ The kind of changes you find.\.br\ ? \.br\ Any pain or tenderness.\.br\ ? \.br\ Size and location of any lumps.\.br\ ? \.br\ Where you are in your menstrual cycle, if you are still getting your menstrual period (menstruating).\.br\ General tips\.br\ ? \.br\ If you are , the best time to examine your breasts is after a feeding or after using a breast pump.\.br\ ? \.br\ If you menstruate, the best time to examine your breasts is 5?7 days after your menstrual period. Breasts are generally lumpier during menstrual periods, and it may be more difficult to notice changes.\.br\ ? \.br\ With time and practice, you will become more familiar with the differences in your breasts and more comfortable with the exam.\.br\ Contact a health care provider if:\.br\ ? \.br\ You see a change in the shape or size of your breasts or nipples.\.br\ ? \.br\ You see a change in the skin of your breast or nipples, such as a reddened or scaly area.\.br\ ? \.br\ You have unusual discharge from your nipples.\.br\ ? \.br\ You find a new lump or thick area.\.br\ ? \.br\ You have breast pain.\.br\ ? \.br\ You have any concerns about your breast health.\.br\ Summary\.br\ ? \.br\ Breast self-awareness includes looking for physical changes in your breasts and feeling for any changes within your breasts.\.br\ ? \.br\ Breast self-awareness should be done in front of a mirror in a well-lit room.\.br\ ? \.br\ If you menstruate, the best time to examine your breasts is 5?7 days after your menstrual period.\.br\ ? \.br\ Tell your health care provider about any changes you notice in your breasts. Changes include changes in size, changes on the skin, pain or tenderness, or unusual fluid from your nipples.\.br\ This information is not intended to replace advice given to you by your health care provider. Make sure you discuss any questions you have with your health care provider.\.br\ Document Revised: 02/28/2022 Document Reviewed: 02/09/2022 Elsevier Patient Education ? 2022 [employer].br\ Fall Prevention in the Home, Adult\.br\ Falls can cause injuries and affect people of all ages. There are many simple things that you can do to make your home safe and to help prevent falls. Ask for help when making these changes, if needed.\.br\ What actions can I take to prevent falls?\.br\ [facility] CHEMISTRYOrdered By: SYSTEM SYSTEM on 12-05-2022 Albumin [Mass/Vol] 4.4 g/dL Normal 3.3 - 5.0 gm/dL [facility] Remisol Albumin/Globulin [Mass ratio] 1.6 {ratio} Normal 1.1 - 2.2 [facility] Remisol ALP [Catalytic activity/Vol] 56 [iU]/d Normal 21 - 98 Int._Unit/L [facility] Rem[facility] ALT No additional P-5'-P [Catalytic activity/Vol] 33 [iU]/d Normal 6 - 46 Int._Unit/L [facility] Anion gap [Moles/Vol] 11 mmol/L Normal 6 - 16 mEq/L [facility] AST [Catalytic activity/Vol] 40 [iU]/d Normal 5 - 43 Int._Unit/L [facility] Bilirubin [Mass/Vol] 0.6 mg/dL Normal 0.0 - 1.1 mg/dL [facility] Calcium [Mass/Vol] 9.7 mg/dL Normal 8.9 - 11.1 mg/dL [facility] Chloride [Moles/Vol] 108 mmol/L Normal 101 - 111 mmol/L [facility] Cholesterol [Mass/Vol] 193 mg/dL Normal 120 - 200 mg/dL [facility] Cholesterol in HDL [Mass/Vol] 39 mg/dL Invalid Interpretation Code [facility] Cholesterol in LDL [Mass/Vol] 113 mg/dL Normal <=129mg/dL [facility] Cholesterol in VLDL [Mass/Vol] 50 mg/dL High 7 - 40 mg/dL [facility] CO2 [Moles/Vol] 23 mmol/L Normal 21 - 31 mmol/L [facility] Creatinine [Mass/Vol] 0.7 mg/dL Normal 0.5 - 1.3 mg/dL [facility] GFR/1.73 sq M.predicted among non-blacks MDRD (S/P/Bld) [Vol rate/Area] 92 mL/min/1.73 m2 Normal >=59mL/min/1.73 m2 [facility] S Globulin (S) [Mass/Vol] 2.8 g/dL Normal 1.4 - 4.0 gm/dL [facility] Remisol Glucose [Mass/Vol] 92 mg/dL Normal 55 - 199 mg/dL [facility] Remisol Potassium [Moles/Vol] 4.0 mmol/L Normal 3.5 - 5.3 mmol/L [facility] Remisol Protein [Mass/Vol] 7.2 g/dL Normal 6.0 - 7.8 gm/dL [facility] Remisol Sodium [Moles/Vol] 138 mmol/L Normal 135 - 145 mmol/L [facility] Rem[facility] Triglyceride [Mass/Vol] 248 mg/dL High <=149mg/dL [facility] TSH Qn 3.37 m[IU]/L Normal 0.34 - 5.60 mcIU/mL [facility] C Remisol Urea nitrogen [Mass/Vol] 8 mg/dL Normal 5 - 21 mg/dL [facility] Remisol Urea nitrogen/Creatinin e [Mass ratio] 11 mg/mg Normal 10 - 20 [facility] Remisol CMPon 12-05-2022 Albumin [Mass/Vol] 4.4 g/dL Normal 3.3-5.0 [facility] Comment on above: Performed By: #### 2 [id number], [id number], 7810606, 68261950, [id number], [id number] ####[address] [address] Albumin/Globulin (S) [Mass conc ratio] 1.6 Normal 1.1-2.2 [facility] Comment on above: Performed By: #### 2 591310, 87379115, 5819269, 72299761, [id number], [id number] ####[address] [address] ALP [Catalytic activity/Vol] 56 Int._Unit/L Normal 21-98 [facility] Comment on above: Performed By: #### 2 744948, 31402308, 7606321, 53820329, [id number], [id number] ####[address] [address] ALT No additional P-5'-P [Catalytic activity/Vol] 33 Int._Unit/L Normal 6-46 [facility] Comment on above: Performed By: #### 2 221136, 36317635, 2689894, 02856712, [id number], [id number] ####[address] [address] Anion gap [Moles/Vol] 11 mmol/L Normal 6-16 [facility] Comment on above: Performed By: #### 2 121317, 89766489, 9260537, 92103277, [id number], [id number] ####[address] [address] AST [Catalytic activity/Vol] 40 Int._Unit/L Normal 5-43 [facility] Comment on above: Performed By: #### 2 759223, 58411650, 8645077, 81107028, [id number], [id number] ####[facility] [address] [place] [address] Bilirubin [Mass/Vol] 0.6 mg/dL Normal 0.0-1.1 [facility] Comment on above: Performed By: #### 2 808215, 23098585, 4191010, 84145673, [id number], [id number] ####[facility] [address] [place] [address] Calcium [Mass/Vol] 9.7 mg/dL Normal 8.9-11.1 [facility] Comment on above: Performed By: #### 2 131853, 16556073, 7535459, 34089515, [id number], [id number] ####[facility] [address] [place] [address] Chloride [Moles/Vol] 108 mmol/L Normal 101-111 [facility] Comment on above: Performed By: #### 2 188826, 78645698, 0835336, 18718863, [id number], [id number] ####[facility] [address] [place] [address] CO2 [Moles/Vol] 23 mmol/L Normal 21-31 [facility] Comment on above: Performed By: #### 2 198052, 39345591, 2172641, 81131284, [id number], [id number] ####[facility] [address] [place] [address] Creatinine [Mass/Vol] 0.7 mg/dL Normal 0.5-1.3 [facility] Comment on above: Performed By: #### 2 478674, 41917640, 1045848, 65615373, [id number], [id number] ####[facility] [address] [place] [address] Globulin (S) [Mass/Vol] 2.8 g/dL Normal 1.4-4.0 [facility] Comment on above: Performed By: #### 2 815357, 62464843, 0921971, 11090156, [id number], [id number] ####[facility] [address] [place] [address] Glucose [Mass/Vol] 92 mg/dL Normal 55-199 [facility] Comment on above: Result Comment: If t his glucose result represents a fasting glucose, interpretation should refer to the following reference range: 55-99 mg/dL Performed By: #### 2 256212, 22388328, 7255160, 46712247, [id number], [id number] ####[facility] [address] [place] [address] Potassium [Moles/Vol] 4.0 mmol/L Normal 3.5-5.3 [facility] Comment on above: Performed By: #### 2 519458, 80191113, 7036796, 04521749, [id number], [id number] ####[facility] [address] [place] [address] Protein [Mass/Vol] 7.2 g/dL Normal 6.0-7.8 [facility] Comment on above: Performed By: #### 2 586709, 86711477, 7605983, 58748721, [id number], [id number] ####[facility] [address] [place] [address] Sodium [Moles/Vol] 138 mmol/L Normal 135-145 [facility] Comment on above: Performed By: #### 2 189719, 51253704, 5870816, 99920256, 9103991282, [id number] ####[facility] [address] [place] [address] Urea nitrogen [Mass/Vol] 8 mg/dL Normal 5-21 [facility] Comment on above: Performed By: #### 2 169755, 14323027, 2923941, 67050970, [id number], [id number] ####[facility] [address] [place] [address] Urea nitrogen/Creatinin e [Mass ratio] 11 No Units Normal 10-20 [facility] Comment on above: Performed By: #### 2 618113, 09276450, 2987227, 93569012, [id number], [id number] ####[facility] [address] [place] [address] Family Medicine Office/Clini c Noteon 12-05-2022 Family Medicine Office/Clinic Note Chief Complaint Subsequent Medicare Wellness Visit Review of Systems PHQ Score Initial Depression Screen Score: 0 Physical Exam Vitals & Measurements HR: 66(Peripheral) BP: 112/74 SpO2: 94% HT: 161 cm HT: 63 in WT: 82 kg WT: 180.4 lb BMI: 31.63 Assessment/Plan 1. Annual visit for general adult medical examination without abnormal findings (Z00.00: Encounter for general adult medical examination without abnormal findings) The patient was given a customized and personalized print out of all the current AHRQ USPSTF?s recommendations for preventative services and all current CDC recommended immunizations, relevant risk recommendations and the following patient brochures were given. Reviewed Medicare preventative services checklist. CDC-Falls Prevention and home safety screening reviewed. Patient denies any falls in last 12 months, voices no worry about falling, exhibits no problems with sitting, standing, or ambulation. Pt voices understanding with keeping walk way area free of clutter to prevent tripping and/or falling. [place] Advance Directives reviewed, patient has POA/LW at home, encouraged to bring copy to office for scanning to chart. Patient denies any problems with ADL?s and Instrumental ADL?s. Cognitive screening completed with memory and clock face drawing, no deficits noted. Immunization Record reviewed with the patient. Discussed Shingrix vaccine with educational handout and availability. COVID vaccines have been administered, with 2 boosters, immunization record is up to date. Allergies and medications reviewed and up to date. Patient denies concerns with taking medication as prescribed, reviewed OTC medications with patient, medication list up to date. Blood tests were reviewed: Discussed what tests need to be updated. Labs were ordered, will have completed prior to next PCP visit. Will have labs completed with [facility]. Colonoscopy up to date, last result requested from [facility]. DEXA scan and Mammogram ordered and faxed to . Reviewed pain symptoms with patient: no pain at present. Reviewed all outside providers that patient follows. Last visit summary notes available in chart and/or have been requested. AWV has been scheduled, 12/04/2023 Medicare provides yearly screening for alcohol and depression concerns. This is completed during our Medicare Wellness visit for those who do not have a current diagnosis of depression or concerns with alcohol use. I spent a total of 17 minutes on this date of service which included preparing to see the patient, face to face patient care, completing clinical documentation, obtaining and/or reviewing separately obtained history, counseling and educating the patient with handouts. Explanations were provided with reviewing questionnaires. AUDIT risk assessment screening completed, risk score 1, with patient denying concerns with use. Completed PHQ-2 risk assessment for depression with risk score 0, negative findings. Patient has been reminded to notify the provider if there would be a change or concerns with symptoms with fear, unable to sleep, worrying too much or feeling down and/or sad with lost of interest with daily activities. Will continue to monitor with screening yearly during Medicare wellness visits. 2. Screening for ischemic heart disease (Z13.6: Encounter for screening for cardiovascular disorders) Patient to have labs drawn for lipid panel. Unknown date of last draw. Will follow up with PCP at next visit or as needed. 3. Fatigue (R53.83: Other fatigue) Patient taking Levothyroxine 100 mcg daily as directed. Denies concerns with cold intolerance, constipation, slow growing hair or hair thinning. Patient states she is fatigue a lot and has poor appetite. Follows up with PCP during office visits with blood work and medication management. TSH lab ordered. 4. Other problems related to lifestyle (Z72.89: Other problems related to lifestyle) Information provided and discussed with CDC recommendation that everyone born from [birth year]23[birth year]2913 get tested for Hepatitis C. This is also referred to as baby boomers and are 5 times more likely to be at risk. Transmission of Hepatitis C was at its highest. Medicare does cover a once in a lifetime testing if a patient is non-symptomatic. Blood work has been ordered, will review results with PCP. 5. Abdominal pain (R10.9: Unspecified abdominal pain) Patient states abdominal pain has improved. Abdominal ultra sound reviewed per Sharlene Shah, advised patient of results. No new medications or treatment at this time. Patient to notify office if symptoms become worse. Patient will follow up with PCP as needed. 6. Urinary urgency (R39.15: Urgency of urination) Patient follows with urology, Dr. Retana. Patient has discussed possible Botox treatments. Patient denies any issues or concerns at this time. 7. Ovarian failure (E28.39: Other primary ovarian failure) Reviewed recommended bone mineral density testing for women who are 65 years of age or older. Edu (more content not included)... Normal [facility] Comment on above: Result Comment: Elec tronically Signed By: Sharlene Correa\.br\Date and Time Signed: 12/05/22 14:23 EDT\.br\Electronically Co-Signed By: Oracio White\.br\Date and Time Co-Signed: 12/05/22 11:28 EDT Lipid Panelon 12-05-2022 Cholesterol [Mass/Vol] 193 mg/dL Normal 120-200 [facility] Comment on above: Performed By: #### 2 [id number], [id number], [id number], [id number], [id number], [id number] ####[facility] [address] [place] [address] Cholesterol in HDL [Mass/Vol] 39 mg/dL Invalid Interpretation Code [facility] Comment on above: Result Comment: HDL > or equal to 60 mg/dL: Low cardiovascular risk HDL < 40 mg/dL : High cardiovascular risk Performed By: #### 2 [id number], [id number], [id number], [id number], [id number], [id number] ####[facility] [address] [place] [address] Cholesterol in LDL [Mass/Vol] 113 mg/dL Normal <=129 [facility] Comment on above: Performed By: #### 2 [id number], [id number], [id number], [id number], [id number], [id number] ####[facility] [address] [place] [address] Cholesterol in VLDL [Mass/Vol] 50 mg/dL High 7-40 [facility] Comment on above: Performed By: #### 2 [id number], [id number], [id number], [id number], [id number], [id number] ####[facility] [address] [place] [address] Triglyceride [Mass/Vol] 248 mg/dL High <=149 [facility] Comment on above: Performed By: #### 2 [id number], [id number], [id number], [id number], [id number], [id number] ####[facility] [address] [place] [address] Patient Education 12-06-19 23 Patient Education Caregiving Fall Prevention in the Home, Adult Falls can cause injuries and affect people of all ages. There are many simple things that you can do to make your home safe and to help prevent falls. Ask for help when making these changes, if needed. What actions can I take to prevent falls? General instructions ? Use good lighting in all rooms. Replace any light bulbs that burn out, turn on lights if it is dark, and use night-lights. ? Place frequently used items in odvm-jp-lvojw places. Lower the shelves around your home if necessary. ? Set up furniture so that there are clear paths around it. Avoid moving your furniture around. ? Remove throw rugs and other tripping hazards from the floor. ? Avoid walking on wet floors. ? Fix any uneven floor surfaces. ? Add color or contrast paint or tape to grab bars and handrails in your home. Place contrasting color strips on the first and last steps of staircases. ? When you use a stepladder, make sure that it is completely opened and that the sides and supports are firmly locked. Have someone hold the ladder while you are using it. Do not climb a closed stepladder. ? Know where your pets are when moving through your home. What can I do in the bathroom? ? Keep the floor dry. Immediately clean up any water that is on the floor. ? Remove soap buildup in the tub or shower regularly. ? Use nonskid mats or decals on the floor of the tub or shower. ? Attach bath mats securely with double-sided, nonslip rug tape. ? If you need to sit down while you are in the shower, use a plastic, nonslip stool. ? Install grab bars by the toilet and in the tub and shower. Do not use towel bars as grab bars. What can I do in the bedroom? ? Make sure that a bedside light is easy to reach. ? Do not use oversized bedding that reaches the floor. ? Have a firm chair that has side arms to use for getting dressed. What can I do in the kitchen? ? Clean up any spills right away. ? If you need to reach for something above you, use a sturdy step stool that has a grab bar. ? Keep electrical cables out of the way. ? Do not use floor barbadian or wax that makes floors slippery. If you must use wax, make sure that it is non-skid floor wax. What can I do with my stairs? ? Do not leave any items on the stairs. ? Make sure that you have a light switch at the top and the bottom of the stairs. Have them installed if you do not have them. ? Make sure that there are handrails on both sides of the stairs. Fix handrails that are broken or loose. Make sure that handrails are as long as the staircases. ? Install non-slip stair treads on all stairs in your home. ? Avoid having throw rugs at the top or bottom of stairs, or secure the rugs with carpet tape to prevent them from moving. ? Choose a carpet design that does not hide the edge of steps on the stairs. ? Check any carpeting to make sure that it is firmly attached to the stairs. Fix any carpet that is loose or worn. What can I do on the outside of my home? ? Use bright outdoor lighting. ? Regularly repair the edges of walkways and driveways and fix any cracks. ? Remove high doorway thresholds. ? Trim any shrubbery on the main path into your home. ? Regularly check that handrails are securely fastened and in good repair. Both sides of all steps should have handrails. ? Install guardrails along the edges of any raised decks or porches. ? Clear walkways of debris and clutter, including tools and rocks. ? Have leaves, snow, and ice cleared regularly. ? Use sand or salt on walkways during winter months. ? In the garage, clean up any spills right away, including grease or oil spills. What other actions can I take? ? Wear closed-toe shoes that fit well and support your feet. Wear shoes that have rubber soles or low heels. ? Use mobility aids as needed, such as canes, walkers, scooters, and crutches. ? Review your medicines with your health care provider. Some medicines can cause dizziness or changes in blood pressure, which increase your risk of falling. Talk with your health care provider about other ways that you can decrease your risk of falls. This may include working with a physical therapist or applications trainer to improve your strength, balance, and endurance. Where to find more information ? Centers for Disease Control and Prevention, [place]: www.cdc.gov ? National [place] on Aging: www.lyla.nih.gov Contact a health care provider if: ? You are afraid of falling at home. ? You feel weak, drowsy, or dizzy at home. ? You fall at home. Summary ? There are many simple things that you can do to make your home safe and to help prevent falls. ? Ways to make your home safe include removing tripping hazards and installing grab bars in the bathroom. ? Ask for help when making these changes in your home. This information is not intended to replace advice given to you by your health ca (more content not included)... Normal [facility] Screenson 12-05-2022 Screens [id number] #[id number] Normal [facility] TSH With T4fr Reflexon 12-05 TSH Qn 3.37 m[IU]/L Normal 0.34-5.60 [facility] Comment on above: Performed By: #### 2 [id number], [id number], [id number], [id number], [id number], [id number] ####[facility] [address] [place] [address] eGFRon 12-05-2022 GFR/1.73 sq M.predicted among non-blacks MDRD (S/P/Bld) [Vol rate/Area] 92 mL/min/1.73 m2 Normal >=59 [facility] Comment on above: Order Comment: Order added by Discern Expert. Result Comment: Temporary Office Assistant angelo kidney disease could be indicated at eGFR's of less than 60 mL/min/1.73m2. Kidney failure is indicated at less than 15 mL/min/1.73m2. Performed By: #### 2 886652, [id number], [id number], [id number], [id number], [id number] ####[facility] [address] [place] [place] [id number] CBC AUTO DIFFon 08-16-2021 BASO # 0.1 103/ul Normal 0.0-0.1 [facility] Comment on above: Performed By: #### C BC #### [facility] [address] [address] [address] Yodit Campbell Basophils/100 WBC (Bld) 0.7 % Normal 0.2-2.0 [facility] Comment on above: Performed By: #### C BC #### [facility] [address] [place] [address] Dr. Yodit Campbell EO # 0.2 103/ul Normal 0.0-0.7 [facility] Comment on above: Performed By: #### C BC #### [facility] [address] [place] [address] Dr. Yodit Campbell Eosinophils/100 WBC (Bld) 2.2 % Normal 0.9-7.0 [facility] Comment on above: Performed By: #### C BC #### [facility] [address] [place] [address] Dr. Yodit Campbell Erythrocyte distribution width (RBC) [Ratio] 12.3 % Normal 11.0-15.0 [facility] Comment on above: Performed By: #### C BC #### [facility] [address] [place] [address] Dr. Yodit Campbell Hematocrit (Bld) [Volume fraction] 42.1 % Normal 36.0-48.0 [facility] Comment on above: Performed By: #### C BC #### [facility] [address] [place] [address] Dr. Yodit Campbell Hemoglobin (Bld) [Mass/Vol] 13.7 g/dL Normal 12.0-16.0 [facility] Comment on above: Performed By: #### C BC #### [facility] [address] [place] [address] Dr. Yodit Campbell IG # 0.02 10e3/ul Normal 0.00-0.03 [facility] Comment on above: Performed By: #### C BC #### [facility] [address] [place] [address] Dr. Yodit Campbell IG % 0.3 % Normal 0.0-0.5 [facility] Comment on above: Performed By: #### C BC #### [facility] [address] [place] [address] Dr. Yodit Campbell LYMPH # 2.4 103/ul Normal 1.2-3.8 [facility] Comment on above: Performed By: #### C BC #### [facility] [address] [place] [address] Dr. Yodit Campbell Lymphocytes/100 WBC (Bld) 32.8 % Normal 20.5-60.0 [facility] Comment on above: Performed By: #### C BC #### [facility] [address] [place] [address] Dr. Yodit Campbell MANUAL DIFF REQ NO Normal [facility] Comment on above: Performed By: #### C BC #### [facility] [address] [place] [address] Dr. Yodit Campbell MCH (RBC) [Entitic mass] 29.1 pg Normal 26.7-34.0 [facility] Comment on above: Performed By: #### C BC #### [facility] [address] [place] [address] Dr. Yodit Campbell MCHC (RBC) [Mass/Vol] 32.5 g/dL Normal 29.9-35.2 [facility] Comment on above: Performed By: #### C BC #### [facility] [address] [place] [address] Dr. Yodit Campbell MCV (RBC) [Entitic vol] 89.4 fL Normal 81.0-99.0 [facility] Comment on above: Performed By: #### C BC #### [facility] [address] [place] [address] Dr. Yodit Campbell MONO # 0.6 103/ul Normal 0.3-0.8 [facility] Comment on above: Performed By: #### C BC #### [facility] [address] [place] [address] Dr. Yodit Campbell Monocytes/100 WBC (Bld) 8.6 % Normal 1.7-12.0 [facility] Comment on above: Performed By: #### C BC #### [facility] [address] [place] [address] Dr. Yodit Campbell NEUT # 4.1 103/ul Normal 1.4-6.5 [facility] Comment on above: Performed By: #### C BC #### [facility] [address] [place] [address] Dr. Yodit Campbell Neutrophils/100 WBC (Bld) 55.4 % Normal 43.0-75.0 [facility] Comment on above: Performed By: #### C BC #### [facility] [address] [place] [address] Dr. Yodit Campbell Platelet mean volume (Bld) [Entitic vol] 9.8 fL Normal 9.5-13.5 [facility] Comment on above: Performed By: #### C BC #### [facility] [address] [place] [address] Dr. Yodit Campbell PLT 241 103/ul Normal 150-450 [facility] Comment on above: Performed By: #### C BC #### [facility] [address] [place] [address] Dr. Yodit Campbell RBC 4.71 106/ul Normal 4.20-5.40 [facility] Comment on above: Performed By: #### C BC #### [facility] [address] [place] [address] Dr. Yodit Campbell WBC 7.4 103/ul Normal 4.0-11.0 [facility] Comment on above: Performed By: #### C BC #### [facility] [address] [place] [address] Dr. Yodit Campbell FREE T3on 08-16-2021 FREE T3 2.63 pg/mlL Normal 2.18-3.98 [facility] Comment on above: Performed By: #### F T3, TSH, CMP #### [facility] [address] [place] [address] Dr. Yodit Campbell FREE T4on 08-16-2021 Free T4 [Mass/Vol] 0.88 ng/dL Normal 0.76-1.46 [facility] Comment on above: Performed By: #### F T4 #### [facility] [address] [place] [address] Dr. Yodit Campbell PROF 14(COMP METB)on 022 Albumin [Mass/Vol] 4.3 g/dL Normal 3.4-5.0 [facility] Comment on above: Performed By: #### F T3, TSH, CMP #### [facility] [address] [place] [address] Dr. Yodit Campbell Albumin/Globulin [Mass ratio] 1.2 {ratio} Normal [facility] Comment on above: Performed By: #### F T3, TSH, CMP #### [facility] [address] [place] [address] Dr. Yodit Campbell ALP [Catalytic activity/Vol] 71 U/L Normal 46-116 [facility] Comment on above: Performed By: #### F T3, TSH, CMP #### [facility] [address] [place] [address] Dr. Yodit Campbell ALT [Catalytic activity/Vol] 52 U/L Normal 14-59 [facility] Comment on above: Performed By: #### F T3, TSH, CMP #### [facility] [address] [place] [address] Dr. Yodit Campbell Anion gap [Moles/Vol] 11.5 mmol/L Normal [facility] Comment on above: Performed By: #### F T3, TSH, CMP #### [facility] [address] [place] [address] Dr. Yodit Campbell AST [Catalytic activity/Vol] 39 U/L Critically high 15-37 [facility] Comment on above: Performed By: #### F T3, TSH, CMP #### [facility] [address] [place] [address] Dr. Yodit Campbell Bilirubin [Mass/Vol] 0.4 mg/dL Normal 0.2-1.0 [facility] Comment on above: Performed By: #### F T3, TSH, CMP #### [facility] [address] [address] [address] Yodit Campbell Calcium [Mass/Vol] 8.9 mg/dL Normal 8.5-10.1 [facility] Comment on above: Performed By: #### F T3, TSH, CMP #### [facility] [address] [place] [address] Dr. Yodit Campbell Chloride [Moles/Vol] 102 mmol/L Normal 98-107 [facility] Comment on above: Performed By: #### F T3, TSH, CMP #### [facility] [address] [place] [address] Dr. Yodit Campbell CO2 [Moles/Vol] 28.4 mmol/L Normal 21.0-32.0 [facility] Comment on above: Performed By: #### F T3, TSH, CMP #### [facility] [address] [place] [address] Dr. Yodit Campbell Creatinine [Mass/Vol] 0.67 mg/dL Normal 0.55-1.02 [facility] Comment on above: Performed By: #### F T3, TSH, CMP #### [facility] [address] [place] [address] Dr. Yodit Campbell EGFR-AF SOMALI >60 Normal >=60 [facility] Comment on above: Performed By: #### F T3, TSH, CMP #### [facility] [address] [place] [address] Dr. Yodit Campbell EGFR-NON AF SOMALI >60 Normal >=60 [facility] Comment on above: Performed By: #### F T3, TSH, CMP #### [facility] [address] [place] [address] Dr. Yodit Campbell Globulin (S) [Mass/Vol] 3.5 g/dL Normal [facility] Comment on above: Performed By: #### F T3, TSH, CMP #### [facility] [address] [address] [address] Yodit Campbell Glucose [Mass/Vol] 87 mg/dL Normal 74-106 [facility] Comment on above: Performed By: #### F T3, TSH, CMP #### [facility] [address] [place] [address] Dr. Yodit Campbell Potassium [Moles/Vol] 3.9 mmol/L Normal 3.5-5.1 [facility] Comment on above: Performed By: #### F T3, TSH, CMP #### [facility] [address] [place] [address] Dr. Yodit Campbell Protein [Mass/Vol] 7.8 g/dL Normal 6.1-8.2 [facility] Comment on above: Performed By: #### F T3, TSH, CMP #### [facility] [address] [place] [address] Dr. Yodit Campbell Sodium [Moles/Vol] 138 mmol/L Normal 136-145 [facility] Comment on above: Performed By: #### F T3, TSH, CMP #### [facility] [address] [place] [address] Dr. Yodit Campbell Urea nitrogen [Mass/Vol] 10.0 mg/dL Normal 7.0-18.0 [facility] Comment on above: Performed By: #### F T3, TSH, CMP #### [facility] [address] [place] [address] Dr. Yodit Campbell Urea nitrogen/Creatinin e [Mass ratio] 14.9 mg/mg Normal [facility] Comment on above: Performed By: #### F T3, TSH, CMP #### [facility] [address] [place] [address] Dr. Yodit Campbell TSHon 08-16-2021 TSH 2.869 uIU/mL Normal 0.470-4.680 [facility] Comment on above: Performed By: #### F T3, TSH, CMP #### [facility] [address] [place] [address] Dr. Yodit Campbell TSH RANGE SEE BELOW Normal [facility] Comment on above: Result Comment: <0.3 4 UIU/ml HYPERTHYROID 0.34-5.60 UIU/ml EUTHYROID >5.60 UIU/ml HYPOTHYROID Performed By: #### F T3, TSH, CMP #### [facility] [address] [place] [address] Dr. Yodit Campbell *MRSA/MSSA DNA NASALon 03-28 *MRSA/MSSA DNA NASAL Clinical Report: (D) Specimen: NASAL SWAB Collected: 03/28/2019 11:57 Status: Final Last Updated: 03/28/2019 21:28 MSSA DNA (Final) Negative MRSA DNA (Final) Negative Normal [facility] Comment on above: Performed By: #### 3 1595 #### [address] POC GLUCOSE LABon 03-28-2019 Glucose [Mass/Vol] 98 mg/dL Normal 70-100 [facility] Comment on above: Performed By: #### 8 [id number] #### [address] ABDOMEN AND PELVIS WO CON TRASTon 01-30-2019 CT ABDOMEN AND PELVIS WO CONTRAST [facility] Department of Radiology [address] [place] [id number] Patient Name: FELISHA MONTANO : 1950 Sex: F Age: Race: White Pt. Location: 85 Patient Status: D Ordered Date: 01/21/2019 11:10:00 AM Completed Date: 01/30/2019 05:56 PM Requesting Provider: MARIAMA RUFFIN Attending Provider: MARIAMA RUFFIN Report Copy To: CEDRIC VINCENT Signs & Symptoms: K43.2 Incisional hernia without obstruction or gangrene I10 History: [place] oral contrast medicare no pc required. cpt code 49536 clm Comments: with oral contrast Exam: CT ABDOMEN AND PELVIS WO CONTRAST CT ABDOMEN AND PELVIS WO CONTRAST 01/30/2019 5:56 PM EDT SIGNS AND SYMPTOMS: K43.2 Incisional hernia without obstruction or gangrene I10 TECHNOLOGIST COMMENTS: diarrhea x 1 year QUESTION FOR THE RADIOLOGIST: with oral contrast PROTOCOL: Axial CT images of the abdomen and pelvis were obtained without IV contrast. TECHNIQUE: Multidetector CT axial slices of the abdomen and pelvis without IV contrast. Multiplanar reformats were performed and viewed on a separate workstation and reviewed to further define anatomy and possible pathology. COMPARISON: None. FINDINGS: The lung bases are unremarkable. The liver, spleen, gallbladder, adrenals, pancreas and kidneys appear unremarkable. There is an umbilical hernia present with unaffected small bowel present within millimeters of the skin surface. The stomach and small bowel have normal caliber. A wire anastomotic suture line is noted in the sigmoid. The uterus is absent. The bladder is moderately distended with urine. No free and prompt peritoneal air or free fluid is noted. The aorta and retroperitoneum are unremarkable. Disc space narrowing at L5-S1 is noted. Diffuse osteopenia is noted in the vertebral bodies. IMPRESSION: * Umbilical hernia containing unaffected small bowel which approaches to within 1 or 2 mm of the skin surface. * Sigmoid resection and anastomosis. * Hysterectomy. Electronically signed by:Sindy Burkett. Transcribed by: [email or web address], User Resident: Electronically Signed by: SINDY BURKETT @ 01/31/2019 07:45 AM Normal [facility] Comment on above: Order Comment: with oral contrast Vital Signs Date Time Vital Sign Value Performing Clinician Facility 11-28-2023 08:30-0400 Blood Pressure Location Kera Retana [facility] 11-28-2023 08:30-0400 Diastolic blood pressure 78 mm[Hg] Kera Lue [facility] 11-28-2023 08:30-0400 Heart rate 79 /min Kera Lue [facility] 11-28-2023 08:30-0400 Respiratory rate 16 /min Kera Lue [facility] 11-28-2023 08:30-0400 Systolic blood pressure 132 mm[Hg] Kera Lue [facility] 08-21-2023 14:34-0400 Body temperature 98.24 [degF] YOLI PARAS [facility] 08-21-2023 14:34-0400 Diastolic blood pressure 66 mm[Hg] YOLI PARAS [facility] 08-21-2023 14:34-0400 Heart rate 63 /min YOLI PARAS [facility] 08-21-2023 14:34-0400 Respiratory rate 19 /min YOLI PARAS [facility] 08-21-2023 14:34-0400 Systolic blood pressure 129 mm[Hg] YOLI PARAS [facility] 02-21-2023 10:17-0400 Blood Pressure Location Ekra Lue [facility] 02-21-2023 10:17-0400 Diastolic blood pressure 65 mm[Hg] Kera Lue [facility] 02-21-2023 10:17-0400 Heart rate 67 /min Kera Lue [facility] 02-21-2023 10:17-0400 Respiratory rate 16 /min Kera Lue [facility] 02-21-2023 10:17-0400 Systolic blood pressure 130 mm[Hg] Kera Lue [facility] 08-25-2022 10:53-0400 Blood Pressure Location Kera Lue [facility] 08-25-2022 10:53-0400 Diastolic blood pressure 72 mm[Hg] Kera Lue [facility] 08-25-2022 10:53-0400 Heart rate 72 /min Kera Lue [facility] 08-25-2022 10:53-0400 Systolic blood pressure 119 mm[Hg] Kera Lue [facility] Encounters Encounter Date Encounter Type Care Provider Facility Start: 06-04-2024 ambulatory Kera M. Lue Facility:[facility] Start: 12-04-2023 ambulatory Sharleneshola Shah Facility: [facility] [place] Start: 11-28-2023 End: 11-28-2023 ambulatory Kera M. Lue Facility:[facility] [place] Start: 11-28-2023 End: 11-28-2023 Patient encounter procedure [facility] Start: 11-16-2023 End: 11-16-2023 ambulatory TRENTON STACK Facility:[facility] [place] Start: 10-31-2023 End: 10-31-2023 ambulatory [facility] Start: 09-20-2023 End: 09-20-2023 ambulatory [facility] Start: 09-20-2023 End: 09-20-2023 ambulatory [facility] Start: 09-10-2023 End: 09-10-2023 ambulatory RAMSEY HILARIO Not Available Start: 08-21-2023 End: 08-21-2023 ambulatory AMERICA CRAIN Facility:[facility] Start: 08-21-2023 End: 08-21-2023 Patient encounter procedure YOLI CRAIN [facility] Start: 08-17-2023 End: 08-17-2023 ambulatory Barbara Agarwal Mabry Facility[facility] Start: 08-17-2023 End: 08-17-2023 Patient encounter procedure Barbara BergNorma Mabry [facility] Start: 08-07-2023 End: 08-07-2023 ambulatory [facility] Start: 07-23-2023 End: 07-23-2023 Lab Drop off Sharlene L Genna [facility] Start: 07-23-2023 End: 07-23-2023 ambulatory Sharlene L Genna Facility:[facility] Start: 07-10-2023 End: 07-10-2023 ambulatory Sharlene L Genna Facility:[facility] Rosetta peck Start: 06-16-2023 Evaluation and management of inpatient DAVINA PINO [facility] Start: 06-15-2023 End: 06-17-2023 Evaluation and management of inpatient CLARA CHARLES [facility] Start: 05-23-2023 End: 05-23-2023 ambulatory Kera Retana Facility: [facility] Start: 05-22-2023 End: 05-23-2023 ambulatory JENAE GARNICA Not Available Start: 05-14-2023 End: 05-14-2023 ambulatory [facility] L [facility] Start: 05-01-2023 End: 05-01-2023 ambulatory Sharlene L Genna Facility:[facility] Start: 05-01-2023 End: 05-01-2023 Patient encounter procedure Barbara Hernandezd [facility] Start: 04-09-2023 End: 04-09-2023 ambulatory [facility]arlene L Genna [facility] Start: 02-21-2023 End: 02-21-2023 [facility]ulatory [facility] Start: 02-21-2023 End: 02-21-2023 Patient encounter procedure [facility]era Retana [facility] Start: 12-15-2022 End: 12-15-2022 ambulatory Kera Retana [facility] Start: 12-15-2022 End: 12-15-2022 Patient encounter procedure Kera Retana [facility] Start: 12-05-2022 End: 12-05-2022 Lab Drop off Sharlene L Genna [facility] Start: 12-05-2022 End: 12-05-2022 ambulatory Sharlene L Genna Facility:[facility] Start: 08-25-2022 End: 08-25-2022 Patient encounter procedure Kera Retana [facility] Start: 10-19-2021 End: 10-20-[address] CEDRIC VINCENT Facility:[facility] Start: 08-16-2021 End: 08-17-[address] CEDRIC VINCENT Facility:[facility] Start: 03-28-2019 End: 03-29-2019 Patient encounter procedure MARIAMA RUFFIN Facility:[facility] Procedures Date Procedure Procedure Detail Performing Clinician Start: 09-12-2022 Cystoscopy Sharlene Yooa b Appendectomy Kera Lue Colonoscopy Kera Lue Hernia of abdominal cavity (disorder) Kera Lue Hysterectomy Kera Lue Immunizations Immunization Date Immunization Notes Care Provider Prabhjot [facility] 02-16-2023 pneumococcal 20-daniele nt conjugate vaccine Sharlene Genna [facility] 02-16-2023 tetanus toxoid, redu palmer diphtheria toxoid, and acellular pertussis vaccine, adsorbed Sharlene Genna [facility] 02-16-2023 zoster vaccine recombinant Sharlene Genna [facility] 02-13-2023 influenza virus vaccine, unspecified formulation Sharlene Genna [facility] 01-04-2022 influenza virus vaccine, unspecified formulation Kera Lue [facility] 01-04-2022 SARS-CoV-2 (COVID-19 ) [id number] Kera Lue [facility] 03-24-2021 SARS-CoV-2 (COVID-19 ) mRNA BNT-162b2 vax Kera Lue [facility] 03-14-2021 influenza virus vaccine, unspecified formulation Kera Lue [facility] 07-06-2020 SARS-CoV-2 (COVID-19 ) mRNA BNT-162b2 vax Kera Lue [facility] Comment on above: Result Comment: 2022: [id number] 06-15-2020 SARS-CoV-2 (COVID-19 ) mRNA BNT-162b2 vax Kera Lue [facility] Comment on above: Result Comment: 2022: [id number] 01-24-2020 influenza virus vaccine, unspecified formulation Kera Lue [facility] 01-17-2019 influenza virus vaccine, unspecified formulation Kera Lue [facility] 01-17-2019 pneumococcal conjuga te vaccine, 13 valent Kera Lue [facility] 03-27-2018 influenza virus vaccine, unspecified formulation Kera Lue [facility] Payers Date Payer Category Payer Medicare [id number] 1958 Medicare [id number] 1958 Unknown [id number] 1950 Unknown [id number] 2.16.8 40.1.801604.3.579.2.647 1950 Unknown [id number] 2.16.84 0.1.679988.3.579.2.593 1950 Unknown [id number] 2.16.84 0.1.634816.3.579.2.593 1950 Unknown [id number] 2.16.84 0.1.938467.3.579.2.1259 1950 Unknown [id number] 2.16.84 0.1.340037.3.579.2.1259 1950 Unknown [id number] 2.16.8 40.1.671050.3.579.2.727 1950 Unknown [id number] 2.16.8 40.1.346014.3.579.2.727 1950 Unknown [id number] 2.16.8 40.1.084435.3.579.2.727 1950 Unknown [id number] 2.16.8 40.1.532787.3.579.2.727 1951 Unknown [id number] 2.16.8 40.1.312487.3.579.2.727 1950 Unknown [id number] 2.16.8 40.1.149974.3.579.2.727 1951 Unknown [id number] 2.16.8 40.1.761761.3.579.2.727 1951 Unknown [id number] 2.16.8 40.1.144011.3.579.2.727 1951 Unknown [id number] 2.16.8 40.1.221294.3.579.2.727 1950 Unknown [id number] 2.16.8 40.1.209986.3.579.2.727 1950 Unknown [id number] 2.16.8 40.1.040847.3.579.2.727 1950 Unknown [id number] 2.16.8 40.1.073870.3.579.2.727 1950 Unknown [id number] 2.16.8 40.1.003927.3.579.2.727 1950 Unknown [id number] 2.16.8 40.1.664885.3.579.2.72 1950 Unknown [id number] 2.16.8 40.1.597161.3.579.2.727 1950 Unknown [id number] 2.16.8 40.1.227760.3.579.2.727 1950 Unknown [id number] 2.16.8 40.1.811532.3.579.2.727 1950 Unknown [id number] 2.16.8 40.1.743333.3.579.2.727 Medicare [id number] Social History Date Type Detail Facility Start: 08-25-2022 End: 11-28-2023 Tobacco smoking status Never smoked tobacco (finding) [facility] Comment on above: Patient never a smok er Tobacco smoking status Never [facility] Comment on above: Patient never a smok er Sex Assigned At Female [facility] Functional Status Date Assessment Result Facility 11-28-2023 Functional Status N/A [facility] 08-21-2023 Functional Status N/A [facility] 02-21-2023 Functional Status No [facility] 08-25-2022 Functional Status N/A [facility] Clinical Notes 10-19-2021 to 11-28-2023 Note Date & Type Note Facility 11-28-2023 Hospital Discharge instructions Patient Education 11/28/2023 09:14:08 Urethral Stricture Urethral Stricture Urethral stricture is narrowing of the tube (urethra) that carries urine from the bladder out of the body. The urethra can become narrow due to scar tissue from an injury or infection. This can make it difficult to pass urine. In women, the urethra opens above the vaginal opening. In men, the urethra opens at the tip of the penis, and the urethra is much longer than it is in women. Because of the length of the male urethra, urethral stricture is much more common in men. This condition is treated with surgery. What are the causes? In both men and women, common causes of urethral stricture include: Urinary tract infection (UTI). Sexually transmitted infection (STI). Use of a tube placed into the urethra to drain urine from the bladder (urinary catheter). Urinary tract surgery. In men, common causes of urethral stricture include: A severe injury to the pelvis. Prostate surgery. Injury to the penis. In many cases, the cause of urethral stricture is not known. What increases the risk? You are more likely to develop this condition if you: Are male. Men who have had prostate surgery are at risk of developing this condition. Use a urinary catheter. Have had urinary tract surgery. What are the signs or symptoms? The main symptom of this condition is difficulty passing urine. This may cause decreased urine flow, dribbling, or spraying of urine. Other symptom of this condition may include: Frequent UTIs. Blood in the urine. Pain when urinating. Swelling of the penis in men. Inability to pass urine (urinary obstruction). How is this diagnosed? This condition may be diagnosed based on: Your medical history and a physical exam. Urine tests to check for infection or bleeding. X-rays. Ultrasound. Retrograde urethrogram. This is a type of test in which dye is injected into the urethra and then an X-ray is taken. Urethroscopy. This is when a thin tube with a light and camera on the end (urethroscope) is used to look at the urethra. How is this treated? This condition is treated with surgery. The type of surgery that you have depends on the severity of your condition. You may have: Urethral dilation. In this procedure, the narrow part of the urethra is stretched open (dilated) with dilating instruments or a small balloon. Urethrotomy. In this procedure, a urethroscope is placed into the urethra, and the narrow part of the urethra is cut open with a surgical blade inserted through the urethroscope. Open surgery. In this procedure, an incision is made in the urethra, the narrow part is removed, and the urethra is reconstructed. Follow these instructions at home: Take pnth-mvn-mjrbqeq and prescription medicines only as told by your health care provider. If you were prescribed an antibiotic medicine, take it as told by your health care provider. Do not stop taking the antibiotic even if you start to feel better. Drink enough fluid to keep your urine pale yellow. Keep all follow-up visits as told by your health care provider. This is important. Contact a health care provider if: You have signs of a urinary tract infection, such as: ?Frequent urination or passing small amounts of urine frequently. ?Needing to urinate urgently. ?Pain or burning with urination. ?Urine that smells bad or unusual. ?Cloudy urine. ?Pain in the lower abdomen or back. ?Trouble urinating. ?Blood in the urine. ?Vomiting or being less hungry than normal. ?Diarrhea or abdominal pain. ?Vaginal discharge, if you are female. Your symptoms are getting worse instead of better. Get help right away if: You cannot pass urine. You have a fever. You have swelling, bruising, or discoloration of your genital area. This includes the penis, scrotum, and inner thighs for men, and the outer genital organs (vulva) and inner thighs for women. You develop swelling in your legs. You have difficulty breathing. Summary Urethral stricture is narrowing of the tube (urethra) that carries urine from the bladder out of the body. The urethra can become narrow due to scar tissue from an injury or infection. This condition can make it difficult to pass urine. This condition is treated with surgery. The type of surgery that you have depends on the severity of your condition. Contact a health care provider if your symptoms get worse or you have signs of a urinary tract infection. This information is not intended to replace advice given to you by your health care provider. Make sure you discuss any questions you have with your health care provider. Document Revised: 02/14/2022 Document Reviewed: 02/14/2022 [employer] Patient Education 2022 [employer]. Follow Up Care 08/21/2023 15:18:29 With:Mazin PRYOR, MELINDA Acosta, URO Address: [address] [place] [address]- [phone] When: Unknown Comments:6 mos (no labs) [facility] 11-28-2023 Note Patient Education Urology Urethral Stricture Urethral stricture is narrowing of the tube (urethra) that carries urine from the bladder out of the body. The urethra can become narrow due to scar tissue from an injury or infection. This can make it difficult to pass urine. In women, the urethra opens above the vaginal opening. In men, the urethra opens at the tip of the penis, and the urethra is much longer than it is in women. Because of the length of the male urethra, urethral stricture is much more common in men. This condition is treated with surgery. What are the causes? In both men and women, common causes of urethral stricture include: ? Urinary tract infection (UTI). ? Sexually transmitted infection (STI). ? Use of a tube placed into the urethra to drain urine from the bladder (urinary catheter). ? Urinary tract surgery. In men, common causes of urethral stricture include: ? A severe injury to the pelvis. ? Prostate surgery. ? Injury to the penis. In many cases, the cause of urethral stricture is not known. What increases the risk? You are more likely to develop this condition if you: ? Are male. Men who have had prostate surgery are at risk of developing this condition. ? Use a urinary catheter. ? Have had urinary tract surgery. What are the signs or symptoms? The main symptom of this condition is difficulty passing urine. This may cause decreased urine flow, dribbling, or spraying of urine. Other symptom of this condition may include: ? Frequent UTIs. ? Blood in the urine. ? Pain when urinating. ? Swelling of the penis in men. ? Inability to pass urine (urinary obstruction). How is this diagnosed? This condition may be diagnosed based on: ? Your medical history and a physical exam. ? Urine tests to check for infection or bleeding. ? X-rays. ? Ultrasound. ? Retrograde urethrogram. This is a type of test in which dye is injected into the urethra and then an X-ray is taken. ? Urethroscopy. This is when a thin tube with a light and camera on the end (urethroscope) is used to look at the urethra. How is this treated? This condition is treated with surgery. The type of surgery that you have depends on the severity of your condition. You may have: ? Urethral dilation. In this procedure, the narrow part of the urethra is stretched open (dilated) with dilating instruments or a small balloon. ? Urethrotomy. In this procedure, a urethroscope is placed into the urethra, and the narrow part of the urethra is cut open with a surgical blade inserted through the urethroscope. ? Open surgery. In this procedure, an incision is made in the urethra, the narrow part is removed, and the urethra is reconstructed. Follow these instructions at home: ? Take ucib-xqi-fanhodd and prescription medicines only as told by your health care provider. ? If you were prescribed an antibiotic medicine, take it as told by your health care provider. Do not stop taking the antibiotic even if you start to feel better. ? Drink enough fluid to keep your urine pale yellow. ? Keep all follow-up visits as told by your health care provider. This is important. Contact a health care provider if: ? You have signs of a urinary tract infection, such as: ? Frequent urination or passing small amounts of urine frequently. ? Needing to urinate urgently. ? Pain or burning with urination. ? Urine that smells bad or unusual. ? Cloudy urine. ? Pain in the lower abdomen or back. ? Trouble urinating. ? Blood in the urine. ? Vomiting or being less hungry than normal. ? Diarrhea or abdominal pain. ? Vaginal discharge, if you are female. ? Your symptoms are getting worse instead of better. Get help right away if: ? You cannot pass urine. ? You have a fever. ? You have swelling, bruising, or discoloration of your genital area. This includes the penis, scrotum, and inner thighs for men, and the outer genital organs (vulva) and inner thighs for women. ? You develop swelling in your legs. ? You have difficulty breathing. Summary ? Urethral stricture is narrowing of the tube (urethra) that carries urine from the bladder out of the body. The urethra can become narrow due to scar tissue from an injury or infection. ? This condition can make it difficult to pass urine. ? This condition is treated with surgery. The type of surgery that you have depends on the severity of your condition. ? Contact a health care provider if your symptoms get worse or you have signs of a urinary tract infection. This information is not intended to replace advice given to you by your health care provider. Make sure you discuss any questions you have with your health care provider. Document Revised: 02/14/2022 Document Reviewed: 02/14/2022 [employer] Patient Education ? 2022 [employer]. [facility] 11-16-2023 Note Patient Education Infectious Disease COVID-19 COVID-19, or coronavirus disease 2019, is an infection that is caused by a new (novel) coronavirus called SARS-CoV-2. COVID-19 can cause many symptoms. In some people, the virus may not cause any symptoms. In others, it may cause mild or severe symptoms. Some people with severe infection develop severe disease. What are the causes? This illness is caused by a virus. The virus may be in the air as tiny specks of fluid (aerosols) or droplets, or it may be on surfaces. You may catch the virus by: ? Breathing in droplets from an infected person. Droplets can be spread by a person breathing, speaking, singing, coughing, or sneezing. ? Touching something, like a table or a doorknob, that has virus on it (is contaminated) and then touching your mouth, nose, or eyes. What increases the risk? Risk for infection: You are more likely to get infected with the COVID-19 virus if: ? You are within 6 ft (1.8 m) of a person with COVID-19 for 15 minutes or longer. ? You are providing care for a person who is infected with COVID-19. ? You are in close personal contact with other people. Close personal contact includes hugging, kissing, or sharing eating or drinking utensils. Risk for serious illness caused by COVID-19: You are more likely to get seriously ill from the COVID-19 virus if: ? You have cancer. ? You have a long-term (chronic) disease, such as: ? Chronic lung disease. This includes pulmonary embolism, chronic obstructive pulmonary disease, and cystic fibrosis. ? Long-term disease that lowers your body's ability to fight infection (immunocompromise). ? Serious cardiac conditions, such as heart failure, coronary artery disease, or cardiomyopathy. ? Diabetes. ? Chronic kidney disease. ? Liver diseases. These include cirrhosis, nonalcoholic fatty liver disease, alcoholic liver disease, or autoimmune hepatitis. ? You have obesity. ? You are or were recently . ? You have sickle cell disease. What are the signs or symptoms? Symptoms of this condition can range from mild to severe. Symptoms may appear any time from 2 to 14 days after being exposed to the virus. They include: ? Fever or chills. ? Shortness of breath or trouble breathing. ? Feeling tired or very tired. ? Headaches, body aches, or muscle aches. ? Runny or stuffy nose, sneezing, coughing, or sore throat. ? New loss of taste or smell. This is rare. Some people may also have stomach problems, such as nausea, vomiting, or diarrhea. Other people may not have any symptoms of COVID-19. How is this diagnosed? This condition may be diagnosed by testing samples to check for the COVID-19 virus. The most common tests are the PCR test and the antigen test. Tests may be done in the lab or at home. They include: ? Using a swab to take a sample of fluid from the back of your nose and throat (nasopharyngeal fluid), from your nose, or from your throat. ? Testing a sample of saliva from your mouth. ? Testing a sample of coughed-up mucus from your lungs (sputum). How is this treated? Treatment for COVID-19 infection depends on the severity of the condition. ? Mild symptoms can be managed at home with rest, fluids, and gwvt-phz-kosomer medicines. ? Serious symptoms may be treated in a hospital intensive care unit (ICU). Treatment in the ICU may include: ? Supplemental oxygen. Extra oxygen is given through a tube in the nose, a face mask, or a garcia. ? Medicines. These may include: ? Antivirals, such as monoclonal antibodies. These help your body fight off certain viruses that can cause disease. ? Anti-inflammatories, such as corticosteroids. These reduce inflammation and suppress the immune system. ? Antithrombotics. These prevent or treat blood clots, if they develop. ? Convalescent plasma. This helps boost your immune system, if you have an underlying immunosuppressive condition or are getting immunosuppressive treatments. ? Prone positioning. This means you will lie on your stomach. This helps oxygen to get into your lungs. ? Infection control measures. If you are at risk for more serious illness caused by COVID-19, your health care provider may prescribe two long-acting monoclonal antibodies, given together every 6 months. How is this prevented? To protect yourself: ? Use preventive medicine (pre-exposure prophylaxis). You may get pre-exposure prophylaxis if you have moderate or severe immunocompromise. ? Get vaccinated. Anyone 6 months old or older who meets guidelines can get a COVID-19 vaccine or vaccine series. This includes people who are or making breast milk (lactating). ? Get an added dose of COVID-19 vaccine after your first vaccine or vaccine series if you have moderate to severe immunocompromise. This applies if you have had a solid organ transplant or have been diagnosed with an immunocompromising condit (more content not included)... [facility] 10-31-2023 Note Subjective Patient ID: Felisha Montano is a 73 y.o. female who presents for Follow-up (Felisha is here today for follow up: Rectal Prolapse, S/P CT ). HPI 73 years old white female is status post sigmoid colectomy for diverticulitis more than 5 years ago in [place]. She has chronic constipation. She denies of rectal prolapse. Review of Systems Constitutional: Negative. HENT: Negative. Eyes: Negative. Respiratory: Negative. Cardiovascular: Negative. Gastrointestinal: Negative. Endocrine: Negative. Genitourinary: Negative. Musculoskeletal: Negative. Allergic/Immunologic: Negative. Neurological: Negative. Hematological: Negative. Psychiatric/Behavioral: Negative. Objective There were no vitals taken for this visit. Physical Exam CT pelvis wo IV contrast Order: [id number] Status: Final result Visible to patient: Yes (not seen) Dx: Rectal prolapse 0 Result Notes Details Reading Physician Reading Date Result Priority Alireza Infante MD [phone] 09/24/2023 Routine Narrative & Impression CLINICAL INFORMATION: Rectal prolapse. TECHNIQUE/PROCEDURE: CT pelvis without intravenous contrast.. Automated exposure control was utilized. COMPARISON: 06/16/2023 FINDINGS: No bowel dilatation in the [id number]. Rectal contrast traverses the visualized portions of the colon. There is no anastomotic leak. The anorectal angle is above the PCL on initial imaging. Urinary bladder unremarkable. Status post hysterectomy. No enlarged lymph nodes. Degenerative changes in the osseous structures are age compatible. IMPRESSION: *No anastomotic leak of the primary colorectal anastomosis status post sigmoid colectomy. *CT is suboptimal to evaluate pelvic floor dysfunction; MRI defecography is more appropriate. All CT scans at this facility use dose modulation, iterative reconstruction, and/or weight based dosing when appropriate to reduce radiation dose to as low as reasonably achievable. Electronically signed: Alireza Infante M.D.. Specimen Collected: 09/24/23 08:37 Last Resulted: 09/24/23 08:40 CT abdomen pelvis w IV contrast Order: [id number] Status: Final result Visible to patient: Yes (not seen) 0 Result Notes Details Reading Physician Reading Date Result Priority Bianca Xie [phone] 06/16/2023 STAT Dalton Orourke MD [phone] 06/16/2023 Narrative & Impression CT ABDOMEN PELVIS W IV CONTRAST 06/16/2023 12:07 AM CLINICAL INDICATIONS: Abdominal pain. Evaluate for SBO. TECHNIQUE: CT abdomen and pelvis with intravenous and oral contrast. Multiplanar reformats were performed. IV Contrast: 100 mL of Omnipaque 350 was injected intravenously. Oral Contrast: 50 mL of Omnipaque administered through the NG tube every 30 minutes over 2 to 3 hours. Protocol: Axial CT images from the lung bases to the pubic symphysis were performed following the uneventful administration of intravenous and oral contrast. All CT scans at this facility use dose modulation, iterative reconstruction, and/or weight based dosing when appropriate to reduce radiation dose to as low as reasonably achievable COMPARISON: 01/30/2019. FINDINGS: Lower chest: Bilateral lower lobe dependent atelectasis. No focal consolidation or pleural effusion. Hepatobiliary, pancreas, and spleen: Diffuse hepatic steatosis. Vicarious excretion of contrast in the gallbladder. No focally enhancing lesions are seen in the liver, spleen, or pancreas. Genitourinary and adrenal glands: The adrenal glands and kidneys are unremarkable. There is a subcentimeter cystic lesion in the right kidney, which is too small to characterize, but lacks aggressive features and therefore requires no follow-up. The uterus is absent. Retroperitoneum and vascular: The abdominal aorta is nonaneurysmal. The IVC is right-sided. No portal venous thrombosis. Chronic left ovarian vein thrombosis. Bowel and mesentery: The enteric tube tip is in the stomach. Oral contrast is seen throughout the small bowel and in the ascending colon. No distended bowel loops are seen. There is diffuse mesenteric edema in the mid abdomen as well as in the region of the distal descending colon. Diverticula and pericolic fat stranding are seen in the lower descending colon. Status post sigmoid colon resection, with left lower quadrant colocolic anastomosis. No free gas or free fluid. Soft tissues and bones: Mid lower abdominal wall diastases containing nondistended small bowel loops. Multilevel degenerative changes of the lumbar spine. IMPRESSION: *Findings of acute uncomplicated distal descending colon diverticulitis with mesenteric edema. No CT evidence of abscess or perforation. *No evidence of bowel obstruction. *Findings of prior sigmoid colon resection. Approved by:Bianca Álvarez06/16/2023 12:56 AM. I, Dalton Orourke,have reviewed the image(s) and agree with the findings in this report. Electronical (more content not included)... [facility] 09-20-2023 Note CLINICAL INFORMATION : Rectal prolapse. TECHNIQUE/PROCEDURE: CT pelvis without intravenous contrast.. Automated exposure control was utilized. COMPARISON: 06/16/2023 FINDINGS: No bowel dilatation in the [id number]-tadu. Rectal contrast traverses the visualized portions of the colon. There is no anastomotic leak. The anorectal angle is above the PCL on initial imaging. Urinary bladder unremarkable. Status post hysterectomy. No enlarged lymph nodes. Degenerative changes in the osseous structures are age compatible. IMPRESSION: *No anastomotic leak of the primary colorectal anastomosis status post sigmoid colectomy. *CT is suboptimal to evaluate pelvic floor dysfunction; MRI defecography is more appropriate. All CT scans at this facility use dose modulation, iterative reconstruction, and/or weight based dosing when appropriate to reduce radiation dose to as low as reasonably achievable. Electronically signed: Alireza Infante M.D.. Not Vldtd [facility] Comment on above: Order Comment: With rectal contrast 08-21-2023 Hospital Discharge instructions Patient Education 08/21/2023 15:18:22 Antibiotic Medicine, Adult Antibiotic Medicine, Adult Antibiotic medicines are used to treat infections caused by bacteria, such as strep throat and urinary tract infection (UTI). Antibiotic medicines will not work for colds, the flu (influenza), or other illnesses caused by viruses. These medicines work by killing the bacteria that are making you sick. Antibiotics can also have serious side effects. It is important that you take antibiotic medicines safely and only when needed. When do I need to take antibiotics? You may need antibiotics for: UTI. Strep throat. Bacterial sinusitis. Meningitis. This infection affects the spinal cord and brain. Serious lung infection. You may start antibiotics while your health care provider waits for your results from any tests for possible infection. Tests may include a culture of your throat, urine, blood, or mucus. Your health care provider may change or stop your antibiotic depending on your test results. When are antibiotics not needed? You do not need antibiotics for most common illnesses. These illnesses may be caused by a virus, not by bacteria. You do not need antibiotics for: The common cold. Influenza. Sore throat. Discolored mucus. Bronchitis. Antibiotics are not always needed for all infections caused by bacteria. Many of these infections clear up without antibiotic treatment. Do not ask for or take antibiotics when they are not necessary. How long should I take my antibiotic? You must take the entire prescription. Continue to take your antibiotic for as long as told by your health care provider. Do not stop taking it even if you start to feel better. If you stop taking it too soon: You may start to feel sick again. Your infection may become harder to treat. Each course of antibiotics needs a different amount of time to work. Some antibiotic courses last only a few days. Some last about a week to 10 days. In some cases, you may need to take antibiotics for a few weeks to completely treat your infection. What if I miss a dose? Try not to miss any doses of medicine. If you miss a dose, call your health care provider or pharmacist for advice. Sometimes it is okay to take the missed dose as soon as possible. Do not take double or extra doses. What are the risks of taking antibiotics? Antibiotics can cause: Allergic reactions. Nausea. Yeast infections. Liver problems. Antibiotics can also cause an infection called Clostridioides difficile (C. difficile or C. diff), which causes severe diarrhea. This infection happens when the antibiotics kill the healthy bacteria in your intestines. This allows C. diff to grow. C. diff needs to be treated right away. Let your health care provider know if: You develop diarrhea while taking an antibiotic. You develop diarrhea after you stop taking an antibiotic. C. diff infection can start weeks after stopping the antibiotic. Taking an antibiotic also puts you at risk for getting sick in the future with bacteria that do not respond to medicine (antibiotic-resistant infection). Antibiotics can cause bacteria to change so that if the antibiotic is taken again, the medicine cannot kill the bacteria. These infections can be more serious and, in some cases, life-threatening. Do antibiotics affect control? control pills may not work while you are on antibiotics. If you are taking control pills, continue taking them as usual and use a second form of control, such as a condom, to avoid unwanted . Continue using the second form of control until your health care provider says you can stop. What else should I know about taking antibiotics? It is important for you to take antibiotics exactly as told. Make sure to: Take the correct amount of medicine at the same time each day. Ask your health care provider: ?How long to wait between doses. ?If your antibiotic should be taken with food. ?If there are any foods, drinks, or medicines that you should avoid while taking your antibiotics. ?If there are any side effects you should be aware of. Use only the antibiotics prescribed for you by your health care provider. Do not use antibiotics prescribed for someone else. Drink a large glass of water when taking your antibiotics. Drink enough fluid to keep your urine pale yellow. Ask your pharmacist for a syringe, cup, or spoon that properly measures your antibiotics. Throw away any leftover medicine. Follow these instructions at home: Take pvsl-xat-hozaiot and prescription medicines as told by your health care provider. Return to your normal activities as told by your health care provider. Ask your health care provider what activities are safe for you. Keep all follow-up visits as told by your health care provider. This is important. Contact a health care provider if: Your symptoms get worse. You have new joint pain or muscle aches that begin after starting your antibiotic. You have side effects from your antibiotic, such as: ?Stomach pain. ?Diarrhea. ?Nausea. ?White patches in your mouth or throat. Get help right away if: You have signs of a severe allergic reaction to antibiotics. If you have any of these signs, stop taking the antibiotic right away. Signs may include: ?Hives. These are raised, itchy, red bumps on your skin. ?Skin rash. ?Trouble breathing. ?Noisy breathing (wheezing). ?Swelling anywhere on your body. ?Feeling dizzy. ?Vomiting. You have signs of liver problems, such as: ?Dark or blood-colored urine. ?Yellow color to your skin. ?Bruising or bleeding easily. You have severe diarrhea, and you have cramps in your abdomen. You have a severe headache. These symptoms may represent a serious problem that is an emergency. Do not wait to see if the symptoms will go away. Get medical help right away. Call your local emergency services (911 in the [place] Do not drive yourself to the hospital. Summary Antibiotic medicines are used to treat infections caused by bacteria. It is important that you take antibiotic medicines safely and only when needed. Your health care provider may change or stop your antibiotic depending on your results from certain tests. Finish all antibiotic medicine even when you start to feel better. This information is not intended to replace advice given to you by your health care provider. Make sure you discuss any questions you have with your health care provider. Document Revised: 05/24/2020 Document Reviewed: 01/27/2020 [employer] [employer] Patient Education 2022 [employer]. Follow Up Care 05/23/2023 11:14:46 With:Mazin PRYOR, MELINDA Acosta, URO Address: When:Within 3 Month(s) [facility] [place] 08-07-2023 Note Subjective Patient ID: Felisha Montano is a 73 y.o. female who presents for Hospital Follow-up (Felisha is here today for a hospital follow up for small bowel obstruction. ). HPI Review of Systems Constitutional: Negative. Respiratory: Negative. Cardiovascular: Negative. Gastrointestinal: Negative. Genitourinary: Negative. Neurological: Positive for dizziness. Hematological: Negative. Objective Visit Vitals BP 121/61 (BP Location: Right arm, Patient Position: Sitting) Pulse 69 Temp 36.7 ???C (98.1 ???F) (Oral) Physical Exam Assessment/Plan No diagnosis found. No orders of the defined types were placed in this encounter. No results found for this or any previous visit (from the past 36 hour(s)). No follow-ups on file. [facility] 08-07-2023 Note Subjective Patient ID: Felisha Montano is a 73 y.o. female who presents for Hospital Follow-up (Felisha is here today for a hospital follow up for small bowel obstruction. ). Ms. Montano is a 73 year old female with PMH Montano's with reversal, YI, appendectomy, rectal prolapse surgery and incisional hernia repair with mesh presenting for follow up for hospitalization this past May. She initially presented to an outside hospital for abdominal pain and was diagnosed with SBO and subsequently transferred to [facility]. While at [facility], repeat imaging did not demonstrate SBO but did demonstrate active diverticulitis. She was treated with IV antibiotics and did not require surgical intervention. Ms. Montano reports to be doing well overall since discharge. She has not had abdominal pian, diarrhea, constipation, vomiting, fever, chills or any other symptoms suggestive of active infection. She is able to tolerate normal diet with no difficulty. She has been trying to increase her intake of fiber and vegetables. She did express some concern regarding rectal prolapse. She has had rectal prolapse in the remote past, but lately it feels like it did when I had my prolapse. Review of Systems Constitutional: Negative. Respiratory: Negative. Cardiovascular: Negative. Gastrointestinal: Negative. Genitourinary: Negative. Neurological: Positive for dizziness. Hematological: Negative. Objective Visit Vitals BP 121/61 (BP Location: Right arm, Patient Position: Sitting) Pulse 69 Temp 36.7 ???C (98.1 ???F) (Oral) Physical Exam Constitutional: General: She is not in acute distress. Appearance: Normal appearance. She is obese. She is not ill-appearing, toxic-appearing or diaphoretic. HENT: Head: Normocephalic and atraumatic. Pulmonary: Effort: Pulmonary effort is normal. Abdominal: General: Abdomen is flat. A surgical scar is present. Bowel sounds are normal. There is no distension or abdominal bruit. There are no signs of injury. Palpations: Abdomen is soft. There is no shifting dullness, fluid wave, hepatomegaly, splenomegaly, mass or pulsatile mass. Tenderness: There is no abdominal tenderness. There is no guarding or rebound. Hernia: A hernia is present. Hernia is present in the umbilical area. Skin: General: Skin is warm and dry. Coloration: Skin is not jaundiced or pale. Findings: No bruising, erythema, lesion or rash. Neurological: General: No focal deficit present. Mental Status: She is alert and oriented to person, place, and time. Mental status is at baseline. Psychiatric: Mood and Affect: Mood normal. Behavior: Behavior normal. Thought Content: Thought content normal. Judgment: Judgment normal. Assessment/Plan Ms. Montano is a 73 year old female presenting for follow up for hospitalization this past May for SBO/diverticulitis. Ms. Montano reports to be doing well overall since discharge. She has been trying to consume adequate amounts of fiber and vegetables in her diet. She does not require repeat follow up but is welcome back if her status changes. Follow up for recent hospitalization: doing well since discharge, encouraged continuing fiber intake Rectal prolapse:Evaluate with CT scan pelvic with rectal contrast. Umbilical hernia: asymptomatic, no indication for surgical correction at this time Martínez Celeste, MS3 [facility] 08/07/23 [facility] 2023 Hospital Discharge instructions Follow Up Care 2023 10:40:26 With:Raghavendra PRYOR, Barbara Agarwal, PUL, ANNA Address: [address] [place] [address] [facility] [place] [address]- When:6 weeks [facility] 06-16-2023 Note Attestation signed by Davina Pino MD at 06/16/2023 4:13 PM I examined and discussed the patient with the resident. I agree with the above findings and plan of care. Davina Pino Time Spent 25min [facility] General Surgery DAILY PROGRESS NOTE Subjective No events overnight. Resting comfortably in bed. NG tube remains in place with about 700 ml output over 24 hours. Reports her abdominal pain is significantly improved, minimal residual soreness at LLQ. Passing gasses. Objective Vitals: Vitals: 06/16/23 0845 BP: 124/55 Pulse: 71 Resp: 16 Temp: 36.7 ???C (98.1 ???F) SpO2: 93% I/O last 3 completed shifts: In: 310 (3.6 mL/kg) [I.V.:210 (2.4 mL/kg); IV Piggyback:100] Out: - (0 mL/kg) Weight: 86.5 kg I/O this shift: In: 100 [IV Piggyback:100] Out: 700 [Urine:700] Physical Exam General Appearance: Awake, Alert & Oriented x3, No Acute Distress Neck: Trachea Midline, No jugular venous distension Pulmonary: Unlabored breathing on room air. No expiratory wheeze. Cardiac: Regular rate and rhythm Abdomen: soft, nondistended, minimal soreness LLQ Extremity: No edema Bilateral Upper and lower Extremities Skin: warm and dry without rash Eyes: no scleral icterus Labs: Results from last 7 days Lab Units 06/16/23 0539 06/15/23 1629 WBC AUTO 10*3/uL 5.89 7.17 HEMOGLOBIN g/dL 12.1 13.2 HEMATOCRIT % 36.5 39.6 PLATELETS AUTO 10*3/uL 238 263 Results from last 7 days Lab Units 06/16/23 0539 06/15/23 1629 SODIUM mmol/L 138 140 POTASSIUM mmol/L 3.5 3.8 CO2 mmol/L 29 30 BUN mg/dL 9 13 CREATININE mg/dL 0.65 0.75 Medications: iohexol, 30 mL, oral, Once in imaging piperacillin-tazobactam, 4.5 g, intravenous, q8h sodium chloride, 100 mL/hr, Last Rate: 100 mL/hr (06/16/23 1243) Imaging: CT abdomen pelvis w IV contrast Narrative: CT ABDOMEN PELVIS W IV CONTRAST 06/16/2023 12:07 AM CLINICAL INDICATIONS: Abdominal pain. Evaluate for SBO. TECHNIQUE: CT abdomen and pelvis with intravenous and oral contrast. Multiplanar reformats were performed. IV Contrast: 100 mL of Omnipaque 350 was injected intravenously. Oral Contrast: 50 mL of Omnipaque administered through the NG tube every 30 minutes over 2 to 3 hours. Protocol: Axial CT images from the lung bases to the pubic symphysis were performed following the uneventful administration of intravenous and oral contrast. All CT scans at this facility use dose modulation, iterative reconstruction, and/or weight based dosing when appropriate to reduce radiation dose to as low as reasonably achievable COMPARISON: 01/30/2019. FINDINGS: Lower chest: Bilateral lower lobe dependent atelectasis. No focal consolidation or pleural effusion. Hepatobiliary, pancreas, and spleen: Diffuse hepatic steatosis. Vicarious excretion of contrast in the gallbladder. No focally enhancing lesions are seen in the liver, spleen, or pancreas. Genitourinary and adrenal glands: The adrenal glands and kidneys are unremarkable. There is a subcentimeter cystic lesion in the right kidney, which is too small to characterize, but lacks aggressive features and therefore requires no follow-up. The uterus is absent. Retroperitoneum and vascular: The abdominal aorta is nonaneurysmal. The IVC is right-sided. No portal venous thrombosis. Chronic left ovarian vein thrombosis. Bowel and mesentery: The enteric tube tip is in the stomach. Oral contrast is seen throughout the small bowel and in the ascending colon. No distended bowel loops are seen. There is diffuse mesenteric edema in the mid abdomen as well as in the region of the distal descending colon. Diverticula and pericolic fat stranding are seen in the lower descending colon. Status post sigmoid colon resection, with left lower quadrant colocolic anastomosis. No free gas or free fluid. Soft tissues and bones: Mid lower abdominal wall diastases containing nondistended small bowel loops. Multilevel degenerative changes of the lumbar spine. Impression: *Findings of acute uncomplicated distal descending colon diverticulitis with mesenteric edema. No CT evidence of abscess or perforation. *No evidence of bowel obstruction. *Findings of prior sigmoid colon resection. Approved by:Bianca Álvarez06/16/2023 12:56 AM. I, Dalton Orourke,have reviewed the image(s) and agree with the findings in this report. Electronically signed: Dalton Orourke. Assessment/Plan Felisha Montano is a 72 y.o. female initially admitted for concerns of small bowel obstruction. Repeat imaging did not demonstrate signs of bowel obstruction instead revealed evidence acute uncomplicated descending colonic diverticulitis. NG tube removed, OK for sips and ice chips. If tolerated may advance to clear liquids later today. Continue IV ant (more content not included)... [facility] 06-15-2023 Note Hospital Medicine History and Physical 06/15/2023 1:45 PM THE HOSPITALIST TEAM PREFERS TO USE [employer] CHAT FOR COMMUNICATION 7AM-7PM. IF I DO NOT RESPOND WITHIN 15 MINUTES, PLEASE PAGE ME/CALL THROUGH THE NURSING MANAGER. FROM 7PM-7AM, PLEASE PAGE [phone](COVR) Chief Complaint No chief complaint on file. History of Present Illness Felisha Montano is an 72 y.o. female admitted from [facility] as a direct transfer where she presented in the morning with ongoing abdominal pain since last night pain mainly in the lower abdominal quadrant and periumbilical area described by patient as intermittent sharp squeezing nonradiating associated with nausea vomiting and vomited 4 times at home and then 3 times in the [facility] ER patient denies any fever chills diarrhea last bowel movement she had was a day back to vary from stool with no blood or melena patient has history of abdominal wall hernia repair x 2 and history of bowel obstruction in the past in the ER workup showed WBC 11 hemoglobin 14.3 hematocrit 42.7 platelet counts were 286 blood chemistry showed normal electrolytes glucose was 150 lactate initially was 3.1 and went up to 3.5 normal LFTs urine was negative had a CT scan and it showed low-grade partial small bowel obstruction with transition in the left lower quadrant NG tube was placed with return of brownish fluid Review of System and Physical Exam Temp: [36.7 ???C (98.1 ???F)] 36.7 ???C (98.1 ???F) Heart Rate: [68] 68 Resp: [18] 18 BP: (122)/(57) 122/57 Physical Exam Vitals reviewed. Constitutional: Appearance: Normal appearance. She is obese. HENT: Head: Normocephalic and atraumatic. Right Ear: Tympanic membrane, ear canal and external ear normal. Left Ear: Tympanic membrane, ear canal and external ear normal. Nose: Nose normal. Mouth/Throat: Mouth: Mucous membranes are moist. Pharynx: Oropharynx is clear. Eyes: Extraocular Movements: Extraocular movements intact. Conjunctiva/sclera: Conjunctivae normal. Pupils: Pupils are equal, round, and reactive to light. Cardiovascular: Rate and Rhythm: Normal rate and regular rhythm. Pulses: Normal pulses. Heart sounds: Normal heart sounds. No murmur heard. Pulmonary: Breath sounds: Normal breath sounds. Abdominal: General: Abdomen is flat. Bowel sounds are normal. Palpations: Abdomen is soft. Tenderness: There is abdominal tenderness. There is no guarding. Musculoskeletal: General: Normal range of motion. Cervical back: Normal range of motion and neck supple. Skin: General: Skin is dry. Capillary Refill: Capillary refill takes less than 2 seconds. Neurological: General: No focal deficit present. Mental Status: She is alert. Mental status is at baseline. She is disoriented. Psychiatric: Mood and Affect: Mood normal. Behavior: Behavior normal. Review of Systems Constitutional: Positive for activity change and fatigue. HENT: Negative. Eyes: Negative. Respiratory: Negative. Cardiovascular: Negative. Gastrointestinal: Positive for abdominal pain, diarrhea, nausea and vomiting. Endocrine: Negative. Genitourinary: Negative. Musculoskeletal: Negative. Skin: Negative. Allergic/Immunologic: Negative. Neurological: Negative. Hematological: Negative. Psychiatric/Behavioral: Negative. Problem List Patient Active Problem List Diagnosis Date Noted Small bowel obstruction, partial ([facility]) 06/15/2023 Assessment and Plan Small bowel obstruction Abdominal pain nausea vomiting Lactic acidosis Hypothyroidism plan continue NG to suction IV hydration repeat lactate electrolytes creatinine pain consult surgery to follow patient repeat x-ray of the abdomen in the morning CODE STATUS full code VTE Prophylaxis: no ----- Focus of this inpatient stay will remain on problems that need acute care setting for care. We will review available studies and will order additional labs, imaging and other studies as appropriate. As needed medicines are ordered as appropriate. VTE Prophylaxis will be ordered as appropriate. Please see above for management plan for individual hospital problems. Home medications are reviewed and will be continued as appropriate. Patient will be continued to be followed during this hospital stay by a member of [facility]. Past Medical History No past medical history on file. Past Surgical History No past surgical history on file. Social History Social History Socioeconomic History Marital status: Spouse name: Not on file Number of children: Not on file Years of education: Not on file Highest education level: Not on file Occupational History Not on file Tobacco Use Smoking status: Not on file Smokeless tobacco: Not on file Substance and Sexual Activity Alcohol use: Not on file Drug use: Not on file Sexual activity: Not on file Other Topics Concern Not on file Social History Narrative Not o (more content not included)... [facility] 02-21-2023 Hospital Discharge instructions Patient Education 02/21/2023 10:41:12 Urinary Tract Infection, Adult, Vpqi-uk-Qrha Urinary Tract Infection, Adult A urinary tract infection (UTI) is an infection of any part of the urinary tract. The urinary tract includes: The kidneys. The ureters. The bladder. The urethra. These organs make, store, and get rid of pee (urine) in the body. What are the causes? This infection is caused by germs (bacteria) in your genital area. These germs grow and cause swelling (inflammation) of your urinary tract. What increases the risk? The following factors may make you more likely to develop this condition: Using a small, thin tube (catheter) to drain pee. Not being able to control when you pee or poop (incontinence). Being female. If you are female, these things can increase the risk: ?Using these methods to prevent : ?A medicine that kills sperm (spermicide). ?A device that blocks sperm (diaphragm). ?Having low levels of a female hormone (estrogen). ?Being . You are more likely to develop this condition if: You have genes that add to your risk. You are sexually active. You take antibiotic medicines. You have trouble peeing because of: ?A prostate that is bigger than normal, if you are male. ?A blockage in the part of your body that drains pee from the bladder. ?A kidney stone. ?A nerve condition that affects your bladder. ?Not getting enough to drink. ?Not peeing often enough. You have other conditions, such as: ?Diabetes. ?A weak disease-fighting system (immune system). ?Sickle cell disease. ?Gout. ?Injury of the spine. What are the signs or symptoms? Symptoms of this condition include: Needing to pee right away. Peeing small amounts often. Pain or burning when peeing. Blood in the pee. Pee that smells bad or not like normal. Trouble peeing. Pee that is cloudy. Fluid coming from the vagina, if you are female. Pain in the belly or lower back. Other symptoms include: Vomiting. Not feeling hungry. Feeling mixed up (confused). This may be the first symptom in older adults. Being tired and grouchy (irritable). A fever. Watery poop (diarrhea). How is this treated? Taking antibiotic medicine. Taking other medicines. Drinking enough water. In some cases, you may need to see a specialist. Follow these instructions at home: Medicines Take mswu-ksx-wolbbcj and prescription medicines only as told by your doctor. If you were prescribed an antibiotic medicine, take it as told by your doctor. Do not stop taking it even if you start to feel better. General instructions Make sure you: ?Pee until your bladder is empty. ?Do not hold pee for a long time. ?Empty your bladder after sex. ?Wipe from front to back after peeing or pooping if you are a female. Use each tissue one time when you wipe. Drink enough fluid to keep your pee pale yellow. Keep all follow-up visits. Contact a doctor if: You do not get better after 1 2 days. Your symptoms go away and then come back. Get help right away if: You have very bad back pain. You have very bad pain in your lower belly. You have a fever. You have chills. You feeling like you will vomit or you vomit. Summary A urinary tract infection (UTI) is an infection of any part of the urinary tract. This condition is caused by germs in your genital area. There are many risk factors for a UTI. Treatment includes antibiotic medicines. Drink enough fluid to keep your pee pale yellow. This information is not intended to replace advice given to you by your health care provider. Make sure you discuss any questions you have with your health care provider. Document Revised: 11/19/2020 Document Reviewed: 11/19/2020 [employer] Patient Education 2022 [employer]. Follow Up Care 12/14/2022 09:18:12 With:Mazin PRYOR, MELINDA Acosta, URO Address: When:Within 3 Month(s) Comments:w/MARVIN [facility] 08-25-2022 Hospital Discharge instructions Patient Education 08/25/2022 11:58:05 Cystoscopy Cystoscopy Cystoscopy is a procedure that is used to help diagnose and sometimes treat conditions that affect the lower urinary tract. The lower urinary tract includes the bladder and the urethra. The urethra is the tube that drains urine from the bladder. Cystoscopy is done using a thin, tube-shaped instrument with a light and camera at the end (cystoscope). The cystoscope may be hard or flexible, depending on the goal of the procedure. The cystoscope is inserted through the urethra, into the bladder. Cystoscopy may be recommended if you have: Urinary tract infections that keep coming back. Blood in the urine (hematuria). An inability to control when you urinate (urinary incontinence) or an overactive bladder. Unusual cells found in a urine sample. A blockage in the urethra, such as a urinary stone. Painful urination. An abnormality in the bladder found during an intravenous pyelogram (IVP) or CT scan. Cystoscopy may also be done to remove a sample of tissue to be examined under a microscope (biopsy). Tell a health care provider about: Any allergies you have. All medicines you are taking, including vitamins, herbs, eye drops, creams, and zjut-byf-krajrxe medicines. Any problems you or family members have had with anesthetic medicines. Any blood disorders you have. Any surgeries you have had. Any medical conditions you have. Whether you are or may be . What are the risks? Generally, this is a safe procedure. However, problems may occur, including: Infection. Bleeding. Allergic reactions to medicines. Damage to other structures or organs. What happens before the procedure? Medicines Ask your health care provider about: Changing or stopping your regular medicines. This is especially important if you are taking diabetes medicines or blood thinners. Taking medicines such as aspirin and ibuprofen. These medicines can thin your blood. Do not take these medicines unless your health care provider tells you to take them. Taking kyuc-zcv-iyedfaj medicines, vitamins, herbs, and supplements. Tests You may have an exam or testing, such as: X-rays of the bladder, urethra, or kidneys. CT scan of the abdomen or pelvis. Urine tests to check for signs of infection. General instructions Follow instructions from your health care provider about eating or drinking restrictions. Ask your health care provider what steps will be taken to help prevent infection. These steps may include: ?Washing skin with a germ-killing soap. ?Taking antibiotic medicine. Plan to have a responsible adult take you home from the hospital or clinic. What happens during the procedure? You will be given one or more of the following: ?A medicine to help you relax (sedative). ?A medicine to numb the area (local anesthetic). The area around the opening of your urethra will be cleaned. The cystoscope will be passed through your urethra into your bladder. Germ-free (sterile) fluid will flow through the cystoscope to fill your bladder. The fluid will stretch your bladder so that your health care provider can clearly examine your bladder day. Your doctor will look at the urethra and bladder. Your doctor may take a biopsy or remove stones. The cystoscope will be removed, and your bladder will be emptied. The procedure may vary among health care providers and hospitals. What can I expect after the procedure? After the procedure, it is common to have: Some soreness or pain in your abdomen and urethra. Urinary symptoms. These include: ?Mild pain or burning when you urinate. Pain should stop within a few minutes after you urinate. This may last for up to 1 week. ?A small amount of blood in your urine for several days. ?Feeling like you need to urinate but producing only a small amount of urine. Follow these instructions at home: Medicines Take vcov-yet-srqylgw and prescription medicines only as told by your health care provider. If you were prescribed an antibiotic medicine, take it as told by your health care provider. Do not stop taking the antibiotic even if you start to feel better. General instructions Return to your normal activities as told by your health care provider. Ask your health care provider what activities are safe for you. If you were given a sedative during the procedure, it can affect you for several hours. Do not drive or operate machinery until your health care provider says that it is safe. Watch for any blood in your urine. If the amount of blood in your urine increases, call your health care provider. Follow instructions from your health care provider about eating or drinking restrictions. If a tissue sample was removed for testing (biopsy) during your procedure, it is up to you to get your test results. Ask your health care provider, or the department that is doing the test, when your results will be ready. Drink enough fluid to keep your urine pale yellow. Keep all follow-up visits. This is important. Contact a health care provider if: You have pain that gets worse or does not get better with medicine, especially pain when you urinate. You have trouble urinating. You have more blood in your urine. Get help right away if: You have blood clots in your urine. You have abdominal pain. You have a fever or chills. You are unable to urinate. Summary Cystoscopy is a procedure that is used to help diagnose and sometimes treat conditions that affect the lower urinary tract. Cystoscopy is done using a thin, tube-shaped instrument with a light and camera at the end. After the procedure, it is common to have some soreness or pain in your abdomen and urethra. Watch for any blood in your urine. If the amount of blood in your urine increases, call your health care provider. If you were prescribed an antibiotic medicine, take it as told by your health care provider. Do not stop taking the antibiotic even if you start to feel better. This information is not intended to replace advice given to you by your health care provider. Make sure you discuss any questions you have with your health care provider. Document Revised: 12/21/2021 Document Reviewed: 11/19/2020 [employer] Patient Education 2022 [employer]. Follow Up Care 06/30/2022 11:52:53 With:Kera Retana MD, URL, URO Address: When: Unknown [facility] 10-19-2021 Note PROCEDURE: XR ANKLE RT MIN 3 VIEWS COMPARISON: None. HISTORY: Pain of right ankle joint FINDINGS: BONES:No acute fracture or dislocation. Moderate plantar enthesopathic spurring of the calcaneus. Degenerative changes with joint space narrowing. SOFT TISSUES:Negative. No visible soft tissue swelling. EFFUSION:None visible. OTHER: Calcific tendinosis of the Achilles tendon IMPRESSION: Calcific tendinosis of the Achilles tendon No acute fracture Electronically authenticated by: MELODIE TORRES Date: 2021-10-19 17:30 [facility] Evaluation + Plan note Future Appointments Appointment Date:09/12/2022 09:30:00 AM Scheduled Provider:Kera Retana MD Location:[facility] Appointment Type:URO Procedure 15 min [facility] Evaluation + Plan note Future Appointments Appointment Date:12/15/2022 10:00:00 AM Scheduled Provider:Kera Retana MD Location:[facility] Appointment Type:URO Office Visit Appointment Date:12/04/2023 09:30:00 AM Scheduled Provider: Location:[facility] Appointment Type: Medicare Wellness Subsequent Diagnostic Tests PendingHCV Antibody RFX to Quant PCR 12/05/22 [facility] Evaluation + Plan note Future Appointments Appointment Date:02/21/2023 09:45:00 AM Scheduled Provider:Kera Retana MD [facility] Appointment Type:URO Office Visit Appointment Date:12/04/2023 09:30:00 AM Scheduled Provider: [facility] Type:FM Medicare Wellness Subsequent [facility] Evaluation + Plan note Future Appointments Appointment Date:05/23/2023 10:00:00 AM Scheduled Provider:Kera Retana MD [facility] Appointment Type:URO Office Visit Appointment Date:12/04/2023 09:30:00 AM Scheduled Provider: [facility] Type:FM Medicare Wellness Subsequent [facility] Evaluation + Plan note Future Appointments Appointment Date:05/23/2023 10:00:00 AM Scheduled Provider:Kera Retana MD [facility] Type:URO Office Visit Appointment Date:12/04/2023 09:30:00 AM Scheduled Provider: [facility] Type:FM Medicare Wellness Subsequent [facility] Evaluation + Plan note Future Appointments Appointment Date:08/21/2023 02:20:00 PM Scheduled Provider:YOLI CRAIN PA-C [facility] App[facility] Type:URO Office Visit Appointment Date:12/04/2023 09:30:00 AM Scheduled Provider: [facility] Type:FM Medicare Wellness Subsequent [facility] Evaluation + Plan note Future Appointments Appointment Date:12/04/2023 09:30:00 AM Scheduled Provider: [facility] App[facility] Type:FM Medicare Wellness Subsequent Appointment Date:12/19/2023 09:00:00 AM Scheduled Provider:Kera Retana MD [facility] Appointment Type:URO Office Visit [facility] Evaluation + Plan note Future Appointments Appointment Date:12/04/2023 09:30:00 AM Scheduled Provider: [facility] Appointment Type:FM Medicare Wellness Subsequent Appointment Date:06/04/2024 08:45:00 AM Scheduled Provider:Kera Retana MD Location:[facility] Appointment Type:URO Office Visit [facility] Hospital course Narrative No data available for this section [facility] Hospital Discharge instructions No data available for this section [facility] Progress note No data available for this section [facility] Summary Purpose Family History No Family History Records FoundNo Family History Records Found No data available for this section No data available for this section No data available for this section No data available for this section No data available for this section No Family History Records FoundNo Family History Records Found No data available for this section No Family History Records Found Advance Directives No Advanced Directives Records FoundNo Advanced Directives Records FoundNo Advanced Directives Records FoundNo Advanced Directives Records FoundNo Advanced Directives Records Found Additional Source Comments INFORMATION SOURCE (unrecogn ized section and content) DATE CREATED AUTHOR 05/23/2019 [facility] DATE CREATED AUTHOR AUTHOR'S ORGANIZ ATION 10/22/2021 [facility] DATE CREATED AUTHOR AUTHOR'S ORGANIZ ATION 09/12/2023 [facility] EPIC DATE CREATED AUTHOR AUTHOR'S ORGANIZ ATION 11/07/2023 [facility] DATE CREATED AUTHOR AUTHOR'S ORGANIZ ATION 12/05/2023 [facility] Patient Care team informatio n (unrecognized section and content) Personnel Name: CEDRIC VINCENT MD Address: Address: [address] [place] [address] Personnel Name: Sharlene Correa Address: Address: [address] [place] [address]- Personnel Name: Sharlene Correa Address: Address: [address] [place] [address]- Personnel Name: Sharlene Correa Address: Address: [address] [place] [address]- Personnel Name: Sharlene Correa Address: Address: [address] [place] [address]- Personnel Name: Sharlene Correa Address: Address: [address] [place] [address]- Personnel Name: Sharlene Correa Address: Address: [address] [place] [address]- Personnel Name: Sharlene Correa Address: Address: [address] [place] [address]- Personnel Name: Sharlene Correa Address: Address: [address] [place] [address]- FOR RECORDS PERTAINING TO PATIENTS WHO ARE OR HAVE BEEN ENROLLED IN A CHEMICAL DEPENDENCY/SUBSTANCEABUSE PROGRAM, SOME INFORMATION MAY BE OMITTED. This clinical summary was aggregated from multiple sources. Caution should be exercised in using it in the provision of clinical care. This summary normalizes information from multiple sources, and as a consequence, information in this document may materially change the coding, format and clinical context of patient data. In addition, data may be omitted in some cases. CLINICAL DECISIONS SHOULD BE BASED ON THE PRIMARY CLINICAL RECORDS. [facility] [employer] [facility]. provides no warranty or guarantee of the accuracy or completeness of information in this document.
== END 2023-12-06 12:20 | disposition home or self-care (01) ==
LOC: RAD 12:22
PROVIDERS: PCP Nurse Practitioner; Visit Provider Nurse Practitioner
DX: R07.89 Other chest pain (principal); M54.50 Low back pain, unspecified; R07.81 Pleurodynia; S22.32XA Fracture of one rib, left side, initial encounter for closed fracture
CPT/HCPCS: 71101; 72110

== ENCOUNTER 2025-04-07 11:07 | Outpatient (OUT) | payer MEDICARE, SELFPAY ==
--- OUTSIDE RECORDS SUMMARY | 2025-04-07 11:13 | XMS_ITS | Clinical Summary ---
Author Organization [employer] tem Address [id number] [address] [place] [address] Care Team Providers Care Facilities Maintenance Worker Name Role Phone Unavailable Primary Care Provider Unavailabl e Immunizations ImmunizationAdministration DatesNext DueCOVID-19, mRNA, LNP-S, PF, 30mcg/0.3mL Dose07/06/2020,06/15/2020 Social History Tobacco UseTypesPacks/DayYears UsedDateSmoking Tobacco: Never AssessedChildcare AnswerDate TocjamvuTgmlprtbcOzwakvv46/23/2021EmploymentAnswerDate Recorded GfynqojaytOlidvje15/23/2021Purpose - LifeAnswerDate RecordedPurpose and direction in gmoaIeixxnu74/23/2021CommentsUnknownSex and Gender InformationValueDate RecordedSex Assigned at BirthNot on fileLegal SexFemale 06/15/2020 9:04 AM ESTGender IdentityNot on fileSexual OrientationNot on file Plan of Treatment Health MaintenanceDue DateLast DoneCommentsDepression Xlzrtlzog16/02/1964Tobacco Xwtjvxwwa49/02/1964Adult BMI Jthopkiip95/02/1970DTaP,Tdap and Td Vaccines (1 - Tdap)07/23/1970Zoster (Shingles) Vaccine (1 of 2)07/23/2001Fall Risk Screening 07/23/2016COVID-19 Vaccine ( season)/, 06/15/2020 Influenza Epbxqvn75/06/2019, 01/17/2019, 01/15/2019, Additional history existsRSV ( or age 60+ yrs) (1 - 1-dose 75+ series)07/23/2026 [employer] Not on file Insurance
--- OUTSIDE RECORDS SUMMARY | 2025-04-07 11:13 | XMS_ITS | Clinical Summary ---
Author Organization [facility] Address [address] [place] [address] Care Team Providers Care Furnace Operator Name Role Phone Elizabeth Shah STAFF TOXICOLOGIST-C Primary Care Provider [phone] Allergies Active AllergyReactionsCriticalityNoted GwkfBwxeoixzKpweomoCmjxr78/23/2024 Uxlymttytre26/30/2024 Other reaction(s): Dreams, Not available Other Reaction(s): Not available, Unknown Lpgfrsmx72/30/2024 Other reaction(s): Not available, Violent acts towards others Other Reaction(s): Not available, Unknown Medications MedicationSigDispense QuantityRefillsLast FilledStart DateEnd DateStatus levothyroxine (Synthroid, Levoxyl) 100 mcg tablet Take 100 mcg by mouth before breakfast.Active aspirin 81 mg EC tablet Take 81 mg by mouth in the morning.Active ALPRAZolam (Xanax) 0.25 mg tablet Take 0.25 mg by mouth if needed in the morning, at noon, and at bedtime for anxiety.Active LUTEIN-ZEAXANTHIN ORAL Take 1 tablet by mouth in the morning. Lutein 25mg - zeaxanthin 5mgActive ASCORBIC ACID, VITAMIN C, ORAL Take 1 tablet by mouth in the morning.Active glucosamine-chondroitin 500-400 mg tablet Take 1 tablet by mouth in the morning.Active coenzyme Q-10 100 mg capsule Take 100 mg by mouth in the morning.Active docosahexaenoic acid/epa (FISH OIL ORAL) Take 1 capsule by mouth in the morning.Active diphenhydrAMINE-acetaminophen (Tylenol PM Extra Strength) 25-500 mg per tablet Take by mouth.10/02/2022ctive amoxicillin-pot clavulanate (Augmentin) 875-125 mg tablet TAKE 1 TABLET BY MOUTH EVERY 12 HOURS FOR 7 DAYS07/23/2023ctive diclofenac (Voltaren) 75 mg EC tablet every 12 (twelve) hours.Active estradiol (Estrace) 0.01 % (0.1 mg/gram) vaginal cream See Instructions, 42.5 gm, Refill(s) 6, Apply pea-sized amount around the opening of the urethra and vagina 3 times per week at night for one month then 2 times per week after for maintenance., [facility], 158, cm, 09/12/22 10:10:00 EDT, Height/Length Dosing, 82.9, kg, 09/12/22 10:10:00 EDT, Weight Hyuzvv8409/12/2022ctive loratadine (Claritin) 10 mg tablet 1 (one) time each day at the same time10/02/2022ctive coenzyme W23-pibtbsf E 100-5 mg-unit capsule 1 (one) time each day at the same timeActive Active Problems ProblemNoted DateDiagnosed DateAbdominal painnemia ronchitisough Daytime kdpwjjxpzv71iverticulitisysuria Fluid level behind tympanic membrane of both ears08/07/2023 08/07/20234772Bsnltcbgz81Leg axoxcy48urulent postnasal tmoxjvqi96ight otitis media Tcbjigazg32Situational cqvivel38Skin texture meqtjwu19Urethral mouvuxbxx24Urinary urgency UTI (urinary tract infection)UTI due to Klebsiella zigbdxm55/Vaginal ikethpo53Small bowel obstruction, eaarmfz3106/15/20237624Dhyiaai38Hypothyroidism Night jmpnah76iverticular disease Functional disorder of mqgaytd95Osteopenia Ventral incisional ixwbgm19 Family History Medical HistoryRelationNameCommentsUlcersFatherBreast cancerMotherRelationName StatusCommentsFatherMother Social History Tobacco UseTypesPacks/DayYears UsedDateSmoking Tobacco: NeverSmokeless Tobacco: Never Tobacco Cessation:Counseling Given: Not Answered Alcohol UseStandard Drinks/WeekCommentsNever0 (1 standard drink = 0.6 oz pure alcohol)[facility] UtilitiesAnswerDate RecordedIn the past 12 months has the electric, gas, oil, or water company threatened to shut off services in your home?No 06/16/2023Humiliation, Afraid, Rape, and Kick questionnaireAnswerDate Recorded Within the last year, have you been afraid of your partner or ex-partner?No 10/31/2023Emotionally AbusedNot on file10/31/2023hysically AbusedNot on file 10/31/2023Sexually AbusedNot on file10/31/2023Overall Financial Resource Strain (CARDIA)AnswerDate RecordedHow hard is it for you to pay for the very basics like food, housing, medical care, and heating?Not hard at all06/16/2023HQ-2 AnswerDate RecordedPatient Health Questionnaire-2 Wcnjj906UT Safety & EnvironmentAnswerDate RecordedWithin the last year, have you been afraid of your partner or ex-partner?No08/07/2023Emotionally AbusedNot on file08/07/2023 Physically AbusedNot on file08/07/2023Sexually AbusedNot on file08/07/2023In the past year have you been physically or sexually abused?Unrecognized value 08/07/2023TransportationAnswerDate RecordedIn the past 12 months, has lack of transportation kept you from medical appointments or from getting medications?No 06/16/2023Lack of Transportation (Non-Medical)Not on file06/16/2023Housing Stability Vital SignAnswerDate RecordedUnable to Pay for Housing in the Last YearNot on file06/16/2023Number of Places Lived in the Last YearNot on file 06/16/2023In the last 12 months, was there a time when you did not have a steady place to sleep or slept in ashelter (including now)?No06/16/2023Hunger Vital SignAnswerDate RecordedWithin the past 12 months, you worried that your food would run out before you got the money to buymore.Never true06/16/2023an Out of Food in the Last YearNot on file06/16/2023CommentsUnknownSex and Gender InformationValueDate RecordedSex Assigned at GotgcBkpbjv64/23/2024 1:55 PM EST Legal HunSuorru43/30/2022 12:18 AM EDTGender DosltjnpQkdpck70/23/2024 1:55 PM ESTSexual OrientationHeterosexual or Ztrgfnlo55/23/2024 1:55 PM EST Last Filed Vital Signs Vital SignReadingTime TakenCommentsBlood Zzxibkuw485/6207 2:43 PM EDT Bomco1988 2:43 PM VRCQnqoodorqsr09.6 ??C (97.8 ??F)10/31/2023 2:43 PM EDTRespiratory Jude586206/17/2023 7:53 AM ESTOxygen Xwdmzyjfqe32%06/17/2023 7:53 AM ESTInhaled Oxygen Concentration--Uqtjmr73.6 kg (182 lb)10/31/2023 2:43 PM EDT Xkkvwy146.4 cm (5' 1.97 )06/15/2023 1:00 PM ESTBody Mass Index33.32006/15/2023 1:00 PM EST Plan of Treatment Health MaintenanceDue DateLast DoneCommentsMedicare Annual Wellness (AWV) 2Depression Ufpeqhnrl96/02/1668Ldypcburr24/02/1992Fall Risk Screening 07/23/2016Zoster Vaccines (2 of 2)3COVID-19 Vaccine ( season), 01/04/2022, 03/24/2021, Additional history existsInfluenza Vaccine (#1)/, 01/04/2022, 03/14/2021, Additional history existsAdult Slovtot253Pneumococcal Vaccine: 50+ GmyduTzdmgwecb53/27/2023, 01/17/2019, 01/15/2019HIB VaccinesAged OutNo longer eligible based on patient's age to complete this topicHPV VaccinesAged OutNo longer eligible based on patient's age to complete this topicIPV Vaccines Aged OutNo longer eligible based on patient's age to complete this topic Meningococcal B VaccineAged OutNo longer eligible based on patient's age to complete this topicMeningococcal VaccineAged OutNo longer eligible based on patient's age to complete this topicRotavirus VaccinesAged OutNo longer eligible based on patient's age to complete this topic Insurance Advance Directives * Full Code (Latest Code Status on File) Date ActivatedDate InactivatedComments06/15/2023 8:08 PM2 4:27 PM * Full Code Date ActivatedDate InactivatedComments06/15/2023 1:44 PM2 8:08 PM Care Teams Team MemberRelationshipSpecialtyStart DateEnd Date Elizabeth Shah FNP-C [address] [place] [address] PCP - GeneralNurse Practitioner06/15/23
--- OUTSIDE RECORDS SUMMARY | 2025-04-07 11:13 | XMS_ITS | Clinical Summary ---
Author Organization [facility] Address [address] [place] [facility] [place] [address] Care Team Providers Care Gas Controller Name Role Phone Elizabeth Shah EFFICIENCY CLERK Unavailable Allergies Active AllergyReactionsCriticalityNoted NcjyTcivrubgMjrwvrc75/30/2024 Other Reaction(s): GI Upset / Vomit, Not available Ulpqrdicmpj02/30/2024 Lunesta Wdzfjkeq71/30/2024 Ambien Medications MedicationSigDispense QuantityRefillsLast FilledStart DateEnd DateStatus ALPRAZolam (Xanax) 0.25 MG tablet Take 0.25 mg by mouth as needed in the morning and 0.25 mg as needed at noon and 0.25 mg as needed in the evening for anxiety.04/09/2023ctive aspirin 81 MG chewable tablet Active coenzyme Q-10 100 MG capsule 1 (one) time each day at the same timeActive diclofenac (Voltaren) 75 MG EC tablet every 12 (twelve) hoursActive levothyroxine (Synthroid, Levoxyl) 50 MCG tablet Take 1 tablet by mouth DailyActive loratadine (Claritin) 10 MG tablet 1 (one) time each day at the same timeActive Lutein-Zeaxanthin 25-5 MG capsule Active metroNIDAZOLE (Flagyl) 500 MG tablet Take 500 mg by mouth every 8 (eight) hours11/22/2022ctive Ascorbic Acid (vitamin C) 100 MG tablet Take 100 mg by mouth DailyActive ciprofloxacin (Cipro) 500 MG tablet See Instructions, TAKE 1 TABLET BY MOUTH TWICE A DAY START AT FIRST SIGN OF FLARE UP, # 14 tab(s), Refills(s) 1, Pharmacy: [facility], 157, cm, 09/17/24 11:46:00 EDT, Height/Length Dosing, 81.9, kg, 05/28/25 11:46:00 EDT, Weight Mdzwow975Active calcium carbonate (Os-Rj) 1250 (500 Ca) MG tablet 1 (one) time each day at the same timeActive diphenhydrAMINE-acetaminophen (Tylenol PM Extra Strength) 25-500 MG per tablet Take by mouth10/02/2022ctive estradiol (Estrace) 0.1 MG/GM vaginal cream See Instructions, 42.5 gm, Refill(s) 6, Apply pea-sized amount around the opening of the urethra and vagina 2 times per week for maintenance., [facility], 155, cm, 02/25/24 14:49:00 EST, Height/Length Dosing, 84.6, kg, 02/25/24 14:49:00 EST, Weight Lsldvv094Active omega-3 (fish oil) 1000 MG capsule 1 capsule 1 (one) time each day at the same timeActive levothyroxine (Synthroid, Levoxyl) 100 MCG tablet Take 100 mcg by mouth DailyActive glucosamine-chondroitin 500-400 MG tablet Take 1 tablet by mouth in the morning.Active Ofgwzguqifz-Kwcsophoy-Lsr C-Mn (Glucosamine Chondr 1500 Complx) capsule 1 capsule 1 (one) time each day at the same timeActive mupirocin (Bactroban) 2 % ointment Indications:Squamous cell carcinoma in situ (SCCIS) of skin of left cheekApply topically to mohs site on left cheek daily until healed, 30 day supply 15 g 5Active Active Problems No known active problems Encounters DateTypeDepartmentCare CpsbTulvrzclccu64/30/2025 9:15 AM EDTProcedure Visit [facility] [address] [place] [phone] Grupo Nogueira DPM Onychodystrophy (Primary Dx); Onychomycosis; Pain in both feet01/20/2025amboo flowsheet [facility] [address] [place] [address] Grupo Nogueira DPM 01/20/20259587Rmhuzq78/29/2025Travelfrom Last 3 Months Family History Medical HistoryRelationNameCommentsBreast cancerMotherMelanomaNeg HxRelationName XqgapeTvubzpqiMvsrapvc4RsqyiaHszmucmcCsnuogSrcqjteb Social History Tobacco UseTypesPacks/DayYears UsedDateSmoking Tobacco: NeverSmokeless Tobacco: Never Tobacco Cessation:Counseling Given: Not Answered Alcohol UseStandard Drinks/WeekCommentsNever0 (1 standard drink = 0.6 oz pure alcohol)CommentsUnknownSex and Gender InformationValueDate RecordedSex Assigned at BirthNot on fileLegal ZfgLpghpa47/15/2023 7:06 PM EDTGender Identity Not on fileSexual OrientationNot on file Last Filed Vital Signs Vital SignReadingTime TakenCommentsBlood Olvakzza406/80012/03/2024 9:03 AM EDT Pulse--Temperature--Respiratory Rate--Oxygen Saturation--Inhaled Oxygen Concentration--Xauzfq97.1 kg (170 lb)01/20/2025 9:19 AM TJJDwwclr672.5 cm (5' 2 )01/20/2025 9:19 AM EDTBody Mass Index31.0901/20/2025 9:19 AM EDT Plan of Treatment DateTypeDepartmentCare Team (Latest Contact Info)Jdkzrdciecf34/06/2026 9:00 AM ESTProcedure Visit [facility] [address] [place] [phone] Grupo Nogueira, DPM [address] [place] [address] 06/04/2025 10:45 AM ESTOffice Visit [facility] [address] [place] [address] Louisa Payton MD [address] [place] [address] Health MaintenanceDue DateLast DoneCommentsCT Pycuthulkmnz08/02/1952Colonoscopy 2Colorectal Cancer Ojuprajkw30/02/1952FIT-DNA1951FIT1950 FOBT1950 3977Nzpyipgdhrmlz37/02/5903Nzmzmzhnm15/02/1992COVID-19 Vaccine ( season), 01/04/2022, 03/24/2021, Additional history existsInfluenza Vaccine (#1), 01/04/2022, 03/14/2021, Additional history existsPneumococcal Vaccine: 65+ ZlxrcBwndyesbj40/27/2023, 01/17/2019 Insurance Care Teams Team MemberRelationshipSpecialtyStart DateEnd Date Elizabeth Shah NP [address] [place] [address] [id number] [facility]08/25/24
--- NOTE | 2025-04-07 11:32 | XR_ITS ---
The [address] [address] Patient Name: MAXINE MONTANO MRN: [id number] date: 1950 Sex: F Assigned Patient Location: [facility] Current Patient Location: [facility] Accession/Order Number: [id number] Exam Date: 04/07/2025 11:20 Report Date: 04/07/2025 12:17 At the request of: SHARLENE VAIL Procedure: XR knee LT 4V LEFT KNEE - 4 views COMPARISON: None CLINICAL DATA: Left knee pain for months, greater with ambulating. No reported injury. AP, lateral, internal oblique and patellar views were obtained. There is osteopenia. No acute fracture or dislocation is identified. There is mild lateral and moderate medial tibiofemoral joint compartment narrowing. There is no significant patellar subluxation. Tricompartment marginal spurring is seen. There is a trace amount joint fluid. No soft tissue swelling is noted. XR/XR knee LT 4V IMPRESSION: OSTEOPENIA AND DEGENERATIVE CHANGES, GREATEST MEDIALLY. Impression dictated by: Meka Wilkins M.D. 04/07/2025 12:17 PM Dictation [facility] Electron[facility] authenticated by: [id number] Date: 04/07/2025 12:17
== END 2025-04-07 11:08 | disposition home or self-care (01) ==
LOC: RAD 11:10
PROVIDERS: PCP Nurse Practitioner; Visit Provider Nurse Practitioner
DX: M25.562 Pain in left knee (principal); M85.88 Other specified disorders of bone density and structure, other site; M17.12 Unilateral primary osteoarthritis, left knee; R53.83 Other fatigue; E03.9 Hypothyroidism, unspecified
CPT/HCPCS: 73564